=== PATIENT | female | born 1930 | race Caucasian/White ===

== ENCOUNTER 2017-01-24 09:52 | Day surgery (SDC) | payer MEDICARE, BC ==
[2017-01-22 12:45] VITALS: BMI 26.5
[~2017-01-24 09:52] MED LIST: DEXAMETHASONE SOD PHOSPHATE 10 MG/ML 1 ML VIAL IV ONE; FAMOTIDINE 20 MG/2 ML VIAL IV PRN; HEPARIN SODIUM,PORCINE 5,000 UNIT/ML 1 ML VIAL SQ ONE; HYDROmorphone 1 MG/ML 1 ML SYRINGE IVP PRN; LIDOCAINE 1% 20 ML VIAL (10MG/ML) FOR IV START INTRADERMA PRN; ONDANSETRON 4 MG/2 ML VIAL IVP PRN; ceFAZolin 2 GM in SODIUM CHLORIDE 0.9% 100 ML IVPB ONE
[2017-01-24 11:06] LABS: Aty Lym Flag Slight; CH 27.7; CHCM 32.3; HCT 41.5 % (34.0-46.0); HDW 2.44; HGB 13.7 gm/dL (11.4-16.0); MCH 28.5 pg (25.0-35.0); MCHC 33.1 g/dL (31.0-37.0); MCV 86.1 fL (80.0-100.0); Mean Platelet Volume 8.2; RBC 4.81 m/uL (3.80-5.40); RDW 13.1 % (11.5-15.5); WBC 4.4 k/uL (3.8-10.6); WBC (Perox) 4.52
[2017-01-24 11:07] LABS: Anion Gap 11 mmol/L; Blood Urea Nitrogen 14 mg/dL (7-17); Calcium 9.4 mg/dL (8.4-10.2); Carbon Dioxide 26 mmol/L (22-30); Chloride 102 mmol/L (98-107); Glucose 97 mg/dL (74-99); Non-African American GFR(MDRD) >60 (>60 ml/min/1.73 sqM); Potassium 4.5 mmol/L (3.5-5.1); Sodium 139 mmol/L (137-145)
[2017-01-24] MEDS: LACTATED RINGERS 1,000 ML IV SCH (11:07)
[2017-01-24 11:38] LABS: Add Differential Manual Differential
[2017-01-24 11:48] LABS: Manual Review Performed; Nucleated Red Blood Cells 0 /100 WBC (0-0); Total Cells Counted 100
[2017-01-24] MEDS ORDERED: SUCCINYLCHOLINE CHLORIDE 100 MG/5 ML SYR IV ONE (13:13)
[2017-01-24] MEDS ORDERED: NEOSTIGMINE 1 MG/ML 10 ML VIAL ONE (13:13)
[2017-01-24] MEDS ORDERED: PROPOFOL 10 MG/ML 20 ML VIAL IV ONE (13:13)
[2017-01-24] MEDS ORDERED: MIDAZOLAM 2 MG/2 ML VIAL ONE (13:13)
[2017-01-24] MEDS ORDERED: ROCURONIUM BROMIDE 10 MG/ML 10 ML VIAL IV ONE (13:13)
[2017-01-24] MEDS ORDERED: PHENYLEPHRINE-0.9% NACL SYG 1 MG/10 ML SYRINGE ONE (13:13)
[2017-01-24] MEDS ORDERED: fentaNYL (PF) 50 MCG/ML 2 ML AMP ONE (13:13)
[2017-01-24] MEDS ORDERED: LIDOCAINE 1% INJ 10MG/ML (20 ML MDV) ONE (13:13)
[2017-01-24] MEDS ORDERED: GLYCOPYRROLATE 0.2 MG/ML 2 ML VIAL ONE (13:13)
[2017-01-24] MEDS ORDERED: ePHEDrine 50 MG/ML 1 ML AMP ONE (13:13)
[2017-01-24] MEDS ORDERED: BUPIVACAIN-EPI 0.25%-1:200,000 30 ML VIAL SQ ONE (14:27)
[2017-01-24 14:55] VITALS: RESP 16; TEMP 98
--- NOTE | 2017-01-24 14:58 | P.OP ---
Date of Procedure: 01/24/17 Preoperative Diagnosis: Recurrent Left flank hernia Postoperative Diagnosis: Recurrent left flank hernia Procedure(s) Performed: OPen repair of left flank hernia with an overlay ultrapro mesh trimmed to 9 x 14 cm Anesthesia: STEPHANIE Surgeon: Nuria Merida Pathology: none sent Condition: stable Disposition: PACU Indications for Procedure: Painful left flank swelling Operative Findings: Hernia sac Description of Procedure: Cheng is an 86-year-old female who had a left spigelian hernia repair with primary suture repair some years ago. She presents with worsening pain and discomfort at the same s containing fat. Computed tomography scan of the abdomen reveals left flank hernia. A detailed discussion was done with the family and the patient the possibility of doing it laparoscopically are open and that that decision will be done in the operating room. Port techniques possible complications were explained. He gives informed consent. .ite with swelling. Cardiac clearance was obtained and she was intermediate to high risk for cardiac complications. Once the patient was taken to the operating room a Richter catheter was placed after general anesthesia with endotracheal intubation but due to concern that there may have containing latex it was completely removed immediately. Abdomen was prepped and draped in the usual sterile surgical fashion and with Valsalva maneuver the fact hernia was easily identifiable. Due to the patient's overall frail condition and significant risk decision was made not to do it laparoscopically and proceed with an open procedure. Abdomen was prepped and draped in the usual sterile surgical fashion usual sterile surgical fashion. Ioban was applied. The area was identified and an oblique incision was made in the left lower quadrant with a 10 blade deep into skin and subcutaneous tissue with the help of electrocautery and with the help of blunt dissection the lateral fascia was all exposed. Previous hernia repair was identified where it would be a typical spigelian hernia. However further dissection was done and a hernia sac was seen lateral to it and much closer to the anterior superior iliac spine. Ileum and I was identified and clipped and transected. After exposing the hernia sac and clearly identifying it and knowing that this did not contain any bowel I proceeded with imbrication of the hernia sac and remaining extraperitoneal and extrafascial. This imbrication was done with the help of Bovie lock thus imbricating the external oblique fascia over it all the way lateral to the anterior axillary line. Once that was done at trimmed 9 x 14 cm ultra Pro mesh was placed over it and sutured into place with 0 PDS. Subcutaneous tissue was closed with running and interrupted 2-0 Vicryl. Skin was closed with 4-0 Monocryl Steri-Strips and Mastisol applied 4 x 4 dressing was applied abdominal binder was applied. Patient tolerated procedure well there were no other complications she was extubated and taken to recovery room in stable condition. Total operative time was 1 hour
[2017-01-24] MEDS ORDERED: traMADol 50 MG TAB PO ONE (15:59)
[2017-01-24 16:13] VITALS: BP 141/69; PULSE 75
== END 2017-01-24 16:49 | disposition home or self-care (01) ==
LOC: OR 09:52
PROVIDERS: ATTEND Surgery
DX: K43.2 Incisional hernia without obstruction or gangrene (principal); I25.118 Atherosclerotic heart disease of native coronary artery with other forms of angina pectoris; I11.0 Hypertensive heart disease with heart failure; I50.9 Heart failure, unspecified; E78.00 Pure hypercholesterolemia, unspecified; E78.5 Hyperlipidemia, unspecified; I48.91 Unspecified atrial fibrillation; E03.9 Hypothyroidism, unspecified; K21.9 Gastro-esophageal reflux disease without esophagitis; K58.9 Irritable bowel syndrome, unspecified; Z82.49 Family history of ischemic heart disease and other diseases of the circulatory system; Z91.040 Latex allergy status; Z79.82 Long term (current) use of aspirin; Z79.899 Other long term (current) drug therapy
CPT/HCPCS: 86900; 86901; 80048; 85025; 86850; 49565; 49568; C1781; J2250; J1644; J1100; J2710; J0690; J2405; J2001; J3010; J2370; J0330; J2704

== ENCOUNTER → 2017-01-28 | Outpatient (CLI) | payer MEDICARE, BC ==
--- NOTE | 2017-01-28 12:00 | XR ---
EXAMINATION TYPE: XR chest 2V DATE OF EXAM: 01/28/2017 11:51 AM COMPARISON: 01/02/14 HISTORY: Shortness of breath TECHNIQUE: Frontal and lateral views of the chest are obtained. FINDINGS: Scattered senescent parenchymal changes noted. Hyperinflation compatible with COPD. No evidence for infiltrate. No evidence for atelectasis. Heart size is stable. Mediastinal structures are stable and grossly unremarkable. No evidence for hilar prominence. Degenerative changes dorsal spine. IMPRESSION: 1. No evidence for acute pulmonary disease.
== END | disposition home or self-care (01) ==
LOC: RADXRMAIN 11:30
PROVIDERS: ATTEND Surgery
DX: I50.9 Heart failure, unspecified (principal)
CPT/HCPCS: 71020

== ENCOUNTER 2017-05-10 17:41 | Inpatient (IN) | payer MEDICARE, BC ==
[2017-05-10 17:48] LABS: Glucose,Whole Blood 142 mg/dL (75-99)
[2017-05-10] MEDS ORDERED: SODIUM CHLORIDE 0.9% 1,000 ML IV STA (17:50)
[2017-05-10] MEDS ORDERED: DIPH,PERTUS(ACELL)TETVAC-LF 0.5 ML VIAL IM ONE (17:52)
--- NOTE | 2017-05-10 17:56 | ED ---
General Adult HPI - General Chief complaint: Syncope Stated complaint: syncope Time Seen by Provider: 05/10/17 17:50 Source: patient, EMS, RN notes reviewed Mode of arrival: EMS Limitations: physical limitation - History of Present Illness Initial comments: Patient is a pleasant 86-year-old female presenting to the emergency department following syncopal episode. Patient was riding on a residential monitor cutting the grass. Patient had a syncopal episode. Patient does not recall the episode well. Patient feels somewhat fatigued otherwise has no complaints. EMS reports patient had a heart rate of 24 that was confirmed by their EKG. Patient was given 1 of atropine with improvement of heart rate. Patient was never hypotensive. No history of similar symptoms previously. - Related Data Home Medications Medication Instructions Recorded Confirmed Aspirin [Adult Low Dose Aspirin EC] 81 mg PO DAILY 01/22/17 01/22/17 Famotidine [Pepcid] 40 mg PO HS 01/22/17 01/24/17 Isosorbide Mononitrate ER [Imdur] 30 mg PO DAILY@1400 01/22/17 01/24/17 Levothyroxine Sodium [Synthroid] 75 mcg PO DAILY 01/22/17 01/24/17 Metoprolol Tartrate [Lopressor] 100 mg PO BID 01/22/17 01/24/17 Multivitamins, Thera [Multivitamin] 1 tab PO DAILY 01/22/17 01/22/17 Potassium 50 meq PO DAILY 01/22/17 Pravastatin Sodium [Pravachol] 40 mg PO HS 01/22/17 01/24/17 amLODIPine [Norvasc] 5 mg PO DIRECTED 01/22/17 01/24/17 Previous Rx's Medication Instructions Recorded Magnesium Hydroxide [Milk of 30 ml PO Q24H PRN #600 ml 01/24/17 Magnesia] traMADol HCL [Ultram] 50 mg PO Q6HR PRN #15 tab 01/24/17 Allergies Allergy/AdvReac Type Severity Reaction Status Date / Time latex Allergy Unknown Itching Verified 05/10/17 17:51 Review of Systems ROS Statement: Those systems with pertinent positive or pertinent negative responses have been documented in the HPI. ROS Other: All systems not noted in ROS Statement are negative. Constitutional: Denies: fever Eyes: Denies: eye pain ENT: Denies: ear pain Respiratory: Denies: cough Cardiovascular: Denies: chest pain, palpitations Endocrine: Reports: fatigue Gastrointestinal: Denies: abdominal pain Genitourinary: Denies: urgency Musculoskeletal: Denies: back pain Skin: Denies: rash Neurological: Denies: headache, weakness, confusion Past Medical History Past Medical History: Atrial Fibrillation, GERD/Reflux, Hyperlipidemia, Hypertension, Osteoarthritis (OA), Thyroid Disorder Additional Past Medical History / Comment(s): ARTHRITIS IN KNEES, LOW THYROID, OCC. CONSTIPATION, STATES SOB WHEN WALKING DISTANCE. History of Any Multi-Drug Resistant Organisms: None Reported Past Surgical History: Cholecystectomy, Hernia Repair, Tonsillectomy Past Anesthesia/Blood Transfusion Reactions: No Reported Reaction Additional Past Anesthesia/Blood Transfusion Reaction / Comment(s): NEVER HAD BLOOD TRANSFUSION Past Psychological History: No Psychological Hx Reported Smoking Status: Never smoker Past Alcohol Use History: None Reported Past Drug Use History: None Reported - Past Family History Mother Family Medical History: Cancer Additional Family Medical History / Comment(s): LIVER CANCER General Exam Limitations: physical limitation General appearance: alert, in no apparent distress Head exam: Present: atraumatic, normocephalic Eye exam: Present: normal appearance, PERRL, EOMI. Absent: nystagmus ENT exam: Present: normal oropharynx Neck exam: Present: normal inspection. Absent: tenderness Respiratory exam: Present: normal lung sounds bilaterally Cardiovascular Exam: Present: regular rate, normal rhythm Expanded Peripheral pulses: 2+: Radial (R), Radial (L) GI/Abdominal exam: Present: soft. Absent: tenderness Extremities exam: Present: other (Skin tears left forearm) Neurological exam: Present: alert, oriented X3, CN II-XII intact. Absent: motor sensory deficit Expanded Patient oriented to: Present: person, place, time Speech: Present: fluid speech Cranial nerves: EOM's Intact: Normal Motor strength exam: RUE: 5, LUE: 5, RLE: 5, LLE: 5 Eye Response: (4) open spontaneously Motor Response: (6) obeys commands Verbal Response: (5) oriented Psychiatric exam: Present: normal affect, normal mood Skin exam: Present: other (Left arm skin tears) Course Vital Signs 05/10/17 05/10/17 17:42 18:02 Temperature 96.8 F L Pulse Rate 66 58 L Respiratory 16 16 Rate Blood Pressure 145/66 130/60 O2 Sat by Pulse 91 L 95 Oximetry EKG Findings - EKG Comments: EKG Findings:: Sinus bradycardia 57. IL 214. QRS 98. QT 46 he 4. QTC 451. Right axis. Incomplete right bundle-branch block. Septal Q waves. No acute ST change. Medical Decision Making - Medical Decision Making Patient reevaluated and resting comfortably in bed. Patient and family updated on results and plan. Patient was placed on a new antiarrhythmic. Medications were held at this time. Case discussed in detail with Dr. gonsales, who will admit for Dr. Leigh. Cardiology will be consulted. - Lab Data Result diagrams: 05/10/17 17:47 05/10/17 17:47 Lab Results 05/10/17 05/10/17 05/10/17 Range/Units 17:47 17:47 17:47 WBC 5.2 (3.8-10.6) k/uL RBC 4.28 (3.80-5.40) m/uL Hgb 12.1 (11.4-16.0) gm/dL Hct 38.1 (34.0-46.0) % MCV 88.9 (80.0-100.0) fL MCH 28.3 (25.0-35.0) pg MCHC 31.8 (31.0-37.0) g/dL RDW 13.8 (11.5-15.5) % Plt Count 159 (150-450) k/uL Neutrophils % 66 % Lymphocytes % 18 % Monocytes % 10 % Eosinophils % 1 % Basophils % 1 % Neutrophils # 3.4 (1.3-7.7) k/uL Lymphocytes # 0.9 L (1.0-4.8) k/uL Monocytes # 0.5 (0-1.0) k/uL Eosinophils # 0.1 (0-0.7) k/uL Basophils # 0.0 (0-0.2) k/uL PT (9.0-12.0) sec INR (<1.1) APTT (22.0-30.0) sec Sodium (137-145) mmol/L Potassium (3.5-5.1) mmol/L Chloride (98-107) mmol/L Carbon Dioxide (22-30) mmol/L Anion Gap mmol/L BUN (7-17) mg/dL Creatinine (0.52-1.04) mg/dL Est GFR (MDRD) Af Amer (>60 ml/min/1.73 sqM) Est GFR (MDRD) Non-Af (>60 ml/min/1.73 sqM) Glucose (74-99) mg/dL POC Glucose (mg/dL) 142 H (75-99) mg/dL POC Glu Assessment Specialist ID Ladan Ward Calcium (8.4-10.2) mg/dL Magnesium (1.6-2.3) mg/dL Total Bilirubin (0.2-1.3) mg/dL AST (14-36) U/L ALT (9-52) U/L Alkaline Phosphatase (38-126) U/L Total Creatine Kinase 32 (30-135) U/L CK-MB (CK-2) 0.6 (0.0-2.4) ng/mL CK-MB (CK-2) Rel Index 1.9 Troponin I <0.012 (0.000-0.034) ng/mL Total Protein (6.3-8.2) g/dL Albumin (3.5-5.0) g/dL TSH (0.465-4.680) mIU/L Free T4 (0.78-2.19) ng/dL Free T3 pg/mL (2.8-5.3) pg/ml 05/10/17 05/10/17 Range/Units 17:47 17:47 WBC (3.8-10.6) k/uL RBC (3.80-5.40) m/uL Hgb (11.4-16.0) gm/dL Hct (34.0-46.0) % MCV (80.0-100.0) fL MCH (25.0-35.0) pg MCHC (31.0-37.0) g/dL RDW (11.5-15.5) % Plt Count (150-450) k/uL Neutrophils % % Lymphocytes % % Monocytes % % Eosinophils % % Basophils % % Neutrophils # (1.3-7.7) k/uL Lymphocytes # (1.0-4.8) k/uL Monocytes # (0-1.0) k/uL Eosinophils # (0-0.7) k/uL Basophils # (0-0.2) k/uL PT 11.8 (9.0-12.0) sec INR 1.2 (<1.1) APTT 24.9 (22.0-30.0) sec Sodium 132 L (137-145) mmol/L Potassium 4.8 (3.5-5.1) mmol/L Chloride 99 (98-107) mmol/L Carbon Dioxide 22 (22-30) mmol/L Anion Gap 11 mmol/L BUN 17 (7-17) mg/dL Creatinine 1.10 H (0.52-1.04) mg/dL Est GFR (MDRD) Af Amer 57 (>60 ml/min/1.73 sqM) Est GFR (MDRD) Non-Af 47 (>60 ml/min/1.73 sqM) Glucose 135 H (74-99) mg/dL POC Glucose (mg/dL) (75-99) mg/dL POC Glu Assessment Specialist ID Calcium 9.0 (8.4-10.2) mg/dL Magnesium 1.7 (1.6-2.3) mg/dL Total Bilirubin 0.5 (0.2-1.3) mg/dL AST 33 (14-36) U/L ALT 47 (9-52) U/L Alkaline Phosphatase 88 (38-126) U/L Total Creatine Kinase (30-135) U/L CK-MB (CK-2) (0.0-2.4) ng/mL CK-MB (CK-2) Rel Index Troponin I (0.000-0.034) ng/mL Total Protein 5.9 L (6.3-8.2) g/dL Albumin 3.8 (3.5-5.0) g/dL TSH 5.320 H (0.465-4.680) mIU/L Free T4 1.32 (0.78-2.19) ng/dL Free T3 pg/mL 3.5 (2.8-5.3) pg/ml - Radiology Data Radiology results: report reviewed (Computed tomography scan of the brain shows no acute process), image reviewed (Chest x-ray shows no acute process) Disposition Clinical Impression: Bradycardia, Syncope Disposition: ADMITTED IP TO THIS [facility] Referrals: Nuria Merida MD [Primary Care Provider] - 1-2 days Decision Time: 18:51
[2017-05-10 18:01] LABS: Basophils % (A) 1 %; CH 27.9; CHCM 31.5; Eosinophils # (A) 0.1 k/uL (0-0.7); Eosinophils % (A) 1 %; HCT 38.1 % (34.0-46.0); HDW 2.25; HGB 12.1 gm/dL (11.4-16.0); Luc # (Auto) 0.21; Luc % (Auto) 4; Lymphocytes # (A) 0.9 k/uL (1.0-4.8); Lymphocytes % (A) 18 %; MCH 28.3 pg (25.0-35.0); MCHC 31.8 g/dL (31.0-37.0); MCV 88.9 fL (80.0-100.0); Mean Platelet Volume 7.4; Monocytes # (A) 0.5 k/uL (0-1.0); Monocytes % (A) 10 %; Neutrophils # (A) 3.4 k/uL (1.3-7.7); Neutrophils % (A) 66 %; RBC 4.28 m/uL (3.80-5.40); RDW 13.8 % (11.5-15.5); WBC 5.2 k/uL (3.8-10.6)
[2017-05-10 18:13] LABS: Magnesium 1.7 mg/dL (1.6-2.3); Potassium 4.8 mmol/L (3.5-5.1); Total Bilirubin 0.5 mg/dL (0.2-1.3); Total Protein 5.9 g/dL (6.3-8.2)
[2017-05-10 18:15] LABS: INR 1.2 (<1.1); Partial Thromboplastin Time 24.9 sec (22.0-30.0); Prothrombin Time 11.8 sec (9.0-12.0)
--- NOTE | 2017-05-10 18:19 | XR ---
EXAMINATION TYPE: XR chest 1V portable DATE OF EXAM: 05/10/2017 COMPARISON: 01/28/2017, 08/26/2011 INDICATION: Syncope TECHNIQUE: Single frontal view of the chest is obtained. FINDINGS: The heart size is enlarged. The pulmonary vasculature is normal. There are some chronic nodularity within the left upper lung field. This was present in 2010. IMPRESSION: 1. No acute pulmonary process.
[2017-05-10 18:23] LABS: Creatine Kinase 32 U/L (30-135)
--- NOTE | 2017-05-10 18:33 | CT ---
EXAMINATION TYPE: CT brain wo con DATE OF EXAM: 05/10/2017 COMPARISON: 08/26/2011 INDICATION: Syncopal episode today. DLP: 1062.30 mGycm, Automated exposure control for dose reduction was used. CONTRAST: None CT of the brain is performed utilizing 3 mm thick sections through the posterior fossa and 3 mm thick sections through the remaining calvarium. Study is performed within 24 hours of arrival to the hosp ital. No abnormal hyperdensity is present to suggest an acute intracranial hemorrhage. No mass lesion is evident. No acute infarcts are evident. Minimal periventricular white matter hypodensity is present, likely on the basis of chronic white matter ischemic changes. Ventricles and sulci are mildly prominent for the patient age. Paranasal sinuses and mastoid air cells within the [id number] are clear. IMPRESSIONS: 1. Age-related atrophy with mild periventricular white matter ischemic type changes. Exam stable fr om 2010.
[2017-05-10 18:35] LABS: Creatine Kinase MB 0.6 ng/mL (0.0-2.4); Troponin I <0.012 ng/mL (0.000-0.034)
[2017-05-10] MEDS ORDERED: NALOXONE 0.4 MG/ML 1 ML VIAL IV PRN (18:51)
[2017-05-10 20:48] VITALS: BMI 25.4
[2017-05-10] MEDS ORDERED: FLECAINIDE 50 MG TAB PO SCH (21:00)
[2017-05-10] MEDS ORDERED: METOPROLOL TARTRATE 50 MG TAB PO SCH (21:00)
[2017-05-10] MEDS: SODIUM CHLORIDE 0.9% 1,000 ML IV SCH (21:30)
[2017-05-11 03:46] LABS: Appearance,Urine Clear (Clear); Bilirubin,Urine Negative (Negative); Glucose,Urine (UA) Negative (Negative); Ketones,Urine Negative (Negative); Leukocyte Esterase,Urine Negative (Negative); Nitrite,Urine Negative (Negative); PH, Urine 6.5 (5.0-8.0); Protein,Urine Trace (Negative); Specific Gravity,Urine 1.007 (1.001-1.035); UA Billing (MACRO vs. MICRO) CHEM; Urobilinogen,Urine <2.0 mg/dL (<2.0)
[2017-05-11] MEDS: LEVOTHYROXINE 75 MCG TAB PO SCH (06:51)
[2017-05-11] MEDS: PRAVASTATIN SODIUM 40 MG TAB PO SCH (08:31)
[2017-05-11] MEDS: ASPIRIN 81 MG CHEW PO SCH (08:31)
[2017-05-11] MEDS: FAMOTIDINE 20 MG TAB PO SCH (08:31)
[2017-05-11] MEDS: CALCIUM CARB-VIT D 500MG-200UN 1 EACH TAB PO SCH (08:31)
[2017-05-11] MEDS: MULTIVITAMINS, THERA 1 EACH TAB PO SCH (08:31)
--- NOTE | 2017-05-11 08:57 | P.CRDCN ---
History of Present Illness Consult date: 05/11/17 Requesting physician: Gagan Segovia Reason for Consult (text): bradycardia, syncope Chief complaint: syncope History of present illness: This is a 86-year-old female patient who follows with Dr. Rubalcava in the office. She has a known history of hyperlipidemia, hypertension, hypothyroidism, atrial fibrillation. Was in her usual state of health until yesterday when she was mowing her lawn on a riding mower and had a syncopal episode actually fell off her lawnmower. EMS was called by her family. Upon EMS arrival, patient was found to be quite bradycardic with a heart rate in the 20s, was given atropine. Patient denies any recent episodes of dizziness, lightheadedness, near-syncope or syncope prior to this. She has recently been complaining of some fatigue as well as increasing shortness of breath when walking for long durations and was recently seen in the office by Dr. Rubalcava. At that time, flecainide was added. Laboratory values showed BUN 17 creatinine 1.1, troponins less than 0.0123 slightly elevated TSH with a normal T4 and T3. Chest x-ray was done that showed no acute pulmonary process. According to nursing staff and chart documentation patient has had no further episodes of significant bradycardia, no recurrent syncopal episodes. On examination, patient is resting comfortably in bed. She denies any complaints of chest discomfort, palpitations, dizziness or lightheadedness. Past Medical History Past Medical History: Atrial Fibrillation, GERD/Reflux, Hyperlipidemia, Hypertension, Osteoarthritis (OA), Thyroid Disorder Additional Past Medical History / Comment(s): ARTHRITIS IN KNEES, LOW THYROID, OCC. CONSTIPATION, STATES SOB WHEN WALKING DISTANCE. History of Any Multi-Drug Resistant Organisms: None Reported Past Surgical History: Cholecystectomy, Hernia Repair, Tonsillectomy Past Anesthesia/Blood Transfusion Reactions: No Reported Reaction Additional Past Anesthesia/Blood Transfusion Reaction / Comment(s): NEVER HAD BLOOD TRANSFUSION Past Psychological History: No Psychological Hx Reported Smoking Status: Never smoker Past Alcohol Use History: None Reported Past Drug Use History: None Reported - Past Family History Mother Family Medical History: Cancer Additional Family Medical History / Comment(s): LIVER CANCER Medications and Allergies Home Medications Medication Instructions Recorded Confirmed Type Famotidine [Pepcid] 40 mg PO DAILY 01/22/17 05/10/17 History Isosorbide Mononitrate ER [Imdur] 30 mg PO DAILY 01/22/17 05/10/17 History Levothyroxine Sodium [Synthroid] 75 mcg PO DAILY 01/22/17 05/10/17 History Metoprolol Tartrate [Lopressor] 100 mg PO BID 01/22/17 05/10/17 History Pravastatin Sodium [Pravachol] 40 mg PO DAILY 01/22/17 05/10/17 History amLODIPine [Norvasc] 5 mg PO DAILY 01/22/17 05/10/17 History Aspirin EC [Ecotrin Low Dose] 81 mg PO DAILY 05/10/17 05/10/17 History Jovanny/D3/Mag11/Zinc/Boss Dyer/Kana/Bor 1 tab PO DAILY 05/10/17 05/10/17 History [Caltrate 600+D Plus Tablet] Flecainide [Tambocor] 50 mg PO BID 05/10/17 05/10/17 History Losartan [Cozaar] 50 mg PO DAILY 05/10/17 05/10/17 History Multivitamins, Thera [Multivitamin 1 tab PO DAILY 05/10/17 05/10/17 History (formulary)] Allergies Allergy/AdvReac Type Severity Reaction Status Date / Time latex Allergy Unknown Itching Verified 05/10/17 17:51 Physical Exam Vitals: Vital Signs Temp Pulse Pulse Resp BP BP Pulse Ox 05/11/17 04:00 96.9 F L 54 L 16 122/83 90 L 05/11/17 00:00 96.2 F L 62 16 127/60 97 05/10/17 20:00 97.0 F L 70 16 125/77 98 05/10/17 19:53 98.0 F 56 L 18 138/67 99 05/10/17 18:49 59 L 18 131/60 97 05/10/17 18:02 58 L 16 130/60 95 05/10/17 17:42 96.8 F L 66 16 145/66 91 L Intake and Output 05/10/17 05/11/17 05/11/17 22:59 06:59 14:59 Intake Total 100 Output Total 200 Balance 100 -200 Intake: Oral 100 Output: Urine 200 Other: # Voids 1 Weight 63 kg 63.2 kg PHYSICAL EXAMINATION: HEENT: Head is atraumatic, normocephalic. Pupils equal, round. Neck is supple. There is no elevated jugular venous pressure. HEART EXAMINATION: Heart sounds regular, S1 and S2 normal. No murmur or gallop heard. CHEST EXAMINATION: Lungs are clear to auscultation, diminished. No chest wall tenderness is noted on palpation or with deep breathing. ABDOMEN: Soft, nontender. Bowel sounds are heard. No organomegaly noted. EXTREMITIES: 1+ peripheral pulses with evidence of trace peripheral edema and no calf tenderness noted. Left arm dressing dry and intact covering apparent skin tears resulting from fall. NEUROLOGIC patient is awake, alert and oriented x3. . Results 05/10/17 17:47 05/10/17 17:47 Cardiac Enzymes 05/10/17 05/10/17 05/10/17 Range/Units 17:47 17:47 23:57 AST 33 (14-36) U/L CK-MB (CK-2) 0.6 (0.0-2.4) ng/mL Troponin I <0.012 <0.012 (0.000-0.034) ng/mL 05/11/17 Range/Units 06:09 AST (14-36) U/L CK-MB (CK-2) (0.0-2.4) ng/mL Troponin I <0.012 (0.000-0.034) ng/mL Coagulation 05/10/17 Range/Units 17:47 PT 11.8 (9.0-12.0) sec APTT 24.9 (22.0-30.0) sec CBC 05/10/17 Range/Units 17:47 WBC 5.2 (3.8-10.6) k/uL RBC 4.28 (3.80-5.40) m/uL Hgb 12.1 (11.4-16.0) gm/dL Hct 38.1 (34.0-46.0) % Plt Count 159 (150-450) k/uL Comprehensive Metabolic Panel 05/10/17 Range/Units 17:47 Sodium 132 L (137-145) mmol/L Potassium 4.8 (3.5-5.1) mmol/L Chloride 99 (98-107) mmol/L Carbon Dioxide 22 (22-30) mmol/L BUN 17 (7-17) mg/dL Creatinine 1.10 H (0.52-1.04) mg/dL Glucose 135 H (74-99) mg/dL Calcium 9.0 (8.4-10.2) mg/dL AST 33 (14-36) U/L ALT 47 (9-52) U/L Alkaline Phosphatase 88 (38-126) U/L Total Protein 5.9 L (6.3-8.2) g/dL Albumin 3.8 (3.5-5.0) g/dL Current Medications Generic Name Dose Route Start Last Admin Trade Name Freq PRN Reason Stop Dose Admin Amlodipine Besylate 5 mg 05/11/17 09:00 Norvasc PO DAILY WALTER Aspirin 81 mg 05/11/17 09:00 05/11/17 08:31 Aspirin PO 81 mg DAILY WALTER Administration Calcium Carbonate 1 each 05/11/17 09:00 05/11/17 08:31 Oscal 500+D PO 1 each DAILY WATLER Administration Famotidine 40 mg 05/11/17 09:00 05/11/17 08:31 Pepcid PO 40 mg DAILY WALTER Administration Flecainide Acetate 50 mg 05/10/17 21:00 05/10/17 21:41 Tambocor PO 50 mg BID WALTER Administration Sodium Chloride 1,000 mls @ 20 mls/hr 05/10/17 19:00 05/10/17 21:30 Saline 0.9% IV Not Given .Q24H WALTER Isosorbide Mononitrate 30 mg 05/11/17 09:00 Imdur PO DAILY WALTER Levothyroxine Sodium 75 mcg 05/11/17 06:30 05/11/17 06:51 Synthroid PO 75 mcg DAILY@0630 WALTER Administration Losartan Potassium 50 mg 05/11/17 09:00 Cozaar PO DAILY WALTER Metoprolol Tartrate 100 mg 05/10/17 21:00 05/10/17 21:41 Lopressor PO Not Given BID WALTER Multivitamins 1 each 05/11/17 12:00 05/11/17 08:31 Theragran PO 1 each DAILY@1200 WALTER Administration Naloxone HCl 0.2 mg 05/10/17 18:51 Narcan IV Q2M PRN Opioid Reversal Pravastatin Sodium 40 mg 05/11/17 09:00 05/11/17 08:31 Pravachol PO 40 mg DAILY WALTER Administration Intake and Output 05/10/17 05/11/17 05/11/17 22:59 06:59 14:59 Intake Total 100 Output Total 200 Balance 100 -200 Intake: Oral 100 Output: Urine 200 Other: # Voids 1 Weight 63 kg 63.2 kg 05/10/17 17:47 05/10/17 17:47 EKG Interpretations (text) Sinus bradycardia arrhythmia with PACs, IVCD Assessment and Plan Plan: Assessment and plan #1 marked bradycardia with resultant syncope #2 paroxysmal atrial fibrillation #3 hypertension #4 hyperlipidemia #5 hypothyroidism From bias binding cutter perspective, we'll obtain a 2-D echo with Doppler. We will hold rate lowering medications. Monitor the patient for further episodes of bradycardia. Further recommendations to follow. RECORDS MANAGEMENT COORDINATOR note has been reviewed, I agree with a documented findings and plan of care. Patient was seen and examined.
[2017-05-11] MEDS ORDERED: ENOXAPARIN 40 MG/0.4 ML SYRINGE SQ SCH (09:30)
--- NOTE | 2017-05-11 09:40 | P.PN ---
Progress Note - Text This is an addendum to the dictated cardiology consultation. The patient has a history of paroxysmal atrial fibrillation, hyperlipidemia and hypertension. She was on her tractor yesterday when she had a syncopal episode while on her tractor. The EKG available to me shows marked sinus bradycardia and subsequently she is in sinus mechanism with frequent PACs but apparently the EMS had a prior documentations of atrial fibrillation but I do not have those records. The patient denies any knowledge of arrhythmia. She had no chest pain , PND or orthopnea. She is quite active physically for her age and has mild dyspnea on exertion. Her systolic function in the past was normal and she had no evidence of inducible ischemia by stress testing in 2013. It is very likely that her syncopal episode is related to bradycardia that could have been exacerbated by the beta ame and the other possibility could be post conversion pauses. At this time I will stop her beta ame and flecainide, we will start her on anticoagulation intravenously. I will obtain an echocardiogram with Doppler. It is very likely that the patient would require a permanent pacemaker and subsequently anticoagulation. I discussed this finding with the patient and she is informed standing and agreement. Thank you for this consult we will follow with you.
[2017-05-11] MEDS ORDERED: HEPARIN SODIUM,PORCINE 5,000 UNIT/ML 1 ML VIAL IV PRN (11:09)
[2017-05-11] MEDS ORDERED: HEPARIN SODIUM,PORCINE 5,000 UNIT/ML 1 ML VIAL IV ONE (11:09)
[2017-05-11] MEDS: amLODIPine 5 MG TAB PO SCH (11:10)
[2017-05-11] MEDS: ISOSORBIDE MONONITRATE ER 30 MG TAB.ER.24H PO SCH (11:11)
[2017-05-11] MEDS: LOSARTAN 50 MG TAB PO SCH (11:11)
[2017-05-11 11:46] LABS: Basophils % (A) 0 %; CHCM 32.4; Eosinophils % (A) 1 %; HCT 39.4 % (34.0-46.0); HGB 12.8 gm/dL (11.4-16.0); Luc # (Auto) 0.28; Luc % (Auto) 4; Lymphocytes # (A) 1.1 k/uL (1.0-4.8); Lymphocytes % (A) 16 %; MCH 28.2 pg (25.0-35.0); MCHC 32.5 g/dL (31.0-37.0); MCV 86.9 fL (80.0-100.0); Mean Platelet Volume 7.2; Monocytes # (A) 0.7 k/uL (0-1.0); Monocytes % (A) 9 %; Neutrophils # (A) 4.9 k/uL (1.3-7.7); Neutrophils % (A) 70 %; RBC 4.53 m/uL (3.80-5.40); RDW 13.3 % (11.5-15.5); WBC (Perox) 7.17
[2017-05-11 11:56] LABS: INR 1.2 (<1.1); Partial Thromboplastin Time 29.3 sec (22.0-30.0); Prothrombin Time 11.8 sec (9.0-12.0)
[2017-05-11] MEDS: HEPARIN SODIUM,PORCINE/D5W PMX 25,000 UNIT in DEXTROSE/WATER 1 500ML.BAG IV SCH (12:22)
--- NOTE | 2017-05-11 14:00 | ECHOF ---
Referral Reason:bradycardia, syncope MEASUREMENTS -------- HEIGHT: 157.5 cm WEIGHT: 63.0 kg BP: 122/83 RVIDd: 3.1 cm (< 3.3) IVSd: 1.1 cm (0.6 - 1.1) LVIDd: 3.6 cm (3.9 - 5.3) LVPWd: 1.2 cm (0.6 - 1.1) IVSs: 1.3 cm LVIDs: 2.2 cm LVPWs: 1.4 cm LA Diam: 4.3 cm (2.7 - 3.8) LAESV Index (A-L): 82.02 ml/m Ao Diam: 3.0 cm (2.0 - 3.7) AV Cusp: 1.9 cm (1.5 - 2.6) MV EXCURSION: 20.954 mm (> 18.000) MV EF SLOPE: 184 mm/s (70 - 150) EPSS: 0.2 cm AV maxP.47 mmHg AV meanP.01 mmHg RAP: 5.00 mmHg RVSP: 67.57 mmHg FINDINGS -------- Sinus rhythm with extra systolic beats. This was a technically good study. The left ventricular size is normal. There is borderline concentric left ventricular hypertrophy. Overall left ventricular systolic function is low-normal with, an EF between 50 - 55 %. The right ventricle is normal in size. LA is severely dilated >40 ml/m2 The right atrium is normal in size. Aortic valve is trileaflet and is mildly thickened. There is mild aortic stenosis present. Peak/mean gradient across the Aortic Valve is 16.47mmHg / 7.01mmHg. The mitral valve leaflets are mildly thickened. Moderate mitral annular calcification present. [id number] mitral regurgitation is present. Moderate tricuspid regurgitation present. There is severe pulmonary hypertension. The right ventricular systolic pressure, as measured by Doppler, is 67.57mmHg. Trace/mild (physiologic) pulmonic regurgitation. The aortic root size is normal. The inferior vena cava is mildly dilated. There is no pericardial effusion. CONCLUSIONS -------- 1. Sinus rhythm with extra systolic beats. 2. The mitral valve leaflets are mildly thickened. 3. Moderate mitral annular calcification present. 4. [id number] mitral regurgitation is present. 5. Moderate tricuspid regurgitation present. 6. There is severe pulmonary hypertension. 7. The right ventricular systolic pressure, as measured by Doppler, is 67.57mmHg. 8. Trace/mild (physiologic) pulmonic regurgitation. 9. The aortic root size is normal. 10. The inferior vena cava is mildly dilated. 11. There is no pericardial effusion. 12. This was a technically good study. 13. The left ventricular size is normal. 14. There is borderline concentric left ventricular hypertrophy. 15. Overall left ventricular systolic function is low-normal with, an EF between 50 - 55 %. 16. LA is severely dilated >40 ml/m2 17. Aortic valve is trileaflet and is mildly thickened. 18. There is mild aortic stenosis present. 19. Peak/mean gradient across the Aortic Valve is 16.47mmHg / 7.01mmHg. TEACHER ASSISTANT: Polly Feldman RDCS
--- NOTE | 2017-05-11 20:15 | HP ---
DATE OF ADMISSION: 05/10/2017 PRESENTING COMPLAINT: Passed out. HISTORY OF PRESENTING COMPLAINT: This is an 86-year-old patient of Dr. Leigh whose chronic stable medical conditions include GERD, hypertension, hyperlipidemia, osteoarthritis, hypothyroid, the past apparently has a history of atrial fibrillation. The patient sees Dr. Montserrat Patel in the office. Recently her dose of beta ame was increased. Patient was riding a tractor, mowing the lawn, he started doing this at 1:00 and mowed until 3 or 4:00. It was about 90 outside. The patient then suddenly passed out. The patient's son and grandson happen to be there and then went inside the house. She was probably out for a couple of minutes. There was no seizure activity noted. There was no palpitations. Patient's bradycardic which is brought in, feeling well now. REVIEW OF SYSTEMS: CONSTITUTIONAL: Tired. HEENT: Decreased hearing. RESPIRATORY: None. CARDIOVASCULAR: As above. GASTROINTESTINAL: Heartburn. GENITOURINARY: None. MUSCULOSKELETAL: Aches and pains in the joints. Dermatological: None. HEMATOLOGICAL: None. LYMPHATIC: None. PSYCHIATRY: None. NEUROLOGICAL: No focal symptoms. Past medical history of atrial fibrillation, GERD, hyperlipidemia, hypertension, osteoarthritis, hypothyroid. PAST SURGICAL HISTORY: Cholecystectomy and ( ) tonsillectomy. SOCIAL HISTORY: Lives by herself. No smoking. No alcohol. FAMILY HISTORY: Liver cancer. HOME MEDICATIONS: 1. Multivitamin 1 tablet p.o. daily. 2. Calcium with vitamin D 1 tablet p.o. daily. 3. Aspirin 81 mg p.o. daily. 4. Norvasc 5 mg p.o. daily. 5. Pravachol 40 mg p.o. daily. 6. Lopressor 100 mg p.o. b.i.d. 7. Cozaar 50 mg p.o. daily. 8. Synthroid 75 mcg p.o. daily. 9. Imdur ER 30 mg p.o. daily. 10. Tambocor 50 mg p.o. b.i.d. 11. Pepcid 40 mg daily. ALLERGIES: LATEX CAUSES ITCHING. PHYSICAL EXAMINATION: Vital signs on presentation: Temperature 96.8, pulse 66, respirations 16, blood pressure 138/66, pulse ox ( ) on room air. GENERAL APPEARANCE: Average build, sitting at the edge of breath, comfortable. EYES: Pupils equal. Conjunctivae normal. HEENT: External appearance of nose and ears normal. Oral cavity normal. NECK: JVD not raised. Mass not palpable. RESPIRATORY: Effort normal. LUNGS: Decreased breath sounds. CARDIOVASCULAR: First and second sounds normal. Minimal edema. ABDOMEN: Soft, nontender. Liver and spleen not palpable. LYMPHATIC: No lymph node palpable in the neck and axilla. PSYCHIATRY: Mood and affect normal. MUSCULOSKELETAL: Evidence of osteoarthritis of multiple joints. INVESTIGATIONS: White count 5.8, hemoglobin 12.0. Potassium 4.8. BUN 13, creatinine 1.10. Troponin less than 0.012. EKG shows normal sinus rhythm with some PACs. ASSESSMENT: 1. Episode of syncope could be from heat exhaustion being out for 3 hours in 90 degrees. At the same time, bradycardia associated with atrial fibrillation could be responsible. 2. Gastroesophageal reflux disease. 3. Essential hypertension. 4. Hyperlipidemia. 5. Hypothyroidism. 6. Possible paroxysmal atrial fibrillation. 7. IV heparin monitoring. PLAN: Cardiology was consulted. Home medications are resumed. Patient was put on IV heparin and held off patient's Lopressor and flecainide. Care was discussed with the patient and daughter at the bedside. Copy to Dr. Leigh.
--- NOTE | 2017-05-11 21:49 | P.GSCN ---
History of Present Illness Consult date: 05/11/17 Reason for Consult: Skin abrasions Requesting physician: Mauricio Ariza History of present illness: The patient is an 86-year-old female who presents to the hospital after having a syncopal episode when she fell of the frameman. She was found by her family members where along her left forearm, she had multiple skin abrasions. Her daughter is at bedside. Her daughter expresses concerns that her mother is still lower mowing the lawn which is over for 4 acres and takes at minimum 2-4 hours to do. The patient reports pain along the left forearm including where her IV is placed in the left antecubital fossa. General surgery is consulted regarding management of her skin. Review of Systems REVIEW OF ORGAN SYSTEMS: CONSTITUTIONAL: Denies any fever or chills. Denies recent weight loss or weight gain. HEENT: Denies any trouble with vision, hearing or nosebleeds. No difficulty swallowing. LYMPHATIC: The patient denies any lumps and bumps around the neck. ENDOCRINE: Has thyroid disorders. Denies any blood sugar glucose intolerance. RESPIRATORY: Denies pneumonia. Denies any troubles with breathing or dyspnea on exertion. CARDIOVASCULAR: Denies any chest pain, palpitations, or recent heart attacks. Has atrial fibrillation. Had syncopal episode. GASTROINTESTINAL: Has heart burn. Has constipation. GENITOURINARY: Denies any blood in urine or increased urinary frequency. MUSCULOSKELETAL: Has back pain, stiffness, joint arthritis. NEUROLOGIC: Denies any numbness or tingling along the distal extremities. No seizure disorders or headaches. PSYCHIATRIC: Denies depression or suidical ideation. HEMATOLOGIC: Has easy bleeding or bruising. Past Medical History Past Medical History: Atrial Fibrillation, GERD/Reflux, Hyperlipidemia, Hypertension, Osteoarthritis (OA), Thyroid Disorder Additional Past Medical History / Comment(s): ARTHRITIS IN KNEES, LOW THYROID, OCC. CONSTIPATION, STATES SOB WHEN WALKING DISTANCE. History of Any Multi-Drug Resistant Organisms: None Reported Past Surgical History: Cholecystectomy, Hernia Repair, Tonsillectomy Past Anesthesia/Blood Transfusion Reactions: No Reported Reaction Additional Past Anesthesia/Blood Transfusion Reaction / Comm: NEVER HAD BLOOD TRANSFUSION Past Psychological History: No Psychological Hx Reported Smoking Status: Never smoker Past Alcohol Use History: None Reported Past Drug Use History: None Reported - Past Family History Mother Family Medical History: Cancer Additional Family Medical History / Comment(s): LIVER CANCER Medications and Allergies Home Medications Medication Instructions Recorded Confirmed Type Famotidine [Pepcid] 40 mg PO DAILY 01/22/17 05/10/17 History Isosorbide Mononitrate ER [Imdur] 30 mg PO DAILY 01/22/17 05/10/17 History Levothyroxine Sodium [Synthroid] 75 mcg PO DAILY 01/22/17 05/10/17 History Metoprolol Tartrate [Lopressor] 100 mg PO BID 01/22/17 05/10/17 History Pravastatin Sodium [Pravachol] 40 mg PO DAILY 01/22/17 05/10/17 History amLODIPine [Norvasc] 5 mg PO DAILY 01/22/17 05/10/17 History Aspirin EC [Ecotrin Low Dose] 81 mg PO DAILY 05/10/17 05/10/17 History Jovanny/D3/Mag11/Zinc/Health Center Assistant/Kana/Bor 1 tab PO DAILY 05/10/17 05/10/17 History [Caltrate 600+D Plus Tablet] Flecainide [Tambocor] 50 mg PO BID 05/10/17 05/10/17 History Losartan [Cozaar] 50 mg PO DAILY 05/10/17 05/10/17 History Multivitamins, Thera [Multivitamin 1 tab PO DAILY 05/10/17 05/10/17 History (formulary)] Allergies Allergy/AdvReac Type Severity Reaction Status Date / Time latex Allergy Unknown Itching Verified 05/10/17 17:51 Surgical - Exam Vital Signs Temp Pulse Resp BP Pulse Ox 96.8 F L 66 16 145/66 91 L 05/10/17 17:42 05/10/17 17:42 05/10/17 17:42 05/10/17 17:42 05/10/17 17:42 GENERAL: Well developed and in no acute distress. Pleasant. HEENT: No sclera icterus. Extraocular movements grossly intact. Moist buccal mucosa. Head is atraumatic, normocephalic. Hears conversational speech. No nasal drainage. NECK: Supple without lymphadenopathy. No JV distention. CHEST: Non-labored respirations and equal bilateral excursions. CARDIOVASCULAR: Irregular rate and irregular rhythm. Palpable 2+ radial pulses. ABDOMEN: Soft, nontender. Nondistended. MUSCULOSKELETAL: No clubbing, cyanosis or edema. SKIN: 4 x 5 cm skin abrasion of the left proximal forearm with 3 cm defect along the distal forearm volar aspect. Steri-Strips present however with active oozing. NEUROLOGIC: No focal or lateralizing signs. PSYCH: Appropriate affect. Alert and oriented to person, place and time. Results - Labs 05/11/17 11:19 05/10/17 17:47 Abnormal Lab Results - Last 24 Hours (Table) 05/11/17 05/11/17 05/11/17 Range/Units 03:28 11:19 17:04 Plt Count 148 L (150-450) k/uL APTT 68.3 H (22.0-30.0) sec Urine Protein Trace H (Negative) Assessment and Plan (1) Atrial fibrillation Status: Acute (2) Skin laceration Status: Acute (3) Contact with powered lawnmower as cause of accidental injury Status: Acute (4) Bradycardia Status: Acute (5) Syncope Status: Acute Plan: 1. Recommend petroleum gauze along the left forearm to minimize risk for skin infection and tearing of her wounds. 2. Heparin drip for history of irregular rhythm. 3. At bedside, initial forearm dressing was discontinued which had sanguinous shadowing. Petroleum gauze was placed along proximal and distal forearm followed by 4 x 4. Patient tolerated the procedure. 4. Recommend changing antecubital fossa IV to contralateral arm. 5. Recommend dressing changes with petroleum gauze and Davonte wrap daily. 6. Discussion with patient includes avoiding lawnmower per request of her daughter at bedside. Will follow as needed.
[2017-05-12] MEDS: SODIUM CHLORIDE 0.9% 1,000 ML IV SCH (01:53)
[2017-05-12] MEDS: LEVOTHYROXINE 75 MCG TAB PO SCH (06:10)
[2017-05-12 06:41] LABS: Basophils % (A) 0 %; CH 28.1; CHCM 32.2; Eosinophils % (A) 1 %; HCT 39.5 % (34.0-46.0); HDW 2.25; HGB 12.6 gm/dL (11.4-16.0); Luc # (Auto) 0.21; Luc % (Auto) 3; Lymphocytes # (A) 0.9 k/uL (1.0-4.8); Lymphocytes % (A) 15 %; MCH 27.9 pg (25.0-35.0); MCHC 31.8 g/dL (31.0-37.0); MCV 87.6 fL (80.0-100.0); Monocytes # (A) 0.7 k/uL (0-1.0); Monocytes % (A) 10 %; Neutrophils # (A) 4.6 k/uL (1.3-7.7); Neutrophils % (A) 71 %; RBC 4.52 m/uL (3.80-5.40); RDW 13.5 % (11.5-15.5); WBC 6.4 k/uL (3.8-10.6); WBC (Perox) 6.73
[2017-05-12] MEDS: ISOSORBIDE MONONITRATE ER 30 MG TAB.ER.24H PO SCH (09:07)
[2017-05-12] MEDS: LOSARTAN 50 MG TAB PO SCH ×2 (09:07→22:13)
[2017-05-12] MEDS: amLODIPine 5 MG TAB PO SCH ×2 (09:07→22:13)
[2017-05-12] MEDS: CALCIUM CARB-VIT D 500MG-200UN 1 EACH TAB PO SCH (09:10)
[2017-05-12] MEDS: FAMOTIDINE 20 MG TAB PO SCH (09:10)
[2017-05-12] MEDS: ASPIRIN 81 MG CHEW PO SCH (09:10)
[2017-05-12] MEDS: PRAVASTATIN SODIUM 40 MG TAB PO SCH (09:10)
--- NOTE | 2017-05-12 10:48 | P.PN ---
Progress Note - Text Patient seen and evaluated. Her daughter at bedside. Patient is much more comfortable with dressings along arm. IV site changed. We'll follow as needed.
[2017-05-12] MEDS: MULTIVITAMINS, THERA 1 EACH TAB PO SCH (12:48)
[2017-05-12] MEDS: HEPARIN SODIUM,PORCINE/D5W PMX 25,000 UNIT in DEXTROSE/WATER 1 500ML.BAG IV SCH (13:27)
--- NOTE | 2017-05-12 16:34 | P.PN ---
Progress Note - Text DATE OF SERVICE: 05/12/2017 PRESENTING COMPLAINT: Passed out INTERVAL HISTORY: This is an 86-year-old female who had a syncopal episode. Was found to be in atrial fibrillation on arrival. Patient is sitting in the chair with family around, appears comfortable. Eating and tolerating her diet, ambulating within the room, moving her bowels. REVIEW OF SYSTEMS: Done for constitutional ,cardiovascular, GI, pulmonary with relevant findings as above. CURRENT MEDICATIONS Norvasc, Tambocor, heparin, Imdur, levothyroxine, Lopressor, Pravachol, PHYSICAL EXAM: VITAL SIGNS: 96.2, pulse 83, respiratory rate 18, blood pressure 118/70, oxygen saturation 93 % on room air GENERAL APPEARANCE: . Sitting in chair, not in distress. EYES: Pupils equal. Conjunctiva normal. NECK: JVD not raised. Mass not palpable. RESPIRATORY: Respiratory effort normal. Lungs clear to auscultation. CARDIOVASCULAR: First and second sounds normal. No edema. ABDOMEN: Soft. Liver and spleen not palpable. No tenderness. No mass palpable. PSYCHIATRY: Alert and oriented x3. Mood and affect normal. NEUROLOGICAL: Cranial nerves grossly intact. No facial asymmetry. Power and sensation grossly intact INVESTIGATIONS: CBC unremarkable, APTT 109.6 ASSESSMENT: Syncopal episode, either from heat exhaustion, bradycardia associated with atrial fibrillation as well. Gastroesophageal reflux disease Hyperlipidemia Hypothyroidism Possible paroxysmal atrial fibrillation. IV heparin monitoring. PLAN: Heparin drip continues, syncopal episode may well be related to bradycardia that has been exacerbated by her beta ame therefore beta ame flecainide stopped. Patient may in fact need a pacemaker with anticoagulation. We'll continue current medication and treatment plan. Will follow closely GENERAL MERCHANDISE MANAGER statement: Patient was seen and examined by nurse practitioner Juliana Plascencia in all elements of the case discussed with attending is Dr. Segovia
--- NOTE | 2017-05-12 16:42 | PN ---
Mrs. Gonzalez is an 86-year-old female who presented with syncopal episode. She had paroxysmal atrial fibrillation. She continues to be in sinus mechanism, although she had episode of sinus bradycardia. She has no chest pain. No dizziness. No palpitation. She continues to be on Norvasc 5 mg daily, aspirin once a day, IV heparin, Imdur 30 mg daily, losartan 50 mg daily. I reviewed the notes from the EMS that reported atrial fibrillation, although I do not have rhythm strip. PHYSICAL EXAMINATION: Blood pressure 117/70 with a heart in the 80s. LUNGS: Clear. HEART: Regular rate and rhythm. S1, S2, no S3, with systolic murmur. No diastolic murmur. ABDOMEN: Soft, nontender. EXTREMITIES: No edema. Lab data revealed a hemoglobin of 12.6. IMPRESSION: 1. Syncope, possible sick sinus syndrome and postconversion pauses. 2. History of hypertension. 3. Paroxysmal atrial fibrillation. 4. Hyperlipidemia. RECOMMENDATION: Patient had an echocardiogram done yesterday that showed a preserved systolic function with an ejection fraction 50% to 55% with moderate tricuspid regurgitation and severe pulmonary hypertension with mild to moderate mitral regurgitation. Will continue holding her beta ame and Tambocor. Most likely she would require a permanent pacemaker but will review her rhythm strip. There are two options; either proceeding with the permanent pacemaker implantation or consider a loop recorded. I have discussed both options with the patient and her family. Depending on her progress, further recommendation will be made.
--- NOTE | 2017-05-12 18:29 | P.PN ---
Subjective Principal diagnosis: History of laceration along the left forearm. The patient is a pleasant 86-year-old female who comes in following laceration of the left forearm after having a syncopal episode and collapsing from a lawnmower. She has history of atrial fibrillation. Her daughter is at bedside. She reports being more comfortable with dressings along arm. Her IV site is changed. Objective - Vital Signs Vital signs: Vital Signs Temp 96.9 F L 05/12/17 04:00 Pulse 83 05/12/17 04:00 Resp 18 05/12/17 04:00 BP 117/76 05/12/17 04:00 Pulse Ox 95 05/12/17 04:00 Intake & Output 05/11/17 05/12/17 05/12/17 18:59 06:59 18:59 Intake Total 400 10 Output Total 700 600 Balance -300 -590 Weight 63.2 kg 62.7 kg Intake: IV 10 Invasive Line 2 10 Intake, IV Titration 400 Amount Sodium Chloride 0.9% 1, 400 000 ml @ 20 mls/hr IV . Q24H [facility] Rx#:[id number] Output: Urine 700 600 Other: # Voids 1 - Exam GENERAL: Well developed and in no acute distress. Pleasant. HEENT: No sclera icterus. Extraocular movements grossly intact. Moist buccal mucosa. Head is atraumatic, normocephalic. Hears conversational speech. No nasal drainage. NECK: Supple without lymphadenopathy. No JV distention. CHEST: Non-labored respirations and equal bilateral excursions. CARDIOVASCULAR: Irregular rate and rhythm. Palpable 2+ radial pulses. ABDOMEN: Soft, nontender. Nondistended. MUSCULOSKELETAL: No clubbing, cyanosis or edema. NEUROLOGIC: No focal or lateralizing signs. PSYCH: Appropriate affect. Alert and oriented to person, place and time. SKIN: Dressings along forearm clean dry and intact without serosanguineous drainage. - Labs CBC & Chem 7: 05/12/17 06:01 05/10/17 17:47 Labs: Abnormal Lab Results - Last 24 Hours (Table) 05/11/17 05/11/17 05/12/17 Range/Units 11:19 17:04 06:01 Plt Count 148 L 140 L (150-450) k/uL Lymphocytes # 0.9 L (1.0-4.8) k/uL APTT 68.3 H (22.0-30.0) sec 05/12/17 Range/Units 06:01 Plt Count (150-450) k/uL Lymphocytes # (1.0-4.8) k/uL APTT 36.2 H (22.0-30.0) sec Assessment and Plan (1) Atrial fibrillation Status: Acute (2) Skin laceration Status: Acute (3) Contact with powered lawnmower as cause of accidental injury Status: Acute (4) Bradycardia Status: Acute (5) Syncope Status: Acute Plan: 1. Continue petroleum gauze along the left forearm to minimize risk for skin infection and tearing of her wounds. 2. Upon discharge home, bacitracin ointment used at least once daily. 3. She may follow-up with me as outpatient.
[2017-05-13] MEDS: SODIUM CHLORIDE 0.9% 1,000 ML IV SCH ×3 (01:01→21:51)
[2017-05-13] MEDS: LEVOTHYROXINE 75 MCG TAB PO SCH (06:25)
[2017-05-13 06:27] LABS: Basophils % (A) 0 %; CH 28.5; CHCM 33.3; Eosinophils # (A) 0.1 k/uL (0-0.7); Eosinophils % (A) 1 %; HCT 38.3 % (34.0-46.0); HDW 2.36; HGB 12.5 gm/dL (11.4-16.0); Luc # (Auto) 0.26; Luc % (Auto) 4; Lymphocytes % (A) 15 %; MCH 28.1 pg (25.0-35.0); MCHC 32.7 g/dL (31.0-37.0); MCV 85.8 fL (80.0-100.0); Mean Platelet Volume 7.2; Monocytes # (A) 0.6 k/uL (0-1.0); Monocytes % (A) 9 %; Neutrophils # (A) 4.7 k/uL (1.3-7.7); Neutrophils % (A) 71 %; RBC 4.46 m/uL (3.80-5.40); RDW 13.5 % (11.5-15.5); WBC 6.7 k/uL (3.8-10.6); WBC (Perox) 7.21
[2017-05-13 06:38] LABS: Anion Gap 9 mmol/L; Blood Urea Nitrogen 9 mg/dL (7-17); Calcium 8.8 mg/dL (8.4-10.2); Carbon Dioxide 24 mmol/L (22-30); Chloride 99 mmol/L (98-107); Glucose 102 mg/dL (74-99); Non-African American GFR(MDRD) >60 (>60 ml/min/1.73 sqM); Potassium 3.6 mmol/L (3.5-5.1); Sodium 132 mmol/L (137-145)
--- NOTE | 2017-05-13 07:21 | PN ---
DATE OF SERVICE: 05/12/2017 ATTENDING NOTE: This patient was seen and examined by me earlier today. I reviewed the note of my nurse practitioner, Ms. Plascencia. Discussed additional findings below. This is a patient who presented and was admitted with episode of syncope. She had paroxysmal atrial fibrillation and she also had episodes of sinus bradycardia. Cardiology is considering a pacemaker. On exam, sitting in bed, comfortable. RESPIRATORY: Effort normal. LUNGS: Clear. CARDIOVASCULAR: First and second sounds normal. ASSESSMENT: Syncopal episode differential includes heat exhaustion could be bradycardia and/or paroxysmal atrial fibrillation. PLAN: Continue current medication and treatment plan. Await further determination from cardiology in terms of pacemaker.
[2017-05-13] MEDS: LOSARTAN 50 MG TAB PO SCH (08:28)
[2017-05-13] MEDS: amLODIPine 5 MG TAB PO SCH (08:28)
[2017-05-13] MEDS: ISOSORBIDE MONONITRATE ER 30 MG TAB.ER.24H PO SCH (08:28)
[2017-05-13] MEDS: FAMOTIDINE 20 MG TAB PO SCH (08:28)
[2017-05-13] MEDS: PRAVASTATIN SODIUM 40 MG TAB PO SCH (08:28)
[2017-05-13] MEDS: CALCIUM CARB-VIT D 500MG-200UN 1 EACH TAB PO SCH (08:28)
[2017-05-13] MEDS: MULTIVITAMINS, THERA 1 EACH TAB PO SCH (08:29)
--- NOTE | 2017-05-13 11:27 | PN ---
Mrs. Gonzalez is an 86-year-old female who presented with a syncopal episode. She has continued to be in sinus mechanism since her admission, her rate is stable. She has no evidence of atrial fibrillation and no pauses. She denies any chest pain. No dizziness. No palpitation. She continues to be at this time on amlodipine 5 mg daily, Pepcid, isosorbide mononitrate 30 mg daily, losartan 50 mg daily and pravastatin 40 mg daily. PHYSICAL EXAMINATION: Blood pressure 119/60 with the heart rate in the low 100s. LUNGS: Clear. HEART: Regular rate and rhythm. S1, S2, no S3, no rub. ABDOMEN: Soft, nontender. EXTREMITIES: No edema. Lab data revealed BUN and creatinine of 9 and 0.8. Potassium ( ). IMPRESSION: 1. Syncopal episode possible bradycardia could be induced by the medication or slow rewarming with a post conversion pause. 2. Hypertension. RECOMMENDATIONS: I have discussed with the patient and her family the findings. I have discussed with them the possibility that she may require a pacemaker, but since no significant pauses were noted at this time, I will start her back on Lopressor is 25 mg twice a day. We will proceed with a loop recorder implantation. Will initiate anticoagulation with Eliquis. Depending on her progress, further recommendation will be made.
[2017-05-13] MEDS: METOPROLOL TARTRATE 25 MG TAB PO SCH ×2 (11:29→21:48)
[2017-05-13] MEDS ORDERED: HEPARIN SODIUM,PORCINE 5,000 UNIT/ML 1 ML VIAL IV PRN (18:49)
[2017-05-13] MEDS ORDERED: HEPARIN SODIUM,PORCINE/D5W PMX 25,000 UNIT in DEXTROSE/WATER 1 500ML.BAG IV SCH (19:00)
--- NOTE | 2017-05-13 21:07 | P.PN ---
Progress Note - Text DATE OF SERVICE: 05/13/2017 PRESENTING COMPLAINT: Passed out INTERVAL HISTORY: This is an 86-year-old female who had a syncopal episode. Was found to be in atrial fibrillation on arrival. Sustained a left arm laceration. Currently patient has converted to sinus rhythm rate in the 80s, Patient is sitting in the chair with family around, appears comfortable. Eating and tolerating her diet, ambulating within the room, and hallway with her family, moving her bowels today. REVIEW OF SYSTEMS: Done for constitutional ,cardiovascular, GI, pulmonary with relevant findings as above. CURRENT MEDICATIONS Norvasc, Tambocor, heparin, Imdur, levothyroxine, Lopressor 25 mg twice a day, Pravachol, PHYSICAL EXAM: VITAL SIGNS: Temperature 97.3, pulse 63 respiratory rate 18, blood pressure 127/71, oxygen saturation 96% on room air. GENERAL APPEARANCE: . Lying in the bed, appears comfortable. EYES: Pupils equal. Conjunctiva normal. NECK: JVD not raised. Mass not palpable. RESPIRATORY: Respiratory effort normal. Lungs clear to auscultation. CARDIOVASCULAR: First and second sounds normal. No edema. ABDOMEN: Soft. Liver and spleen not palpable. No tenderness. No mass palpable. PSYCHIATRY: Alert and oriented x3. Mood and affect normal. INTEGUMENT: Left arm laceration covered with dressing no drainage noted. INVESTIGATIONS: Platelet count 134, sodium 132, ASSESSMENT: Syncopal episode, either from heat exhaustion, bradycardia associated with atrial fibrillation improved Gastroesophageal reflux disease Hyperlipidemia Hypothyroidism Possible paroxysmal atrial fibrillation, now converted to sinus rhythm. Left arm laceration, improving PLAN: Heparin drip discontinued today in favor of Eliquis. Per cardiology no significant pauses have been noted therefore no pacemaker at this time however we'll proceed with a loop recorder implantation. We'll continue to follow closely. CABINET BUILDER statement: Patient was seen and examined by nurse practitioner Juliana Plascencia in all elements of the case discussed with attending is Dr. Segovia
[2017-05-14] MEDS: CALCIUM CARB-VIT D 500MG-200UN 1 EACH TAB PO SCH (06:07)
[2017-05-14] MEDS: METOPROLOL TARTRATE 25 MG TAB PO SCH (06:07)
[2017-05-14] MEDS: LEVOTHYROXINE 75 MCG TAB PO SCH (06:07)
[2017-05-14] MEDS: FAMOTIDINE 20 MG TAB PO SCH (06:07)
[2017-05-14] MEDS: PRAVASTATIN SODIUM 40 MG TAB PO SCH (06:07)
[2017-05-14] MEDS: LOSARTAN 50 MG TAB PO SCH (06:07)
[2017-05-14] MEDS: ISOSORBIDE MONONITRATE ER 30 MG TAB.ER.24H PO SCH (06:07)
[2017-05-14] MEDS: SODIUM CHLORIDE 0.9% 1,000 ML IV SCH (06:09)
[2017-05-14 06:24] LABS: Aty Lym Flag Slight; CH 28.5; CHCM 32.8; HCT 38.8 % (34.0-46.0); HGB 12.7 gm/dL (11.4-16.0); MCH 28.6 pg (25.0-35.0); MCHC 32.8 g/dL (31.0-37.0); MCV 87.1 fL (80.0-100.0); Mean Platelet Volume 7.5; RBC 4.45 m/uL (3.80-5.40); RDW 13.4 % (11.5-15.5); WBC 5.6 k/uL (3.8-10.6); WBC (Perox) 5.82
[2017-05-14 08:08] LABS: Add Differential Manual Differential
[2017-05-14 08:10] LABS: Manual Review Performed; Nucleated Red Blood Cells 0 /100 WBC (0-0); Total Cells Counted 100
[2017-05-14 08:58] VITALS: RESP 20
[2017-05-14] MEDS ORDERED: SODIUM CHLORIDE 0.9% 1,000 ML IV ONE (09:15)
[2017-05-14] MEDS ORDERED: ceFAZolin 2 GM in SODIUM CHLORIDE 0.9% 100 ML IVPB STA (09:20)
[2017-05-14] MEDS ORDERED: fentaNYL (PF) 50 MCG/ML 2 ML AMP IVP ONE (09:24)
[2017-05-14] MEDS ORDERED: LIDOCAINE 2% INJ 20 MG/ML SQ ONE (09:33)
[2017-05-14] MEDS ORDERED: ACETAMINOPHEN TAB 325 MG TAB PO PRN (09:46)
--- NOTE | 2017-05-14 09:51 | P.PCN ---
Date of Procedure: 05/14/17 Preoperative Diagnosis: Unexplained syncope Postoperative Diagnosis: The same Procedure(s) Performed: Loop recorder insertion Implants: Indications for Procedure: Operative Findings: Description of Procedure: This patient was brought to the lab in a fasting state. She was prepped and draped in the usual fashion. She was given IV sedation with fentanyl 25 g. The duration of sedation was about 15 minutes. The skin over the third to fourth intercostal space on the left side was infiltrated with lidocaine, parallel to the sternum. An incision was made. Reveal linq device was then inserted in the usual fashion. Patient tolerated the procedure well. Patient tolerated the procedure well. A stay silk suture was applied for hemostasis. The of sensing thresholds were excellent with R waves of 0.3 mV., Patient is programmed to a sensitivity of 0.035 mV. AF detection is on. Tachycardia detection rate is programmed to 143 and the [place] detection rate was programmed to 30 beats. Pauses of 3 seconds was programmed for detection. Plan : Patient could be discharged home later today
--- NOTE | 2017-05-14 09:51 | PN ---
DATE OF SERVICE: 05/13/2017 PRESENTING COMPLAINT: Passed out. ATTENDING NOTE: This patient was seen and examined by me on 05/13/2017. I reviewed the note of my nurse practitioner, Ms. Plascencia. Reviewed, discussed, additional findings as below. This patient presented with syncope. There was a note about A. fib from the EMS, but there is EMS report available. Patient's heart rate has been controlled here. No further symptoms. On examination, lungs are clear. CARDIOVASCULAR: First and second sounds normal. ASSESSMENT: Episode of syncope with atrial fibrillation reported from EMS. Patient presentation simply could be heat exhaustion, being outside. PLAN: We will have the nursing staff try to get the EMS run sheet, so we can actually look at the strips. In the meantime per cardiology, patient will be started on Eliquis and loop recorder is being placed. Care was discussed with the patient and family at the bedside.
[2017-05-14 12:00] VITALS: BP 137/67; PULSE 73
[2017-05-14 12:01] VITALS: TEMP 96.9
[2017-05-14] MEDS: MULTIVITAMINS, THERA 1 EACH TAB PO SCH (12:05)
--- NOTE | 2017-05-17 12:02 | DS ---
DATE OF ADMISSION: 05/10/2017 DATE OF DISCHARGE: 05/14/2017 FINAL DIAGNOSES: 1. Paroxysmal atrial fibrillation. 2. Severe sinus bradycardia. 3. Gastroesophageal reflux disease. 4. Hyperlipidemia. 5. Hypothyroidism. 6. Left arm laceration secondary to fall. 7. Severe secondary pulmonary hypertension. 8. Moderate tricuspid regurgitation, nonrheumatic. HOSPITAL COURSE: This very pleasant lady using lawnmower outside for a good 3 hours, pretty warm and the patient passed out. On the EMS run she did report atrial fibrillation though no strips could be found. Patient definitely found to be severely bradycardic. Patient's flecainide and beta ame initially held. Patient did have several episodes of low heart rate. Laceration was treated. Anticoagulation is being coordinated by Cardiology. Day of discharge care was discussed in detail with patient's family. Patient was put on a small dose of Lopressor. On the day of discharge patient is doing better. Tolerating a diet. No further episodes. On examination, LUNGS: Fair air entry. CARDIOVASCULAR: First and second sounds normal. PSYCH: Alert and oriented x3. Discharge planning more than 35 minutes. CONSULTATIONS: 1. Dr. Moraes from Cardiology. 2. Dr. Shepard from General Surgery. PROCEDURE: Loop recorder was placed. Additionally a 2-D echocardiogram showed severe pulmonary hypertension, moderate tricuspid regurgitation. DISCHARGE MEDICATIONS: 1. Pepcid 40 mg p.o. daily. 2. Imdur ER 30 mg daily. 3. Synthroid 75 mcg p.o. daily. 4. Pravachol 40 mg daily. 5. Aspirin 81 mg p.o. daily. 6. Caltrate 600 Plus D 1 tablet p.o. daily. 7. Cozaar 30 p.o. daily. 8. Multivitamin 1 tablet daily. 9. Lopressor 25 p.o. b.i.d. 10. Eliquis as per Cardiology. Discharge planning more than 35 minutes. Follow up with Dr. Leigh on 05/21/17. Follow up with Dr. Shepard on 06/11/17, follow with Dr. Marialuisa Cunningham on 06/20/17. Local bacitracin cream twice daily.
== END 2017-05-14 14:51 | disposition home or self-care (01) | DRG 262 ==
LOC: EC 17:41 → 6SEL 18:51
PROVIDERS: ADMIT Hospitalist; ATTEND Hospitalist
PROC: 3E0234Z Introduction of Serum, Toxoid and Vaccine into Muscle, Percutaneous Approach (ICD-10-PCS; 2017-05-10)
PROC: 2W2DX4Z Dressing of Left Lower Arm using Bandage (ICD-10-PCS; 2017-05-11)
PROC: 0JH602Z Insertion of Monitoring Device into Chest Subcutaneous Tissue and Fascia, Open Approach (ICD-10-PCS; principal; 2017-05-14 09:24)
DX: I48.0 Paroxysmal atrial fibrillation (principal); I27.2 Other secondary pulmonary hypertension; R06.09 Other forms of dyspnea; I49.5 Sick sinus syndrome; I10 Essential (primary) hypertension; E03.9 Hypothyroidism, unspecified; R55 Syncope and collapse; I36.1 Nonrheumatic tricuspid (valve) insufficiency; I45.10 Unspecified right bundle-branch block; T46.2X5A Adverse effect of other antidysrhythmic drugs, initial encounter; T44.7X5A Adverse effect of beta-adrenoreceptor antagonists, initial encounter; E78.5 Hyperlipidemia, unspecified; K21.9 Gastro-esophageal reflux disease without esophagitis; K59.00 Constipation, unspecified; R06.02 Shortness of breath; M17.0 Bilateral primary osteoarthritis of knee; I34.0 Nonrheumatic mitral (valve) insufficiency; I49.1 Atrial premature depolarization; T67.5XXA Heat exhaustion, unspecified, initial encounter; H91.90 Unspecified hearing loss, unspecified ear; S51.812A Laceration without foreign body of left forearm, initial encounter; Z79.899 Other long term (current) drug therapy; Z91.040 Latex allergy status; Z71.3 Dietary counseling and surveillance; Z90.49 Acquired absence of other specified parts of digestive tract; Z80.0 Family history of malignant neoplasm of digestive organs; Z79.82 Long term (current) use of aspirin; Z23 Encounter for immunization; W28.XXXA Contact with powered lawn mower, initial encounter
CPT/HCPCS: 33282; 36415; 70450; 71010; 80048; 80053; 81003; 82550; 82553; 83735; 84439; 84443; 84481; 84484; 85025; 85610; 85730; 90471; 90715; 93005; 93306; 96360; 96361; 99285

== ENCOUNTER 2017-05-27 12:01 | Inpatient (IN) | payer MEDICARE, BC ==
--- NOTE | 2017-05-27 12:06 | ED ---
General Adult HPI - General Stated complaint: Dizzy Time Seen by Provider: 05/27/17 12:02 Source: RN notes reviewed - History of Present Illness Initial comments: This is an 86-year-old female presents emergency department after having recently having a defibrillator placed. Patient states she had it done because she was passing out. Patient states since last night she has been lightheaded and feels as though she's given a passout but has not. Patient states she had a much worse episode today and that is why she called EMS. Patient states it has happened multiple times since yesterday. Patient denies any chest pain or palpitations. Patient states it's not a sensation of falling overeats definitely sensation of passing out like she did last time just prior to receiving her defibrillator. Patient told me to cardiology recently told she might need a pacemaker as well. Patient denies any recent fever chills or cough. Patient denies abdominal pain patient denies nausea vomiting diarrhea. Patient states currently she is feeling fine and has no symptoms whatsoever. - Related Data Home Medications Medication Instructions Recorded Confirmed Famotidine [Pepcid] 40 mg PO DAILY 01/22/17 05/27/17 Isosorbide Mononitrate ER [Imdur] 30 mg PO DAILY 01/22/17 05/27/17 Levothyroxine Sodium [Synthroid] 75 mcg PO DAILY 01/22/17 05/27/17 Pravastatin Sodium [Pravachol] 40 mg PO DAILY 01/22/17 05/27/17 Aspirin EC [Ecotrin Low Dose] 81 mg PO DAILY 05/10/17 05/27/17 Jovanny/D3/Mag11/Zinc/Marzipan Maker/Kana/Bor 1 tab PO DAILY 05/10/17 05/27/17 [Caltrate 600+D Plus Tablet] Losartan [Cozaar] 50 mg PO DAILY 05/10/17 05/27/17 Multivitamins, Thera [Multivitamin 1 tab PO DAILY 05/10/17 05/27/17 (formulary)] Apixaban [Eliquis] 2.5 mg PO BID 05/27/17 05/27/17 Flecainide Acetate 100 mg PO DAILY 05/27/17 05/27/17 Metoprolol Tartrate [Lopressor] 25 mg PO DAILY 05/27/17 05/27/17 Nitroglycerin Sl Tabs [Nitrostat] 0.4 mg SUBLINGUAL Q5M PRN 05/27/17 05/27/17 amLODIPine [Norvasc] 5 mg PO DAILY 05/27/17 05/27/17 Allergies Allergy/AdvReac Type Severity Reaction Status Date / Time latex Allergy Unknown Itching Verified 05/27/17 12:14 Review of Systems ROS Statement: Those systems with pertinent positive or pertinent negative responses have been documented in the HPI. ROS Other: All systems not noted in ROS Statement are negative. Past Medical History Past Medical History: Atrial Fibrillation, GERD/Reflux, Hyperlipidemia, Hypertension, Osteoarthritis (OA), Thyroid Disorder Additional Past Medical History / Comment(s): ARTHRITIS IN KNEES, LOW THYROID, OCC. CONSTIPATION, STATES SOB WHEN WALKING DISTANCE. History of Any Multi-Drug Resistant Organisms: None Reported Past Surgical History: Cholecystectomy, Hernia Repair, Tonsillectomy Past Anesthesia/Blood Transfusion Reactions: No Reported Reaction Additional Past Anesthesia/Blood Transfusion Reaction / Comment(s): NEVER HAD BLOOD TRANSFUSION Past Psychological History: No Psychological Hx Reported Smoking Status: Never smoker Past Alcohol Use History: None Reported Past Drug Use History: None Reported - Past Family History Mother Family Medical History: Cancer Additional Family Medical History / Comment(s): LIVER CANCER General Exam - General Exam Comments Initial Comments: GENERAL: Patient is well-developed and well-nourished. Patient is nontoxic and well- hydrated and is in no acute distress. ENT: Neck is soft and supple. No significant lymphadenopathy is noted. Oropharynx is clear. Moist mucous membranes. Neck has full range of motion without eliciting any pain. EYES: The sclera were anicteric and conjunctiva were pink and moist. Extraocular movements were intact and pupils were equal round and reactive to light. Eyelids were unremarkable. PULMONARY: Unlabored respirations. Good breath sounds bilaterally. No audible rales rhonchi or wheezing was noted. CARDIOVASCULAR: There is a regular rate and rhythm without any murmurs gallops or rubs. ABDOMEN: Soft and nontender with normal bowel sounds. No palpable organomegaly was noted. There is no palpable pulsatile mass. SKIN: Skin is clear with no lesions or rashes and otherwise unremarkable. NEUROLOGIC: Patient is alert and oriented x3. Cranial nerves II through XII are grossly intact. Motor and sensory are also intact. Normal speech, volume and content. Symmetrical smile. MUSCULOSKELETAL: Normal extremities with adequate strength and full range of motion. No lower extremity swelling or edema. No calf tenderness. PSYCHIATRIC: Normal psychiatric evaluation. Normal interpersonal interactions appears functionally intact in deals appropriately with others. No signs of depression. No signs of anxiety. Course Vital Signs 05/27/17 05/27/17 12:03 14:13 Temperature 97.5 F L Pulse Rate 76 66 Respiratory 18 18 Rate Blood Pressure 199/95 164/79 O2 Sat by Pulse 92 L Oximetry Medical Decision Making - Medical Decision Making EKG shows sinus rhythm at 67 bpm ID interval is 220 QRS is 104 QT interval is 420 QTC is 443. Patient's EKG shows no ST segment elevation or depression or T- wave abdomen is noted. Chest x-ray shows no acute abnormality. I spoke with Dr. Segovia he agreed to admit the patient admitted the patient consult cardiology and I wrote admitting orders. - Lab Data Result diagrams: 05/27/17 12:20 05/27/17 12:20 Lab Results 05/27/17 05/27/17 05/27/17 Range/Units 12:20 12:20 12:20 WBC 4.5 (3.8-10.6) k/uL RBC 4.51 (3.80-5.40) m/uL Hgb 13.0 (11.4-16.0) gm/dL Hct 39.2 (34.0-46.0) % MCV 87.1 (80.0-100.0) fL MCH 28.8 (25.0-35.0) pg MCHC 33.1 (31.0-37.0) g/dL RDW 13.5 (11.5-15.5) % Plt Count 220 (150-450) k/uL Neutrophils % 64 % Lymphocytes % 21 % Monocytes % 10 % Eosinophils % 1 % Basophils % 0 % Neutrophils # 2.9 (1.3-7.7) k/uL Lymphocytes # 1.0 (1.0-4.8) k/uL Monocytes # 0.5 (0-1.0) k/uL Eosinophils # 0.1 (0-0.7) k/uL Basophils # 0.0 (0-0.2) k/uL PT (9.0-12.0) sec INR (<1.1) APTT (22.0-30.0) sec Sodium 133 L (137-145) mmol/L Potassium 4.8 (3.5-5.1) mmol/L Chloride 99 (98-107) mmol/L Carbon Dioxide 27 (22-30) mmol/L Anion Gap 7 mmol/L BUN 11 (7-17) mg/dL Creatinine 0.83 (0.52-1.04) mg/dL Est GFR (MDRD) Af Amer >60 (>60 ml/min/1.73 sqM) Est GFR (MDRD) Non-Af >60 (>60 ml/min/1.73 sqM) Glucose 103 H (74-99) mg/dL Calcium 9.3 (8.4-10.2) mg/dL Magnesium 1.9 (1.6-2.3) mg/dL Total Bilirubin 0.7 (0.2-1.3) mg/dL AST 30 (14-36) U/L ALT 24 (9-52) U/L Alkaline Phosphatase 86 (38-126) U/L Total Creatine Kinase 23 L (30-135) U/L CK-MB (CK-2) 0.6 (0.0-2.4) ng/mL CK-MB (CK-2) Rel Index 2.6 Troponin I <0.012 (0.000-0.034) ng/mL Total Protein 6.6 (6.3-8.2) g/dL Albumin 4.0 (3.5-5.0) g/dL 05/27/17 Range/Units 12:20 WBC (3.8-10.6) k/uL RBC (3.80-5.40) m/uL Hgb (11.4-16.0) gm/dL Hct (34.0-46.0) % MCV (80.0-100.0) fL MCH (25.0-35.0) pg MCHC (31.0-37.0) g/dL RDW (11.5-15.5) % Plt Count (150-450) k/uL Neutrophils % % Lymphocytes % % Monocytes % % Eosinophils % % Basophils % % Neutrophils # (1.3-7.7) k/uL Lymphocytes # (1.0-4.8) k/uL Monocytes # (0-1.0) k/uL Eosinophils # (0-0.7) k/uL Basophils # (0-0.2) k/uL PT 11.2 (9.0-12.0) sec INR 1.1 (<1.1) APTT 26.9 (22.0-30.0) sec Sodium (137-145) mmol/L Potassium (3.5-5.1) mmol/L Chloride (98-107) mmol/L Carbon Dioxide (22-30) mmol/L Anion Gap mmol/L BUN (7-17) mg/dL Creatinine (0.52-1.04) mg/dL Est GFR (MDRD) Af Amer (>60 ml/min/1.73 sqM) Est GFR (MDRD) Non-Af (>60 ml/min/1.73 sqM) Glucose (74-99) mg/dL Calcium (8.4-10.2) mg/dL Magnesium (1.6-2.3) mg/dL Total Bilirubin (0.2-1.3) mg/dL AST (14-36) U/L ALT (9-52) U/L Alkaline Phosphatase (38-126) U/L Total Creatine Kinase (30-135) U/L CK-MB (CK-2) (0.0-2.4) ng/mL CK-MB (CK-2) Rel Index Troponin I (0.000-0.034) ng/mL Total Protein (6.3-8.2) g/dL Albumin (3.5-5.0) g/dL Disposition Clinical Impression: Near syncope, Bradycardia Disposition: ADMITTED IP TO THIS [facility] Time of Disposition: 14:31
[2017-05-27 12:49] LABS: Basophils % (A) 0 %; CH 28.4; CHCM 32.7; Eosinophils # (A) 0.1 k/uL (0-0.7); Eosinophils % (A) 1 %; HCT 39.2 % (34.0-46.0); HDW 2.24; Luc # (Auto) 0.17; Luc % (Auto) 4; Lymphocytes % (A) 21 %; MCH 28.8 pg (25.0-35.0); MCHC 33.1 g/dL (31.0-37.0); MCV 87.1 fL (80.0-100.0); Mean Platelet Volume 7.3; Monocytes # (A) 0.5 k/uL (0-1.0); Monocytes % (A) 10 %; Neutrophils # (A) 2.9 k/uL (1.3-7.7); Neutrophils % (A) 64 %; RBC 4.51 m/uL (3.80-5.40); RDW 13.5 % (11.5-15.5); WBC 4.5 k/uL (3.8-10.6); WBC (Perox) 4.49
[2017-05-27 12:53] LABS: ALT 24 U/L (9-52); AST 30 U/L (14-36); Alkaline Phosphatase 86 U/L (38-126); Anion Gap 7 mmol/L; Blood Urea Nitrogen 11 mg/dL (7-17); Calcium 9.3 mg/dL (8.4-10.2); Carbon Dioxide 27 mmol/L (22-30); Chloride 99 mmol/L (98-107); Glucose 103 mg/dL (74-99); INR 1.1 (<1.1); Magnesium 1.9 mg/dL (1.6-2.3); Non-African American GFR(MDRD) >60 (>60 ml/min/1.73 sqM); Partial Thromboplastin Time 26.9 sec (22.0-30.0); Potassium 4.8 mmol/L (3.5-5.1); Prothrombin Time 11.2 sec (9.0-12.0); Sodium 133 mmol/L (137-145); Total Bilirubin 0.7 mg/dL (0.2-1.3); Total Protein 6.6 g/dL (6.3-8.2)
--- NOTE | 2017-05-27 12:57 | XR ---
EXAMINATION TYPE: XR chest 2V DATE OF EXAM: 05/27/2017 COMPARISON: 05/10/2017 and 01/16/2011 HISTORY: 86-year-old female with chest pain TECHNIQUE: Frontal and lateral views FINDINGS: The heart is borderline enlarged. Loop recorder is present projecting over the left heart margin. The re is mild hyperinflation with flattening of the hemidiaphragms. Mild diffuse interstitial prominence also noted. Some nodular densities in the left upper lobe appear to have been present in 2010 but ma y be slightly increased. No consolidation or pleural effusion. IMPRESSION: 1. Borderline heart size. 2. Suspect underlying COPD. 3. Some nodular left upper lobe densities appear increased from 2011. A benign etiology such as calci fied granulomas is favored. Recommend nonemergent follow-up CT chest to further evaluate. 4. Otherwise, no acute process.
[2017-05-27 13:17] LABS: Creatine Kinase 23 U/L (30-135)
[2017-05-27 13:30] LABS: Creatine Kinase MB 0.6 ng/mL (0.0-2.4); Troponin I <0.012 ng/mL (0.000-0.034)
[2017-05-27] MEDS ORDERED: NITROGLYCERIN SL TABS 0.4 MG TAB SUBLINGUAL PRN (14:31)
[2017-05-27 18:38] LABS: Creatine Kinase 23 U/L (30-135)
[2017-05-27 18:47] LABS: Creatine Kinase MB 0.6 ng/mL (0.0-2.4); Troponin I <0.012 ng/mL (0.000-0.034)
--- NOTE | 2017-05-27 21:40 | P.HPIM ---
History of Present Illness H&P Date: 05/27/17 Chief Complaint: Nearly passed out This is a pleasant 86-year-old patient who was recently in the hospital for a syncopal episode. On that admission there was a reported atrial fibrillation by the EMS run sheet but there were no strips were found also patient is found to be significantly bradycardic. Patient's flecainide and beta ame was discontinued in later on small dose of beta ame was added. A loop recorder was placed. Patient had gone home on 05/14/2017. For 2 days patient is having these feelings of a heaviness coming in the head and nearly passing out she had a much more severe episode today, while she was standing up. And she decided to come in. Denies chest pain, no perspiration Review of Systems GEN.: tired EYES: None HEENT: Decreased hearing NECK: None RESPIRATORY: None CARDIOVASCULAR: None GASTROINTESTINAL: None GENITOURINARY: None MUSCULOSKELETAL: . The joint LYMPHATICS: None HEMATOLOGICAL: None PSYCHIATRY: None NEUROLOGICAL: No focal symptoms, no tongue biting, no incontinence Past Medical History Past Medical History: Atrial Fibrillation, GERD/Reflux, Hyperlipidemia, Hypertension, Osteoarthritis (OA), Syncope, Thyroid Disorder Additional Past Medical History / Comment(s): ARTHRITIS IN KNEES, LOW THYROID, OCC. CONSTIPATION, severe secondary pulmonary hypertension, moderate tricuspid regurgitation History of Any Multi-Drug Resistant Organisms: None Reported Past Surgical History: Cholecystectomy, Hernia Repair, Tonsillectomy Additional Past Surgical History / Comment(s): LOOP RECORDER PLACED 05-14-17 Past Anesthesia/Blood Transfusion Reactions: No Reported Reaction Additional Past Anesthesia/Blood Transfusion Reaction / Comment(s): NEVER HAD BLOOD TRANSFUSION Smoking Status: Never smoker Past Alcohol Use History: None Reported Additional Past Alcohol Use History / Comment(s): Lives alone - Past Family History Mother Family Medical History: Cancer Additional Family Medical History / Comment(s): LIVER CANCER Medications and Allergies Home Medications Medication Instructions Recorded Confirmed Type Famotidine [Pepcid] 40 mg PO DAILY 01/22/17 05/27/17 History Isosorbide Mononitrate ER [Imdur] 30 mg PO DAILY 01/22/17 05/27/17 History Levothyroxine Sodium [Synthroid] 75 mcg PO DAILY 01/22/17 05/27/17 History Pravastatin Sodium [Pravachol] 40 mg PO DAILY 01/22/17 05/27/17 History Aspirin EC [Ecotrin Low Dose] 81 mg PO DAILY 05/10/17 05/27/17 History Jovanny/D3/Mag11/Zinc/Long Line Teamster/Kana/Bor 1 tab PO DAILY 05/10/17 05/27/17 History [Caltrate 600+D Plus Tablet] Losartan [Cozaar] 50 mg PO DAILY 05/10/17 05/27/17 History Multivitamins, Thera [Multivitamin 1 tab PO DAILY 05/10/17 05/27/17 History (formulary)] Apixaban [Eliquis] 2.5 mg PO BID 05/27/17 05/27/17 History Flecainide Acetate 100 mg PO DAILY 05/27/17 05/27/17 History Metoprolol Tartrate [Lopressor] 25 mg PO DAILY 05/27/17 05/27/17 History Nitroglycerin Sl Tabs [Nitrostat] 0.4 mg SUBLINGUAL Q5M PRN 05/27/17 05/27/17 History amLODIPine [Norvasc] 5 mg PO DAILY 05/27/17 05/27/17 History Allergies Allergy/AdvReac Type Severity Reaction Status Date / Time latex Allergy Unknown Itching Verified 05/27/17 12:14 Physical Exam VITAL SIGNS: 97.5, 76, 18, 199/95 repeated 160/89, 98% room air GENERAL: Average built, sitting up at the edge of the bed, anxious appearing. EYES: Pupils equal. Conjunctiva normal. HEENT: External appearance of nose and ears normal, oral cavity grossly normal, decreased hearing. NECK: JVD not raised; masses not palpable. HEART: First and second heart sounds are normal; no edema. LUNGS: Respiratory rate normal; clear to auscultation. ABDOMEN: Soft, nontender, liver spleen not palpable, no masses palpable. LYMPHATICS: No lymph nodes palpable in the axilla and neck. PSYCH: Alert and oriented x3; mood and affect anxious appearingl. NEUROLOGICAL: Cranial nerves grossly intact; no facial asymmetry, power and sensation grossly intact. Results Results: White count 4.5, hemoglobin 13 EKG-incomplete right bundle branch block, first-degree AV block CBC & Chem 7: 05/27/17 12:20 05/27/17 12:20 Labs: Assessment and Plan Plan: ASSESSMENT: -This is a patient who presented recently with episode of syncope and the EMS and reported into fibrillation but no strip was found. Patient is found to be severely bradycardic and flecainide was discontinued and a small dose of beta ame was added. Patient had a loop recorder placed. Patient now presents with another episode of nearly passing out her EKG is unremarkable group recorder remains in place. Need to consider arrhythmia -GERD -Hyperlipidemia -Hypothyroidism -Severe secondary pulmonary hypertension cause unknown -Moderate tricuspid regurgitation nonrheumatic Plan: Home medications were resumed. Will check the patient still on flecainide as listed the home medication. Cardiology is being consulted. Loop recorder recordings to be obtained. Care was discussed with the patient.
[2017-05-28 00:32] LABS: Creatine Kinase <20 U/L (30-135)
[2017-05-28 00:45] LABS: Creatine Kinase MB 0.5 ng/mL (0.0-2.4); Troponin I <0.012 ng/mL (0.000-0.034)
[2017-05-28 03:39] LABS: Cholesterol 145 mg/dL (<200); HDL Cholesterol 66 mg/dL (40-60); Triglycerides 85 mg/dL (<150)
[2017-05-28] MEDS ORDERED: ASPIRIN 325 MG TAB PO SCH (09:00)
--- NOTE | 2017-05-28 11:00 | P.CRDCN ---
History of Present Illness Consult date: 05/28/17 History of present illness: This is a 86-year-old female with history of hypertension, diabetes mellitus and atrial fibrillation who was being treated with flecainide in the past, was recently admitted to the hospital with an episode of syncope. At the time it was felt that syncope could be cardiac and probably patient had bradyarrhythmias. However, none were documented. Patient had a loop recorder insertion and went home. Patient is now brought back with complaints of a tight feeling in the head and symptoms of lightheadedness and near-syncope. When the paramedics arrived on the scene patient was complaining of dizziness but seemed to be in a sinus rhythm with first-degree heart block with a systolic blood pressure in the range of 170. Since admission here patient hasn' t been noted to have any Sigmund arrhythmias. We'll going to have [employer] to interrogate the device. Patient will be monitored closely. If significant bradyarrhythmias documented, patient may need pacemaker Review of Systems As per the chart Past Medical History Past Medical History: Atrial Fibrillation, GERD/Reflux, Hyperlipidemia, Hypertension, Osteoarthritis (OA), Syncope, Thyroid Disorder Additional Past Medical History / Comment(s): ARTHRITIS IN KNEES, LOW THYROID, OCC. CONSTIPATION, severe secondary pulmonary hypertension, moderate tricuspid regurgitation History of Any Multi-Drug Resistant Organisms: None Reported Past Surgical History: Cholecystectomy, Hernia Repair, Tonsillectomy Additional Past Surgical History / Comment(s): LOOP RECORDER PLACED 05-14-17 Past Anesthesia/Blood Transfusion Reactions: No Reported Reaction Additional Past Anesthesia/Blood Transfusion Reaction / Comment(s): NEVER HAD BLOOD TRANSFUSION Smoking Status: Never smoker Past Alcohol Use History: None Reported Additional Past Alcohol Use History / Comment(s): Lives alone - Past Family History Mother Family Medical History: Cancer Additional Family Medical History / Comment(s): LIVER CANCER Medications and Allergies Home Medications Medication Instructions Recorded Confirmed Type Famotidine [Pepcid] 40 mg PO DAILY 01/22/17 05/27/17 History Isosorbide Mononitrate ER [Imdur] 30 mg PO DAILY 01/22/17 05/27/17 History Levothyroxine Sodium [Synthroid] 75 mcg PO DAILY 01/22/17 05/27/17 History Pravastatin Sodium [Pravachol] 40 mg PO DAILY 01/22/17 05/27/17 History Aspirin EC [Ecotrin Low Dose] 81 mg PO DAILY 05/10/17 05/27/17 History Jovanny/D3/Mag11/Zinc/Pin Setter/Kana/Bor 1 tab PO DAILY 05/10/17 05/27/17 History [Caltrate 600+D Plus Tablet] Losartan [Cozaar] 50 mg PO DAILY 05/10/17 05/27/17 History Multivitamins, Thera [Multivitamin 1 tab PO DAILY 05/10/17 05/27/17 History (formulary)] Apixaban [Eliquis] 2.5 mg PO BID 05/27/17 05/27/17 History Flecainide Acetate 100 mg PO DAILY 05/27/17 05/27/17 History Metoprolol Tartrate [Lopressor] 25 mg PO DAILY 05/27/17 05/27/17 History Nitroglycerin Sl Tabs [Nitrostat] 0.4 mg SUBLINGUAL Q5M PRN 05/27/17 05/27/17 History amLODIPine [Norvasc] 5 mg PO DAILY 05/27/17 05/27/17 History Allergies Allergy/AdvReac Type Severity Reaction Status Date / Time latex Allergy Unknown Itching Verified 05/27/17 12:14 Physical Exam Vitals: Vital Signs Temp Pulse Pulse Resp BP BP Pulse Ox 05/28/17 08:13 97.4 F L 54 L 17 136/54 96 05/28/17 04:00 97.0 F L 65 18 153/72 94 L 05/28/17 00:00 96.9 F L 66 18 149/75 96 05/27/17 20:00 97.1 F L 60 18 157/76 95 05/27/17 15:31 96.9 F L 66 18 98 05/27/17 15:24 97.5 F L 70 18 168/89 98 05/27/17 14:52 70 18 168/89 98 05/27/17 14:13 66 18 164/79 92 L 05/27/17 12:03 97.5 F L 76 18 199/95 Intake and Output 05/27/17 05/28/17 05/28/17 22:59 06:59 14:59 Intake Total 240 Output Total 300 200 Balance -300 40 Intake: Oral 240 Output: Urine 300 200 Other: # Voids 1 1 1 Weight 66.224 kg 59.2 kg GENERAL EXAM: Patient is alert and oriented and doesn't appear to be in any acute distress HEENT: Normocephalic. Normal reaction of pupils, equal size, normal range of extraocular motion. No erythema or exudates in the throat. NECK: No masses, no nuchal rigidity. CHEST: No chest wall deformity. LUNGS: Equal air entry with no crackles or wheeze. HEART: S1 and S2 normal with no audible mumurs or gallops. Regular rhythm, femorals equal on both sides.. ABDOMEN: No hepatosplenomegaly, normal bowel sounds, no guarding or rigidity. SKIN: No rashes CENTRAL NERVOUS SYSTEM: No focal deficits. EXTREMITIES: No cyanosis, clubbing or edema. Results 05/27/17 12:20 05/27/17 12:20 Cardiac Enzymes 05/27/17 05/27/17 05/27/17 Range/Units 12:20 12:20 18:05 AST 30 (14-36) U/L CK-MB (CK-2) 0.6 0.6 (0.0-2.4) ng/mL Troponin I <0.012 <0.012 (0.000-0.034) ng/mL 05/27/17 Range/Units 23:59 AST (14-36) U/L CK-MB (CK-2) 0.5 (0.0-2.4) ng/mL Troponin I <0.012 (0.000-0.034) ng/mL Coagulation 05/27/17 Range/Units 12:20 PT 11.2 (9.0-12.0) sec APTT 26.9 (22.0-30.0) sec Lipids 05/27/17 Range/Units 12:20 Triglycerides 85 (<150) mg/dL Cholesterol 145 (<200) mg/dL HDL Cholesterol 66 H (40-60) mg/dL CBC 05/27/17 Range/Units 12:20 WBC 4.5 (3.8-10.6) k/uL RBC 4.51 (3.80-5.40) m/uL Hgb 13.0 (11.4-16.0) gm/dL Hct 39.2 (34.0-46.0) % Plt Count 220 (150-450) k/uL Comprehensive Metabolic Panel 05/27/17 Range/Units 12:20 Sodium 133 L (137-145) mmol/L Potassium 4.8 (3.5-5.1) mmol/L Chloride 99 (98-107) mmol/L Carbon Dioxide 27 (22-30) mmol/L BUN 11 (7-17) mg/dL Creatinine 0.83 (0.52-1.04) mg/dL Glucose 103 H (74-99) mg/dL Calcium 9.3 (8.4-10.2) mg/dL AST 30 (14-36) U/L ALT 24 (9-52) U/L Alkaline Phosphatase 86 (38-126) U/L Total Protein 6.6 (6.3-8.2) g/dL Albumin 4.0 (3.5-5.0) g/dL Current Medications Generic Name Dose Route Start Last Admin Trade Name Freq PRN Reason Stop Dose Admin Aspirin 325 mg 05/28/17 09:00 05/28/17 08:41 Aspirin PO 325 mg DAILY WALTER Administration Nitroglycerin 0.4 mg 05/27/17 14:31 Nitrostat SUBLINGUAL Q5M PRN Chest Pain Intake and Output 05/27/17 05/28/17 05/28/17 22:59 06:59 14:59 Intake Total 240 Output Total 300 200 Balance -300 40 Intake: Oral 240 Output: Urine 300 200 Other: # Voids 1 1 1 Weight 66.224 kg 59.2 kg 05/27/17 12:20 05/27/17 12:20 EKG Interpretations (text) Showed sinus rhythm with a first-degree heart block Assessment and Plan (1) Near syncope Status: Acute (2) Atrial fibrillation Status: Acute Plan: Patient will be monitored. We'll check her device for any bradyarrhythmias. We 'll control her blood pressure optimally. Further recommendations depend upon the clinical course
--- NOTE | 2017-05-28 13:43 | P.PN ---
Progress Note - Text Presenting complaint: Near syncope Interval history: This is a pleasant 86-year-old patient who was recently in the hospital for a syncopal episode. On that admission there was a reported atrial fibrillation by the EMS run sheet but there were no strips were found also patient is found to be significantly bradycardic. Patient's flecainide and beta ame was discontinued in later on small dose of beta ame was added. A loop recorder was placed. Patient had gone home on 05/14/2017. For 2 days patient is having these feelings of a heaviness coming in the head and nearly passing out she had a much more severe episode today, while she was standing up. And she decided to come in. Denies chest pain, no perspiration. May 28/2017: Today the patient sitting up in the bed. 2 daughters at the bedside. Has had no further episodes. Dr. Song from cardiology inform me that [employer] informed him that patient did have episode of sinus pauses and bradycardia and the patient will need a pacemaker. Review of systems: Was done for constitutional, cardiovascular, GI, pulmonary. relevant finding as above Current medications are reviewed Physical exam: VITAL SIGNS: 97.4, 54, 17, 136/54, 96% room air GENERAL: Sitting up comfortable, anxious appearing. EYES: Pupils equal. Conjunctiva normal. NECK: JVD not raised; masses not palpable. HEART: First and second heart sounds are normal; no edema. LUNGS: Respiratory rate normal; clear to auscultation. ABDOMEN: Soft, nontender, liver spleen not palpable, no masses palpable. PSYCH: Alert and oriented x3; mood and affect anxious appearingl. 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 If okay with cardiology. Patient is being scheduled for pacemaker tomorrow discuss care with patient and the family the bedside. Discussed with Dr. Song from cardiology
[2017-05-28] MEDS: FAMOTIDINE 20 MG TAB PO SCH (15:21)
[2017-05-28] MEDS: amLODIPine 5 MG TAB PO SCH (15:21)
[2017-05-28] MEDS: LOSARTAN 50 MG TAB PO SCH (15:22)
[2017-05-28] MEDS: ISOSORBIDE MONONITRATE ER 30 MG TAB.ER.24H PO SCH (15:22)
[2017-05-28] MEDS: APIXABAN 2.5 MG TABLET PO SCH (21:30)
[2017-05-28] MEDS: PRAVASTATIN SODIUM 40 MG TAB PO SCH (21:30)
[2017-05-29] MEDS: amLODIPine 5 MG TAB PO SCH (07:16)
[2017-05-29] MEDS: LEVOTHYROXINE 75 MCG TAB PO SCH (07:16)
[2017-05-29] MEDS: ASPIRIN 81 MG CHEW PO SCH (07:16)
[2017-05-29] MEDS: LOSARTAN 50 MG TAB PO SCH (07:17)
[2017-05-29] MEDS: ISOSORBIDE MONONITRATE ER 30 MG TAB.ER.24H PO SCH (07:17)
[2017-05-29] MEDS: FLECAINIDE 50 MG TAB PO SCH (07:19)
[2017-05-29] MEDS: METOPROLOL TARTRATE 25 MG TAB PO SCH (07:19)
[2017-05-29] MEDS ORDERED: ceFAZolin 2 GM in SODIUM CHLORIDE 0.9% 100 ML IVPB ONE (08:51)
[2017-05-29] MEDS ORDERED: ceFAZolin 1,000 MG in SODIUM CHLORIDE 0.9% IRRIGATIO 250 ML IRRIGATION ONE (08:51)
[2017-05-29] MEDS: MULTIVITAMINS, THERA 1 EACH TAB PO SCH (11:46)
[2017-05-29] MEDS: FAMOTIDINE 20 MG TAB PO SCH (11:46)
[2017-05-29] MEDS: CALCIUM CARB-VIT D 500MG-200UN 1 EACH TAB PO SCH (11:47)
[2017-05-29] MEDS: SODIUM CHLORIDE 0.9% 1,000 ML IV SCH (11:47)
[2017-05-29] MEDS: APIXABAN 2.5 MG TABLET PO SCH (11:55)
--- NOTE | 2017-05-29 16:12 | P.PN ---
<Gagan Segovia - Last Filed: 05/29/17 16:16> Progress Note - Text Date of service: 05/29/2017 Attending note. Ex line this patient was seen and examined by me today. I reviewed the note of my nurse practitioner Valarielonnie. Discussed and reviewed additional finding as below. This patient admitted with syncope and found to have severe bradycardia and sinus pauses on the low precordial. Pending to have a pacemaker placed On examination lungs are clear, cardio vascular first seconds are normal Assessment severe bradycardia with sinus pauses indicated of sick sinus disease awaiting pacemaker implant care was discussed with the patient continue current medication treatment plan follow <ThaisJuliana Omid - Last Filed: 05/29/17 16:20> Progress Note - Text Presenting complaint: Near syncope.. Interval history: This is a pleasant 86-year-old patient who was recently in the hospital for a syncopal episode. On that admission there was a reported atrial fibrillation by the EMS run sheet but there were no strips were found also patient is found to be significantly bradycardic. Patient's flecainide and beta ame was discontinued in later on small dose of beta ame was added. A loop recorder was placed. Patient had gone home on 05/14/2017. For 2 days patient is having these feelings of a heaviness coming in the head and nearly passing out she had a much more severe episode today, while she was standing up. And she decided to come in. Denies chest pain, no perspiration. 05/29/2017: Patient sitting up in bed, waiting for surgery for pacemaker placement later this afternoon. In good spirits, currently nothing by mouth. May 28/2017: Today the patient sitting up in the bed. 2 daughters at the bedside. Has had no further episodes. Dr. Buchanan from cardiology inform me that [employer] informed him that patient did have episode of sinus pauses and bradycardia and the patient will need a pacemaker. Review of systems: Was done for constitutional, cardiovascular, GI, pulmonary. relevant finding as above Current medications are reviewed Physical exam: VITAL SIGNS: Temperature 96.7, pulse 93, respirations 18, blood pressure 147/82 , oxygen saturation 96% on room air. GENERAL: Sitting up comfortable, anxious appearing. EYES: Pupils equal. Conjunctiva normal. NECK: JVD not raised; masses not palpable. HEART: First and second heart sounds are normal; no edema. LUNGS: Respiratory rate normal; clear to auscultation. ABDOMEN: Soft, nontender, liver spleen not palpable, no masses palpable. PSYCH: Alert and oriented x3; mood and affect relaxed . Labs Assessment: -Recurrent episodes of syncope now known to be from sick sinus node causing pauses and bradycardia -GERD -Hyperlipidemia -Hypothyroidism -Severe secondary pulmonary hypertension cause unknown -Moderate tricuspid regurgitation nonrheumatic Plan: Patient is scheduled for pacemaker placement today discussed care with patient and the son at the bedside. SEWING MACHINE BOBBIN WINDER statement: Patient seen and examined by nurse practitioner Juliana Plascencia in all elements of the case discussed with attending Dr. Segovia.
[2017-05-29] MEDS: PRAVASTATIN SODIUM 40 MG TAB PO SCH (20:40)
[2017-05-30] MEDS: amLODIPine 5 MG TAB PO SCH (06:31)
[2017-05-30] MEDS: LEVOTHYROXINE 75 MCG TAB PO SCH (06:31)
[2017-05-30] MEDS: PRAVASTATIN SODIUM 40 MG TAB PO SCH (06:32)
[2017-05-30] MEDS: ASPIRIN 81 MG CHEW PO SCH (06:32)
[2017-05-30] MEDS: ISOSORBIDE MONONITRATE ER 30 MG TAB.ER.24H PO SCH (06:34)
[2017-05-30] MEDS: FAMOTIDINE 20 MG TAB PO SCH (06:34)
[2017-05-30] MEDS: LOSARTAN 50 MG TAB PO SCH (06:34)
[2017-05-30] MEDS: SODIUM CHLORIDE 0.9% 1,000 ML IV SCH (06:35)
[2017-05-30 08:50] LABS: Basophils # (A) 0.1 k/uL (0-0.2); Basophils % (A) 2 %; CH 28.2; CHCM 32.1; Eosinophils # (A) 0.1 k/uL (0-0.7); Eosinophils % (A) 2 %; HCT 40.4 % (34.0-46.0); HDW 2.15; Luc # (Auto) 0.24; Luc % (Auto) 4; Lymphocytes # (A) 0.8 k/uL (1.0-4.8); Lymphocytes % (A) 15 %; MCH 28.3 pg (25.0-35.0); MCHC 32.2 g/dL (31.0-37.0); Mean Platelet Volume 7.2; Monocytes # (A) 0.6 k/uL (0-1.0); Monocytes % (A) 11 %; Neutrophils # (A) 3.7 k/uL (1.3-7.7); Neutrophils % (A) 66 %; RBC 4.59 m/uL (3.80-5.40); RDW 13.6 % (11.5-15.5); WBC 5.6 k/uL (3.8-10.6); WBC (Perox) 5.35
[2017-05-30 09:05] LABS: Anion Gap 7 mmol/L; Blood Urea Nitrogen 15 mg/dL (7-17); Calcium 9.2 mg/dL (8.4-10.2); Carbon Dioxide 26 mmol/L (22-30); Chloride 101 mmol/L (98-107); Glucose 100 mg/dL (74-99); Non-African American GFR(MDRD) 56 (>60 ml/min/1.73 sqM); Potassium 4.3 mmol/L (3.5-5.1); Sodium 134 mmol/L (137-145)
[2017-05-30] MEDS ORDERED: IODIXANOL 270 MG/ML 50 ML ML IV ONE (11:45)
[2017-05-30] MEDS ORDERED: fentaNYL (PF) 50 MCG/ML 2 ML AMP IV ONE (11:48)
[2017-05-30] MEDS ORDERED: LIDOCAINE 1% INJ 10MG/ML (20 ML MDV) SQ ONE (11:52)
[2017-05-30] MEDS ORDERED: LIDOCAINE 1%-EPI 1:100,000 20 ML VIAL SQ ONE ×3 (11:58→13:05)
[2017-05-30] MEDS ORDERED: SODIUM CHLORIDE 0.9% 500 ML IV ONE (12:01)
[2017-05-30] MEDS ORDERED: ACETAMINOPHEN TAB 325 MG TAB PO PRN (12:41)
--- NOTE | 2017-05-30 13:21 | P.PCN ---
Date of Procedure: 05/30/17 Preoperative Diagnosis: Sick sinus syndrome Postoperative Diagnosis: The same Procedure(s) Performed: Permanent pacemaker implantation Implants: Indications for Procedure: Operative Findings: Description of Procedure: HISTORY: This is a 86-year-old female with history of atrial fibrillation who had a syncopal episode recently. Patient had a loop recorder insertion. She was found to have evidence of sinus pauses of 3-5 seconds associated symptoms of dizziness and near-syncope. Patient is advised to have permanent pacemaker implantation. CONSENT:I have discussed the risks, benefits and alternative therapies for the above-mentioned procedure and for both sedation/analgesia as well as necessary blood product administration, if indicated, as they pertain to this patient. The patient has indicated understanding and acceptance of the risks and procedures discussed. CONSCIOUS SEDATION: Patient was given IV fentanyl for sedation. The duration of the sedation was 40 minutes. PROCEDURE: Patient was brought to the lab in a fasting state. Patient was prepped and draped in the usual fashion. Patient was given IV sedation with fentanyl and Versed. The skin below the left clavicle was infiltrated with lidocaine. An incision was made parallel to deltopectoral groove was deepened until the pectoral fascia was exposed. A pocket was created by blunt dissection and cautery. Axillary venography was performed to delineate the course of the axillary vein. 2 sticks were performed into extrathoracic portion of the axillary vein and 2 sheaths were advanced over the guidewires and left in subclavian vein. LEADS: ATRIAL: This is manufactured by [employer]. Model number is 7732. Serial number is [id number] VENTRICULAR: This is manufactured by [employer]. Model number is 7735. Serial number is [id number] THE DEVICE: This is manufactured by [employer]. Model number is L301. Serial number is [id number]. The ventricular lead is maneuvered l with help of a straight and curved stylets into the left ventricle apical region. Satisfactory position was obtained and threshold measurements were made. The atrial lead was then maneuvered into the right atrial appendage. And thresholds were obtained. Both leads are time leads. THRESHOLDS: ATRIUM: The minimum patient threshold is 0.9 V at pulse width of 0.4 ms.. Impedance is 6 and 56 ohms. The P waves are 4.2m v VENTRICLE : The minimal patient threshold is 0.4 at pulse width of 54 ms. Impedance is done and 14 ohms. The R-wave is 21 The leads and pulse generator remained in the pocket after it was washed with antibiotics. Pocket was closed in the usual fashion. The fascia was closed with 2-0 Prolene ,the subcutaneous tissue was closed with 3-0 Prolene and the skin was closed with 4-0 Prolene. PROGRAMMING: MODE: AAIR to DDDR RATE: 60-120 OUTPUT: Atrium: 3.5 at 0.4 ms ventricle 3.5 at 4.4 ms FINAL IMPRESSION: 1. Axillary venography #2. Dual-chamber pacemaker implantation COMPLICATIONS: None PLAN: Patient will be continued on prophylactic antibiotics. Patient will be monitored on the telemetry unit. Chest x-ray in the morning. If stable will be discharged home in the morning
--- NOTE | 2017-05-30 13:23 | P.PCN ---
Date of Procedure: 05/30/17 Preoperative Diagnosis: Status post a loop recorder insertion Postoperative Diagnosis: Procedure(s) Performed: Removal of the loop recorder Implants: Indications for Procedure: Operative Findings: Description of Procedure: This skin over the existing loop recorder was infiltrated with lidocaine. An incision was made in the skin. The loop recorder was pulled out of the pocket. Incision was closed with the stay sutures. Duration of the conscious sedation was 10 minutes.
--- NOTE | 2017-05-30 16:24 | P.PN ---
<Juliana Plascencia - Last Filed: 05/30/17 18:55> Progress Note - Text Presenting complaint: Near syncope.. Interval history: This is a pleasant 86-year-old patient who was recently in the hospital for a syncopal episode. On that admission there was a reported atrial fibrillation by the EMS run sheet but there were no strips were found also patient is found to be significantly bradycardic. Patient's flecainide and beta ame was discontinued in later on small dose of beta ame was added. A loop recorder was placed. Patient had gone home on 05/14/2017. For 2 days patient is having these feelings of a heaviness coming in the head and nearly passing out she had a much more severe episode today, while she was standing up. And she decided to come in. Denies chest pain, no perspiration. May 28/2017: Today the patient sitting up in the bed. 2 daughters at the bedside. Has had no further episodes. Dr. Buchanan from cardiology inform me that [employer] informed him that patient did have episode of sinus pauses and bradycardia and the patient will need a pacemaker. 05/29/2017: Patient sitting up in bed, waiting for surgery for pacemaker placement later this afternoon. In good spirits, currently nothing by mouth. 05/30/2017: Patient resting quietly in bed, waiting for her surgery for pacemaker placement, procedure yesterday was canceled and moved to today. In good spirits, currently nothing by mouth, anxious to get procedure completed and be discharged home. Review of systems: Was done for constitutional, cardiovascular, GI, pulmonary. relevant finding as above Current medications: Amlodipine, aspirin, famotidine, Imdur, Synthroid, Cozaar, Pravachol. Physical exam: VITAL SIGNS: Temperature 96.9, pulse 98, respiratory rate 18, blood pressure 113 /72, oxygen saturation 97% on room air. GENERAL: Lying in bed, comfortable, calm appearing. EYES: Pupils equal. Conjunctiva normal. NECK: JVD not raised; masses not palpable. HEART: First and second heart sounds are normal; no edema. LUNGS: Respiratory rate normal; clear to auscultation. ABDOMEN: Soft, nontender, liver spleen not palpable, no masses palpable. PSYCH: Alert and oriented x3; mood and affect relaxed . Labs Assessment: -Recurrent Syncope now known to be from sick sinus node causing pauses and bradycardia, pacemaker insertion pending -GERD -Hyperlipidemia -Hypothyroidism -Severe secondary pulmonary hypertension cause unknown -Moderate tricuspid regurgitation nonrheumatic Plan: Pacemaker insertion plan for today, the patient remains stable may discharge home tomorrow. BILLING SUPERVISOR statement: Patient seen and examined by nurse practitioner Juliana Plascencia in all elements of the case discussed with attending Dr. Segovia. <Gagan Segovia - Last Filed: 05/30/17 23:06> Progress Note - Text Attending note. Date of service-05/30/2017 This patient was seen and examined by me today. I reviewed the note of my nurse practitioner, Ms. Plascencia. Discussed with her, additional findings as below Patient admitted with severe symptomatic bradycardia and sick sinus disease. Underwent a permanent pacemaker placement today. Resting and went. Comfortable On examination: Cardiovascular first seconds are normal, lungs fair entry Assessment and plan: Severe bradycardia with sinus node disease, causing recurrent syncope, now has a permanent pacemaker
[2017-05-30] MEDS: ceFAZolin 2 GM in SODIUM CHLORIDE 0.9% 100 ML IVPB SCH ×2 (17:01→23:13)
[2017-05-30] MEDS: MULTIVITAMINS, THERA 1 EACH TAB PO SCH (17:02)
[2017-05-30] MEDS: CALCIUM CARB-VIT D 500MG-200UN 1 EACH TAB PO SCH (17:02)
[2017-05-30] MEDS ORDERED: PSYLLIUM HUSK 100% 6 GM PACKET PO PRN (20:51)
[2017-05-31] MEDS: ceFAZolin 2 GM in SODIUM CHLORIDE 0.9% 100 ML IVPB SCH ×2 (04:48→11:37)
[2017-05-31] MEDS: SODIUM CHLORIDE 0.9% 1,000 ML IV SCH (04:49)
[2017-05-31 06:11] LABS: Basophils % (A) 1 %; CH 28.1; CHCM 32.4; Eosinophils # (A) 0.1 k/uL (0-0.7); Eosinophils % (A) 2 %; HCT 39.1 % (34.0-46.0); HDW 2.14; HGB 12.8 gm/dL (11.4-16.0); Luc # (Auto) 0.24; Luc % (Auto) 4; Lymphocytes # (A) 0.9 k/uL (1.0-4.8); Lymphocytes % (A) 15 %; MCH 28.6 pg (25.0-35.0); MCHC 32.8 g/dL (31.0-37.0); MCV 87.2 fL (80.0-100.0); Mean Platelet Volume 7.1; Monocytes # (A) 0.5 k/uL (0-1.0); Monocytes % (A) 8 %; Neutrophils # (A) 4.1 k/uL (1.3-7.7); Neutrophils % (A) 71 %; RBC 4.49 m/uL (3.80-5.40); RDW 13.5 % (11.5-15.5); WBC 5.8 k/uL (3.8-10.6); WBC (Perox) 5.78
[2017-05-31] MEDS: LEVOTHYROXINE 75 MCG TAB PO SCH (06:18)
[2017-05-31 06:28] LABS: Anion Gap 9 mmol/L; Blood Urea Nitrogen 13 mg/dL (7-17); Calcium 8.9 mg/dL (8.4-10.2); Carbon Dioxide 23 mmol/L (22-30); Chloride 101 mmol/L (98-107); Glucose 102 mg/dL (74-99); Non-African American GFR(MDRD) 57 (>60 ml/min/1.73 sqM); Potassium 4.3 mmol/L (3.5-5.1); Sodium 133 mmol/L (137-145)
--- NOTE | 2017-05-31 07:12 | XR ---
EXAMINATION TYPE: XR chest 2V DATE OF EXAM: 05/31/2017 HISTORY: Lead placement check. REFERENCE: Previous study dated 05/27/2017. FINDINGS: A bipolar pacemaker has been inserted via a left subclavian approach. Approximately overlie s the right atrium and distally overlies the right ventricle. The lungs appear clear. Pleural space are clear. I do not see evidence of pneumothorax. The heart is not enlarged. IMPRESSION: I DO NOT SEE A POST PACEMAKER INSERTION COMPLICATION
[2017-05-31] MEDS: FLECAINIDE 50 MG TAB PO SCH (07:55)
[2017-05-31] MEDS: amLODIPine 5 MG TAB PO SCH (07:55)
[2017-05-31] MEDS: ISOSORBIDE MONONITRATE ER 30 MG TAB.ER.24H PO SCH (07:55)
[2017-05-31] MEDS: ASPIRIN 81 MG CHEW PO SCH (07:55)
[2017-05-31] MEDS: LOSARTAN 50 MG TAB PO SCH (07:55)
[2017-05-31] MEDS: METOPROLOL TARTRATE 25 MG TAB PO SCH (07:55)
[2017-05-31] MEDS ORDERED: FAMOTIDINE 20 MG TAB PO SCH (09:00)
[2017-05-31 09:06] VITALS: RESP 20
[2017-05-31 11:30] VITALS: BP 99/54; PULSE 58; TEMP 96.9
[2017-05-31] MEDS: MULTIVITAMINS, THERA 1 EACH TAB PO SCH (12:05)
[2017-05-31] MEDS: CALCIUM CARB-VIT D 500MG-200UN 1 EACH TAB PO SCH (12:05)
[2017-05-31] MEDS ORDERED: CEPHALEXIN 500 MG CAP PO SCH (13:00)
--- NOTE | 2017-05-31 15:07 | P.PN ---
Subjective Principal diagnosis: pacemaker is is an 86-year-old female with history of atrial fibrillation, who presented to the hospital with syncopal episode. Patient did have a loop recorder in place and was found to have evidence of significant pauses, she underwent implantation of a permanent pacemaker by Dr. Ly. Device was interrogated and is functioning appropriately. Chest x-ray was also performed which did not reveal any evidence of a pneumothorax. Patient was seen and examined this morning, feels well, no complaints. She will be discharged home today and have a follow-up appointment in the device clinic in one week. We will continue by mouth antibiotics for 3 days. Objective - Vital Signs Vital signs: Vital Signs Temp 96.9 F L 05/31/17 11:29 Pulse 58 L 05/31/17 11:29 Resp 20 05/31/17 11:29 BP 99/54 05/31/17 11:29 Pulse Ox 98 05/31/17 11:29 Intake & Output 05/30/17 05/31/17 05/31/17 18:59 06:59 18:59 Intake Total 790 60 360 Output Total 400 Balance 790 60 -40 Weight 59.3 kg Intake: IV 150 60 Sodium Chloride 0.9% 1, 60 000 ml @ 20 mls/hr IV . Q24H [facility] Rx#:[id number] Intake, IV Titration 160 Amount Sodium Chloride 0.9% 1, 160 000 ml @ 20 mls/hr IV . Q24H [facility] Rx#:[id number] Oral 480 360 Output: Urine 400 Other: # Voids 1 2 # Bowel Movements 1 - Exam PHYSICAL EXAMINATION: HEENT: [Head is atraumatic, normocephalic. Pupils equal, round. Neck is supple. There is no elevated jugular venous pressure.] HEART EXAMINATION: [Heart S1, S2 normal. No murmur or gallop heard.] CHEST EXAMINATION:[ Lungs are clear to auscultation and precussion. No chest wall tenderness is noted on palpation or with deep breathing.]site of pacemaker insertion dressing is dry and intact. ABDOMEN: [ Soft, nontender. Bowel sounds are heard. No organomegaly noted]. EXTREMITIES:[ 2+ peripheral pulses with no evidence of peripheral edema and no calf tenderness noted]. NEUROLOGIC [patient is awake, alert and oriented -3.] . - Labs CBC & Chem 7: 05/31/17 05:46 05/31/17 05:46 Labs: Abnormal Lab Results - Last 24 Hours (Table) 05/31/17 05/31/17 Range/Units 05:46 05:46 Lymphocytes # 0.9 L (1.0-4.8) k/uL Sodium 133 L (137-145) mmol/L Glucose 102 H (74-99) mg/dL Assessment and Plan (1) Paroxysmal a-fib Status: Acute (2) Sinus pause Status: Acute (3) Pacemaker Status: Acute (4) Syncope Status: Acute Plan: from cardiology's perspective, patient may be able to be discharged home today. We will make her an appointment in the device clinic in one week and to see Dr. Ly in the office. We will continue by mouth antibiotics for 3 days. DNP note has been reviewed, I agree with a documented findings and plan of care. Patient was seen and examined.
--- NOTE | 2017-05-31 16:23 | P.DS ---
Providers Date of admission: 05/27/17 14:31 Expected date of discharge: 05/31/17 Attending physician: Gagan Segovia Consults: 05/27/17 14:31 Consult Physician Urgent Consulting Provider: [facility] Reason/Comments: Near syncope Do you want consulting provider notified?: Yes Dr. Ly Primary care physician: [facility] Course: This is a patient who was recently in the hospital with syncope. There is a questionable history of atrial fibrillation. Patient had been sent with loop recorder. Patient presents with recurrent syncope order severe bradycardia and sinus pauses. Patient had a pacemaker placed. Now doing well. Care was discussed in detail with the patient. Discharge planning more than 35 minutes On examination: Pacemaker on the left chest wall, lungs are clear Plan - Discharge Summary New Discharge Prescriptions: New Psyllium Husk 100% [Metamucil Packet] 6 gm PO DAILY PRN packet PRN Reason: constipation Cephalexin [Keflex] 500 mg PO TID #9 cap Continue Pravastatin Sodium [Pravachol] 40 mg PO DAILY Isosorbide Mononitrate ER [Imdur] 30 mg PO DAILY Levothyroxine Sodium [Synthroid] 75 mcg PO DAILY Famotidine [Pepcid] 40 mg PO DAILY Losartan [Cozaar] 50 mg PO DAILY Multivitamins, Thera [Multivitamin (formulary)] 1 tab PO DAILY Jovanny/D3/Mag11/Zinc/Closet Builder/Kana/Bor [Caltrate 600+D Plus Tablet] 1 tab PO DAILY Aspirin EC [Ecotrin Low Dose] 81 mg PO DAILY Nitroglycerin Sl Tabs [Nitrostat] 0.4 mg SUBLINGUAL Q5M PRN PRN Reason: Chest Pain Apixaban [Eliquis] 2.5 mg PO BID amLODIPine [Norvasc] 5 mg PO DAILY Flecainide Acetate 100 mg PO DAILY Metoprolol Tartrate [Lopressor] 25 mg PO DAILY Discharge Medication List Famotidine [Pepcid] 40 mg PO DAILY 01/22/17 [History] Isosorbide Mononitrate ER [Imdur] 30 mg PO DAILY 01/22/17 [History] Levothyroxine Sodium [Synthroid] 75 mcg PO DAILY 01/22/17 [History] Pravastatin Sodium [Pravachol] 40 mg PO DAILY 01/22/17 [History] Aspirin EC [Ecotrin Low Dose] 81 mg PO DAILY 05/10/17 [History] Jovanny/D3/Mag11/Zinc/Closet Builder/Kana/Bor [Caltrate 600+D Plus Tablet] 1 tab PO DAILY 05/10 [History] Losartan [Cozaar] 50 mg PO DAILY 05/10/17 [History] Multivitamins, Thera [Multivitamin (formulary)] 1 tab PO DAILY 05/10/17 [History ] Apixaban [Eliquis] 2.5 mg PO BID 05/27/17 [History] Flecainide Acetate 100 mg PO DAILY 05/27/17 [History] Metoprolol Tartrate [Lopressor] 25 mg PO DAILY 05/27/17 [History] Nitroglycerin Sl Tabs [Nitrostat] 0.4 mg SUBLINGUAL Q5M PRN 05/27/17 [History] amLODIPine [Norvasc] 5 mg PO DAILY 05/27/17 [History] Cephalexin [Keflex] 500 mg PO TID #9 cap 05/31/17 [Rx] Psyllium Husk 100% [Metamucil Packet] 6 gm PO DAILY PRN packet 05/31/17 [Rx] Follow up Appointment(s)/Referral(s): Oscar Leigh MD [Primary Care Provider] - 06/05/17 11:45 am Rose Ly MD [STAFF PHYSICIAN] - 06/06/17 4:15 pm Ambulatory/Diagnostic Orders: Basic Metabolic Panel [LAB.AMB] Location: Determined By Patient Patient Instructions/Handouts: Pacemaker (DC), Heart Healthy Diet (DC) Activity/Diet/Wound Care/Special Instructions: Continue heart healthy diet Patient to use cane per physical therapy instructions Discharge Disposition: HOME SELF-CARE
[2017-05-31] MEDS ORDERED: APIXABAN 2.5 MG TABLET PO SCH (21:00)
== END 2017-05-31 17:25 | disposition home or self-care (01) | DRG 244 ==
LOC: EC 12:01 → 6SEL 14:31
PROVIDERS: ADMIT Hospitalist; ATTEND Hospitalist
PROC: 0JH606Z Insertion of Pacemaker, Dual Chamber into Chest Subcutaneous Tissue and Fascia, Open Approach (ICD-10-PCS; principal; 2017-05-30 11:15)
PROC: 02H63JZ Insertion of Pacemaker Lead into Right Atrium, Percutaneous Approach (ICD-10-PCS; principal; 2017-05-30 11:15)
PROC: 02HL3JZ Insertion of Pacemaker Lead into Left Ventricle, Percutaneous Approach (ICD-10-PCS; principal; 2017-05-30 11:15)
PROC: 0WP80YZ Removal of Other Device from Chest Wall, Open Approach (ICD-10-PCS; principal; 2017-05-30 11:15)
DX: I49.5 Sick sinus syndrome (principal); I27.2 Other secondary pulmonary hypertension; I48.0 Paroxysmal atrial fibrillation; E11.9 Type 2 diabetes mellitus without complications; I36.1 Nonrheumatic tricuspid (valve) insufficiency; E03.9 Hypothyroidism, unspecified; E78.5 Hyperlipidemia, unspecified; I10 Essential (primary) hypertension; I44.0 Atrioventricular block, first degree; K21.9 Gastro-esophageal reflux disease without esophagitis; M17.0 Bilateral primary osteoarthritis of knee; Z79.01 Long term (current) use of anticoagulants; Z79.899 Other long term (current) drug therapy; Z80.0 Family history of malignant neoplasm of digestive organs
CPT/HCPCS: 33208; 33284; 36415; 71020; 80048; 80053; 80061; 82550; 82553; 83735; 84484; 85025; 85610; 85730; 93005; 99285

== ENCOUNTER 2017-07-03 17:36 | Inpatient (IN) | payer MEDICARE, BC ==
[2017-07-03] MEDS ORDERED: SODIUM CHLORIDE 0.9% 1,000 ML IV STA (17:57)
--- NOTE | 2017-07-03 18:09 | ED ---
Altered Mental Status HPI - General Chief Complaint: Altered Mental Status Stated Complaint: ALTERED MENTAL, SLURRED SPEECH, MEMORY LOSS Time Seen by Provider: 07/03/17 17:55 Source: patient, family, RN notes reviewed Mode of arrival: wheelchair Limitations: no limitations - History of Present Illness Initial Comments: This is an 86-year-old female who states she has sudden onset between 3 PM today of memory loss and trouble with speech. She was making dinner at the time. She been on about with her family today had no problems no symptoms and this suddenly started. Her memory slowly coming back in her garbled speech has resolved. She has no prior history of strokes no headaches dizziness blurry vision apparently she did state to her daughter that her head felt powerful earlier today. No focal weakness of arms or legs or other symptoms at this time no recent fevers chills or sweats. She did recently get a pacemaker but apparently this is working well. MD Complaint: altered mental status, other - Related Data Home Medications Medication Instructions Recorded Confirmed Famotidine [Pepcid] 40 mg PO DAILY 01/22/17 07/03/17 Isosorbide Mononitrate ER [Imdur] 30 mg PO DAILY 01/22/17 07/03/17 Levothyroxine Sodium [Synthroid] 75 mcg PO DAILY 01/22/17 07/03/17 Pravastatin Sodium [Pravachol] 40 mg PO DAILY 01/22/17 07/03/17 Jovanny/D3/Mag11/Zinc/Cord Cutter/Kana/Bor 1 tab PO DAILY 05/10/17 07/03/17 [Caltrate 600+D Plus Tablet] Losartan [Cozaar] 50 mg PO DAILY 05/10/17 07/03/17 Multivitamins, Thera [Multivitamin 1 tab PO DAILY 05/10/17 07/03/17 (formulary)] Apixaban [Eliquis] 2.5 mg PO BID 05/27/17 07/03/17 Flecainide Acetate 50 mg PO BID 05/27/17 07/03/17 Metoprolol Tartrate [Lopressor] 12.5 mg PO BID 05/27/17 07/03/17 Nitroglycerin Sl Tabs [Nitrostat] 0.4 mg SUBLINGUAL Q5M PRN 05/27/17 07/03/17 amLODIPine [Norvasc] 5 mg PO DAILY 05/27/17 07/03/17 Cholecalciferol [Vitamin D3] 1,000 unit PO DAILY 07/03/17 07/03/17 Allergies Allergy/AdvReac Type Severity Reaction Status Date / Time latex Allergy Unknown Itching Verified 07/03/17 19:31 Review of Systems ROS Statement: Those systems with pertinent positive or pertinent negative responses have been documented in the HPI. ROS Other: All systems not noted in ROS Statement are negative. Past Medical History Past Medical History: Atrial Fibrillation, GERD/Reflux, Hyperlipidemia, Hypertension, Osteoarthritis (OA), Syncope, Thyroid Disorder Additional Past Medical History / Comment(s): ARTHRITIS IN KNEES, LOW THYROID, OCC. CONSTIPATION, severe secondary pulmonary hypertension, moderate tricuspid regurgitation History of Any Multi-Drug Resistant Organisms: None Reported Past Surgical History: Cholecystectomy, Hernia Repair, Tonsillectomy Additional Past Surgical History / Comment(s): LOOP RECORDER PLACED 05-14-17 Past Anesthesia/Blood Transfusion Reactions: No Reported Reaction Additional Past Anesthesia/Blood Transfusion Reaction / Comment(s): NEVER HAD BLOOD TRANSFUSION Past Psychological History: No Psychological Hx Reported Smoking Status: Never smoker Past Alcohol Use History: None Reported Past Drug Use History: None Reported - Past Family History Mother Family Medical History: Cancer Additional Family Medical History / Comment(s): LIVER CANCER General Exam - General Exam Comments Initial Comments: This is a well-developed well-nourished awake alert oriented 3 female Limitations: no limitations General appearance: alert, in no apparent distress Head exam: Present: atraumatic, normocephalic, normal inspection Eye exam: Present: normal appearance, PERRL, EOMI. Absent: scleral icterus, conjunctival injection, periorbital swelling ENT exam: Present: mucous membranes dry Neck exam: Present: normal inspection. Absent: tenderness, meningismus, lymphadenopathy Respiratory exam: Present: normal lung sounds bilaterally. Absent: respiratory distress, wheezes, rales, rhonchi, stridor Cardiovascular Exam: Present: regular rate, normal rhythm, normal heart sounds. Absent: systolic murmur, diastolic murmur, rubs, gallop, clicks GI/Abdominal exam: Present: soft, normal bowel sounds. Absent: distended, tenderness, guarding, rebound, rigid Extremities exam: Present: normal inspection, full ROM, normal capillary refill. Absent: tenderness, pedal edema, joint swelling, calf tenderness Back exam: Present: normal inspection Neurological exam: Present: alert, oriented X3, CN II-XII intact Psychiatric exam: Present: normal affect, normal mood Skin exam: Present: warm, dry, intact, normal color. Absent: rash Course Vital Signs 07/03/17 07/03/17 07/03/17 17:39 18:41 20:44 Temperature 97.0 F L Pulse Rate 71 72 70 Respiratory 18 18 18 Rate Blood Pressure 191/84 144/91 178/86 O2 Sat by Pulse 97 96 98 Oximetry Medical Decision Making - Medical Decision Making Reevaluation patient reveals no further symptoms she remains awake and alert at this time I did discuss findings with her and her daughter. Patient be admitted for evaluation of TIA. - Lab Data Result diagrams: 07/03/17 17:57 07/03/17 17:57 Lab Results 07/03/17 07/03/17 07/03/17 Range/Units 17:57 17:57 17:57 WBC 4.9 (3.8-10.6) k/uL RBC 3.97 (3.80-5.40) m/uL Hgb 11.6 (11.4-16.0) gm/dL Hct 34.8 (34.0-46.0) % MCV 87.6 (80.0-100.0) fL MCH 29.1 (25.0-35.0) pg MCHC 33.2 (31.0-37.0) g/dL RDW 13.2 (11.5-15.5) % Plt Count 167 (150-450) k/uL Neutrophils % (Manual) 59 % Lymphocytes % (Manual) 27 % Monocytes % (Manual) 13 % Eosinophils % (Manual) 1 % Neutrophils # (Manual) 2.89 (1.3-7.7) k/uL Lymphocytes # (Manual) 1.32 (1.0-4.8) k/uL Monocytes # (Manual) 0.64 (0-1.0) k/uL Eosinophils # (Manual) 0.05 (0-0.7) k/uL Nucleated RBCs 0 (0-0) /100 WBC Toxic Granulation Present Polychromasia Present PT (9.0-12.0) sec INR (<1.2) APTT (22.0-30.0) sec Sodium 136 L (137-145) mmol/L Potassium 5.0 (3.5-5.1) mmol/L Chloride 102 (98-107) mmol/L Carbon Dioxide 23 (22-30) mmol/L Anion Gap 11 mmol/L BUN 18 H (7-17) mg/dL Creatinine 0.90 (0.52-1.04) mg/dL Est GFR (MDRD) Af Amer >60 (>60 ml/min/1.73 sqM) Est GFR (MDRD) Non-Af 59 (>60 ml/min/1.73 sqM) Glucose 99 (74-99) mg/dL Calcium 9.4 (8.4-10.2) mg/dL Total Bilirubin 0.7 (0.2-1.3) mg/dL AST 25 (14-36) U/L ALT 31 (9-52) U/L Alkaline Phosphatase 95 (38-126) U/L Total Creatine Kinase 36 (30-135) U/L CK-MB (CK-2) 0.9 (0.0-2.4) ng/mL CK-MB (CK-2) Rel Index 2.5 Troponin I <0.012 (0.000-0.034) ng/mL Total Protein 6.6 (6.3-8.2) g/dL Albumin 4.1 (3.5-5.0) g/dL /08/11 Range/Units 17:57 WBC (3.8-10.6) k/uL RBC (3.80-5.40) m/uL Hgb (11.4-16.0) gm/dL Hct (34.0-46.0) % MCV (80.0-100.0) fL MCH (25.0-35.0) pg MCHC (31.0-37.0) g/dL RDW (11.5-15.5) % Plt Count (150-450) k/uL Neutrophils % (Manual) % Lymphocytes % (Manual) % Monocytes % (Manual) % Eosinophils % (Manual) % Neutrophils # (Manual) (1.3-7.7) k/uL Lymphocytes # (Manual) (1.0-4.8) k/uL Monocytes # (Manual) (0-1.0) k/uL Eosinophils # (Manual) (0-0.7) k/uL Nucleated RBCs (0-0) /100 WBC Toxic Granulation Polychromasia PT 11.5 (9.0-12.0) sec INR 1.1 (<1.2) APTT 28.4 (22.0-30.0) sec Sodium (137-145) mmol/L Potassium (3.5-5.1) mmol/L Chloride (98-107) mmol/L Carbon Dioxide (22-30) mmol/L Anion Gap mmol/L BUN (7-17) mg/dL Creatinine (0.52-1.04) mg/dL Est GFR (MDRD) Af Amer (>60 ml/min/1.73 sqM) Est GFR (MDRD) Non-Af (>60 ml/min/1.73 sqM) Glucose (74-99) mg/dL Calcium (8.4-10.2) mg/dL Total Bilirubin (0.2-1.3) mg/dL AST (14-36) U/L ALT (9-52) U/L Alkaline Phosphatase (38-126) U/L Total Creatine Kinase (30-135) U/L CK-MB (CK-2) (0.0-2.4) ng/mL CK-MB (CK-2) Rel Index Troponin I (0.000-0.034) ng/mL Total Protein (6.3-8.2) g/dL Albumin (3.5-5.0) g/dL - EKG Data -: EKG Interpreted by [facility] EKG shows normal: sinus rhythm (Sinus rhythm rate 73 MD interval 200 QRS duration 98 daily since QTC 404/445 and complete right bundle-branch block.) - Radiology Data Radiology results: report reviewed (I did review the imaging and reports no acute findings.), image reviewed Disposition Clinical Impression: Transient ischemic attack (TIA) Disposition: ADMITTED IP TO THIS [facility] Condition: Stable Referrals: Oscar Leigh MD [Primary Care Provider] - 1-2 days
[2017-07-03 18:21] LABS: ALT 31 U/L (9-52); AST 25 U/L (14-36); Alkaline Phosphatase 95 U/L (38-126); Anion Gap 11 mmol/L; Blood Urea Nitrogen 18 mg/dL (7-17); Calcium 9.4 mg/dL (8.4-10.2); Carbon Dioxide 23 mmol/L (22-30); Chloride 102 mmol/L (98-107); Glucose 99 mg/dL (74-99); Non-African American GFR(MDRD) 59 (>60 ml/min/1.73 sqM); Sodium 136 mmol/L (137-145); Total Bilirubin 0.7 mg/dL (0.2-1.3); Total Protein 6.6 g/dL (6.3-8.2)
[2017-07-03 18:25] LABS: INR 1.1 (<1.2); Partial Thromboplastin Time 28.4 sec (22.0-30.0); Prothrombin Time 11.5 sec (9.0-12.0)
[2017-07-03 18:28] LABS: Aty Lym Flag Slight; CH 27.8; CHCM 31.8; HCT 34.8 % (34.0-46.0); HDW 2.29; HGB 11.6 gm/dL (11.4-16.0); MCH 29.1 pg (25.0-35.0); MCHC 33.2 g/dL (31.0-37.0); MCV 87.6 fL (80.0-100.0); Mean Platelet Volume 7.4; RBC 3.97 m/uL (3.80-5.40); RDW 13.2 % (11.5-15.5); WBC 4.9 k/uL (3.8-10.6); WBC (Perox) 4.68
[2017-07-03 18:31] LABS: Creatine Kinase 36 U/L (30-135)
--- NOTE | 2017-07-03 18:42 | XR ---
EXAMINATION TYPE: XR chest 2V DATE OF EXAM: 07/03/2017 COMPARISON: Chest x-ray May 31, 2017. HISTORY: Altered mental status and slurred speech. TECHNIQUE: Frontal and lateral views of the chest are obtained. FINDINGS: There is new small right and tiny left pleural effusion with blunting of bilateral posteri or and right lateral costophrenic angles. No suspicious focal airspace opacity or pneumothorax is se en bilaterally. The cardiac silhouette size remains enlarged with dual lead pacemaker. The osseous st ructures are intact. IMPRESSION: Cardiomegaly with new small to tiny right greater than left pleural effusions noted.
--- NOTE | 2017-07-03 18:43 | CT ---
EXAMINATION TYPE: CT brain wo con DATE OF EXAM: 07/03/2017 HISTORY: Altered mental status CT DLP: 945.5 mGycm. Automated Exposure Control for Dose Reduction was Utilized. TECHNIQUE: CT scan of the head is performed without contrast. COMPARISON: CT brain May 10, 2017. FINDINGS: There is no acute intracranial hemorrhage or midline shift identified. There is diffuse v entricular and sulcal prominence consistent with diffuse age-related cerebral atrophy. There is low- attenuation in the periventricular white matter consistent with chronic small vessel ischemic change. Moderate vascular calcification of distal internal carotid arteries is felt present bilaterally. Ri ght globe redemonstrates cortical buckle. Visualized paranasal sinuses are clear. IMPRESSION: No acute intracranial hemorrhage or midline shift. There is mild to moderate diffuse ag e-related cerebral atrophy and chronic small vessel ischemic change redemonstrated without significan t change from prior study seen.
[2017-07-03 18:44] LABS: Creatine Kinase MB 0.9 ng/mL (0.0-2.4); Troponin I <0.012 ng/mL (0.000-0.034)
[2017-07-03 18:46] LABS: Add Differential Manual Differential
[2017-07-03 18:48] LABS: Nucleated Red Blood Cells 0 /100 WBC (0-0); Polychromasia Present; Total Cells Counted 100; Toxic Granulation Present
[2017-07-03] MEDS ORDERED: SODIUM CHLORIDE 0.9% 1,000 ML IV SCH (21:30)
[2017-07-03] MEDS ORDERED: NITROGLYCERIN SL TABS 0.4 MG TAB SUBLINGUAL PRN (21:31)
[2017-07-03 22:37] VITALS: RESP 18; BMI 25.2
[2017-07-04] MEDS ORDERED: LEVOTHYROXINE 75 MCG TAB PO SCH (06:30)
[2017-07-04 06:36] LABS: Aty Lym Flag Slight; CH 28.1; CHCM 31.7; HCT 36.5 % (34.0-46.0); HDW 2.22; HGB 11.6 gm/dL (11.4-16.0); MCH 28.4 pg (25.0-35.0); MCHC 31.9 g/dL (31.0-37.0); Mean Platelet Volume 6.9; RDW 13.3 % (11.5-15.5); WBC 4.5 k/uL (3.8-10.6); WBC (Perox) 4.49
[2017-07-04 06:41] LABS: Anion Gap 6 mmol/L; Blood Urea Nitrogen 13 mg/dL (7-17); Calcium 8.7 mg/dL (8.4-10.2); Carbon Dioxide 24 mmol/L (22-30); Chloride 104 mmol/L (98-107); Cholesterol 148 mg/dL (<200); Glucose 80 mg/dL (74-99); HDL Cholesterol 65 mg/dL (40-60); Non-African American GFR(MDRD) >60 (>60 ml/min/1.73 sqM); Potassium 4.1 mmol/L (3.5-5.1); Sodium 134 mmol/L (137-145)
[2017-07-04 06:49] LABS: Add Differential Manual Differential
[2017-07-04 06:51] LABS: Manual Review Performed; Nucleated Red Blood Cells 0 /100 WBC (0-0); Total Cells Counted 100
[2017-07-04] MEDS ORDERED: LOSARTAN 50 MG TAB PO SCH (09:00)
[2017-07-04] MEDS ORDERED: amLODIPine 5 MG TAB PO SCH (09:00)
[2017-07-04] MEDS ORDERED: FAMOTIDINE 20 MG TAB PO SCH (09:00)
[2017-07-04] MEDS ORDERED: APIXABAN 2.5 MG TABLET PO SCH (09:00)
[2017-07-04] MEDS ORDERED: ISOSORBIDE MONONITRATE ER 30 MG TAB.ER.24H PO SCH (09:00)
[2017-07-04] MEDS ORDERED: FLECAINIDE 50 MG TAB PO SCH (09:00)
[2017-07-04] MEDS ORDERED: METOPROLOL TARTRATE 12.5 MG TAB PO SCH (09:00)
[2017-07-04] MEDS ORDERED: PRAVASTATIN SODIUM 40 MG TAB PO SCH (09:00)
--- NOTE | 2017-07-04 09:50 | US ---
EXAMINATION TYPE: US carotid duplex BILAT DATE OF EXAM: 07/04/2017 COMPARISON: US 2013 CLINICAL HISTORY: Stenosis. Pt complains of episode of confusion EXAM MEASUREMENTS: RIGHT: Peak Systolic Velocity (PSV) cm/sec ----- Right CCA: 61.2 ----- Right ICA: 90.3 ----- Right ECA: 108.1 ICA/CCA ratio: 1.5 RIGHT: End Diastole cm/sec ----- Right CCA: 15.5 ----- Right ICA: 20.8 ----- Right ECA: 12.8 LEFT: Peak Systolic Velocity (PSV) cm/sec ----- Left CCA: 54.8 ----- Left ICA: 86.6 ----- Left ECA: 93.1 ICA/CCA ratio: 1.6 LEFT: End Diastole cm/sec ----- Left CCA: 14.2 ----- Left ICA: 12.8 ----- Left ECA: 5.0 VERTEBRALS (direction of flow): Right Vertebral: Antegrade Left Vertebral: Antegrade Calcified and soft plaque bilaterally seen at the carotid bulbs, atheromatous change present within t he common and internal carotid arteries. No significant stenosis seen. IMPRESSION: No hemodynamic significant stenosis of the proximal internal carotid arteries bilaterall y by Doppler criteria, and indirect measurement of carotid stenosis.
[2017-07-04 12:42] VITALS: BP 153/70; PULSE 64; TEMP 97.8
--- NOTE | 2017-07-04 16:45 | P.HPIM ---
History of Present Illness H&P Date: 07/04/17 (DC summary as well) 78-year-old female with a history of hypothyroidism with secondary pulmonary hypertension , sick sinus syndrome comes in to the hospital with this episode of patient not being able to remember herself was not able to speak for about 1 hour. Patient stated that her daughter was at the her bedside, who gave a good amount of the history. Patient states that she does not recall that she felt like she could not even remember who she was was not able to utter words that she was not able to remember any of her vocabulary at that time In the emergency room a computed tomography scan of the head was done which did not reveal any acute abnormalities Patient was recently in the hospital for sick sinus syndrome and underwent a permanent pacemaker placement Today patient states that she does not have any headaches, blurry vision, nausea vomiting chest pain difficulty breathing abdominal pain diarrhea urinary urgency or frequency Patient had an echocardiogram done and 06/09/2017 EF was 55-60% carotid study today did not reveal any abnormality At this time patient denies having any additional complaints. Review of Systems All systems: negative (Noted in HPI) Past Medical History Past Medical History: Atrial Fibrillation, GERD/Reflux, Hyperlipidemia, Hypertension, Osteoarthritis (OA), Syncope, Thyroid Disorder Additional Past Medical History / Comment(s): ARTHRITIS IN KNEES, LOW THYROID, OCC. CONSTIPATION, severe secondary pulmonary hypertension, moderate tricuspid regurgitation History of Any Multi-Drug Resistant Organisms: None Reported Past Surgical History: Cholecystectomy, Hernia Repair, Pacemaker, Tonsillectomy Additional Past Surgical History / Comment(s): LOOP RECORDER PLACED 05-14-17 Past Anesthesia/Blood Transfusion Reactions: No Reported Reaction Additional Past Anesthesia/Blood Transfusion Reaction / Comment(s): NEVER HAD BLOOD TRANSFUSION Type of Cardiac Device: Permanent Pacemaker Device Placement Date:: 05/31/17 Past Psychological History: No Psychological Hx Reported Additional Psychological History / Comment(s): PT LIVES ALONE IN A SINGLE LEVEL HOME. NO PETS. PT IS INDEPENDANT. NO OUTSIDE SERVICES RECIEVED. Smoking Status: Never smoker Past Alcohol Use History: None Reported Additional Past Alcohol Use History / Comment(s): Lives alone Past Drug Use History: None Reported - Past Family History Mother Family Medical History: Cancer Additional Family Medical History / Comment(s): LIVER CANCER Medications and Allergies Home Medications Medication Instructions Recorded Confirmed Type Famotidine [Pepcid] 40 mg PO DAILY 01/22/17 07/03/17 History Isosorbide Mononitrate ER [Imdur] 30 mg PO DAILY 01/22/17 07/03/17 History Levothyroxine Sodium [Synthroid] 75 mcg PO DAILY 01/22/17 07/03/17 History Pravastatin Sodium [Pravachol] 40 mg PO DAILY 01/22/17 07/03/17 History Jovanny/D3/Mag11/Zinc/Curb Setter/Kana/Bor 1 tab PO DAILY 05/10/17 07/03/17 History [Caltrate 600+D Plus Tablet] Losartan [Cozaar] 50 mg PO DAILY 05/10/17 07/03/17 History Multivitamins, Thera [Multivitamin 1 tab PO DAILY 05/10/17 07/03/17 History (formulary)] Apixaban [Eliquis] 2.5 mg PO BID 05/27/17 07/03/17 History Flecainide Acetate 50 mg PO BID 05/27/17 07/03/17 History Metoprolol Tartrate [Lopressor] 12.5 mg PO BID 05/27/17 07/03/17 History Nitroglycerin Sl Tabs [Nitrostat] 0.4 mg SUBLINGUAL Q5M PRN 05/27/17 07/03/17 History amLODIPine [Norvasc] 5 mg PO DAILY 05/27/17 07/03/17 History Cholecalciferol [Vitamin D3] 1,000 unit PO DAILY 07/03/17 07/03/17 History Allergies Allergy/AdvReac Type Severity Reaction Status Date / Time latex Allergy Unknown Itching Verified 07/03/17 19:31 Physical Exam Vitals: Vital Signs Temp Pulse Pulse Resp BP BP Pulse Ox 07/04/17 12:00 97.8 F 64 18 153/70 96 07/04/17 08:00 98 F 85 18 141/63 97 07/04/17 04:00 74 18 07/04/17 03:59 97.6 F 74 18 156/72 96 07/04/17 00:00 97.3 F L 62 18 163/75 100 07/03/17 22:00 97.3 F L 73 18 190/83 98 07/03/17 21:45 87 20 184/86 98 07/03/17 20:44 70 18 178/86 98 07/03/17 18:41 72 18 144/91 96 07/03/17 17:39 97.0 F L 71 18 191/84 97 Intake and Output 07/04/17 07/04/17 07/04/17 06:59 14:59 22:59 Intake Total 0 Output Total 350 Balance -350 Intake: Oral 0 Output: Urine 350 Other: # Voids 1 Weight 62.1 kg Physical exam Gen. appearance oriented 3 in no distress Neck is supple no JVD Lungs good air entry clear to auscultation no rhonchi or wheezing Heart S1-S2 heard regular rate and rhythm no murmurs appreciated Abdomen is soft nontender no organomegaly bowel sounds are intact Neurologically cranial nerves II-12 grossly intact no focal motor or sensory deficits noted no dysdiadochokinesia noted patient is able to repeat 3 words after 5 minutes. No aphasia is appreciated. Skin no abnormalities appreciated Results CBC & Chem 7: 07/04/17 05:41 07/04/17 05:41 Labs: Abnormal Lab Results - Last 24 Hours (Table) 07/03/17 07/04/17 Range/Units 17:57 05:41 Sodium 136 L 134 L (137-145) mmol/L BUN 18 H (7-17) mg/dL HDL Cholesterol 65 H (40-60) mg/dL Thrombosis Risk Factor Assmnt - Choose All That Apply Any of the Below Risk Factors Present?: Yes Each Factor Represents 1 point: Swollen legs (current) Other Risk Factors: Yes Each Risk Factor Represents 3 Points: Age 75 years or older Thrombosis Risk Factor Assessment Total Risk Factor Score: 4 Thrombosis Risk Factor Assessment Level: Moderate Risk Assessment and Plan Plan: #1 acute global amnesia #2 history of pulmonary hypertension #36 sinus syndrome status post pacemaker placement #4 hypothyroidism for #5 dyslipidemia #6 moderate tricuspid regurgitation #7 essential hypertension Plan Patient was monitored however with global amnesia patient can be discharged home without any further workup patient recently had an echocardiogram carotid was done this is not treated as a pre-stroke or TIA. This was discussed with the patient and the family discharged home in stable condition.
== END 2017-07-04 17:24 | disposition home or self-care (01) | DRG 72 ==
LOC: EC 17:36 → 6SEL 21:30
PROVIDERS: ADMIT Internal Medicine; ATTEND Internal Medicine
DX: G45.4 Transient global amnesia (principal); I27.2 Other secondary pulmonary hypertension; I49.5 Sick sinus syndrome; E03.9 Hypothyroidism, unspecified; I10 Essential (primary) hypertension; I36.1 Nonrheumatic tricuspid (valve) insufficiency; I45.10 Unspecified right bundle-branch block; R29.700 NIHSS score 0; K59.00 Constipation, unspecified; M17.0 Bilateral primary osteoarthritis of knee; I48.91 Unspecified atrial fibrillation; K21.9 Gastro-esophageal reflux disease without esophagitis; E78.5 Hyperlipidemia, unspecified; Z95.0 Presence of cardiac pacemaker; Z79.899 Other long term (current) drug therapy; Z80.0 Family history of malignant neoplasm of digestive organs; Z79.01 Long term (current) use of anticoagulants; Z91.040 Latex allergy status; Z86.79 Personal history of other diseases of the circulatory system; Z90.49 Acquired absence of other specified parts of digestive tract
CPT/HCPCS: 36415; 70450; 71020; 80048; 80053; 80061; 82550; 82553; 84484; 85025; 85610; 85730; 93005; 93880; 96360; 96361; 99285

== ENCOUNTER 2017-07-17 23:21 | Inpatient (IN) | payer MEDICARE, BC ==
[2017-07-17] MEDS ORDERED: RX INFO: IV CONTRAST WAS GIVEN 1 EACH MISC MISCELLANE PRN (23:39)
[2017-07-17] MEDS ORDERED: ONDANSETRON 4 MG/2 ML VIAL IVP STA (23:39)
[2017-07-17] MEDS ORDERED: SODIUM CHLORIDE 0.9% 500 ML IV STA (23:39)
[2017-07-17] MEDS ORDERED: MORPHINE SULFATE 2 MG/ML SYRINGE IVP STA (23:39)
--- NOTE | 2017-07-17 23:43 | ED ---
Abdominal Pain HPI - General Chief Complaint: Abdominal Pain Stated Complaint: rt side pain Time Seen by Provider: 07/17/17 23:33 Source: patient Mode of arrival: ambulatory Limitations: no limitations - History of Present Illness Initial Comments: 86-year-old female patient presented to emergency department today for evaluation of right lower quadrant abdominal pain. Patient states that this pain started this morning however worsened in the afternoon. Patient describes the pain as a sharp stabbing pain, but denies radiation to her back. Denies any constipation or diarrhea. Denies any dark, bloody, or black stools. Denies any hematuria, dysuria, urinary frequency or urinary urgency. Denies any fever, chills, chest pain, shortness of breath, dizziness, or weakness. States that she has had an appendectomy, cholecystectomy, and 2 hernia repairs in the past. States that she has been told in the past that she has diverticulosis. Denies any history of similar pain. - Related Data Home Medications Medication Instructions Recorded Confirmed Famotidine [Pepcid] 40 mg PO DAILY 01/22/17 07/03/17 Isosorbide Mononitrate ER [Imdur] 30 mg PO DAILY 01/22/17 07/03/17 Levothyroxine Sodium [Synthroid] 75 mcg PO DAILY 01/22/17 07/03/17 Pravastatin Sodium [Pravachol] 40 mg PO DAILY 01/22/17 07/03/17 Jovanny/D3/Mag11/Zinc/[employer] Supervisor/Kana/Bor 1 tab PO DAILY 05/10/17 07/03/17 [Caltrate 600+D Plus Tablet] Losartan [Cozaar] 50 mg PO DAILY 05/10/17 07/03/17 Multivitamins, Thera [Multivitamin 1 tab PO DAILY 05/10/17 07/03/17 (formulary)] Apixaban [Eliquis] 2.5 mg PO BID 05/27/17 07/03/17 Flecainide Acetate 50 mg PO BID 05/27/17 07/03/17 Metoprolol Tartrate [Lopressor] 12.5 mg PO BID 05/27/17 07/03/17 Nitroglycerin Sl Tabs [Nitrostat] 0.4 mg SUBLINGUAL Q5M PRN 05/27/17 07/03/17 amLODIPine [Norvasc] 5 mg PO DAILY 05/27/17 07/03/17 Cholecalciferol [Vitamin D3] 1,000 unit PO DAILY 07/03/17 07/03/17 Allergies Allergy/AdvReac Type Severity Reaction Status Date / Time latex Allergy Unknown Itching Verified 07/17/17 23:29 Review of Systems ROS Statement: Those systems with pertinent positive or pertinent negative responses have been documented in the HPI. ROS Other: All systems not noted in ROS Statement are negative. Past Medical History Past Medical History: Atrial Fibrillation, GERD/Reflux, Hyperlipidemia, Hypertension, Osteoarthritis (OA), Syncope, Thyroid Disorder Additional Past Medical History / Comment(s): ARTHRITIS IN KNEES, LOW THYROID, OCC. CONSTIPATION, severe secondary pulmonary hypertension, moderate tricuspid regurgitation History of Any Multi-Drug Resistant Organisms: None Reported Past Surgical History: Cholecystectomy, Hernia Repair, Pacemaker, Tonsillectomy Additional Past Surgical History / Comment(s): LOOP RECORDER PLACED 05-14-17 Past Anesthesia/Blood Transfusion Reactions: No Reported Reaction Additional Past Anesthesia/Blood Transfusion Reaction / Comment(s): NEVER HAD BLOOD TRANSFUSION Type of Cardiac Device: Permanent Pacemaker Device Placement Date:: 05/31/17 Past Psychological History: No Psychological Hx Reported Smoking Status: Never smoker Past Alcohol Use History: None Reported Past Drug Use History: None Reported - Past Family History Mother Family Medical History: Cancer Additional Family Medical History / Comment(s): LIVER CANCER General Exam Limitations: no limitations General appearance: alert, in no apparent distress Head exam: Present: atraumatic, normocephalic, normal inspection Eye exam: Present: normal appearance, PERRL, EOMI. Absent: scleral icterus, conjunctival injection, periorbital swelling ENT exam: Present: normal exam, mucous membranes moist Neck exam: Present: normal inspection. Absent: tenderness, meningismus, lymphadenopathy Respiratory exam: Present: normal lung sounds bilaterally. Absent: respiratory distress, wheezes, rales, rhonchi, stridor Cardiovascular Exam: Present: regular rate, normal rhythm, normal heart sounds. Absent: systolic murmur, diastolic murmur, rubs, gallop, clicks GI/Abdominal exam: Present: soft, tenderness (Right lower quadrant tenderness), normal bowel sounds, hyperactive bowel sounds. Absent: distended, guarding, rebound, rigid Extremities exam: Present: normal inspection, full ROM, normal capillary refill. Absent: tenderness, pedal edema, joint swelling, calf tenderness Back exam: Present: normal inspection. Absent: CVA tenderness (R), CVA tenderness (L) Neurological exam: Present: alert, oriented X3, CN II-XII intact Psychiatric exam: Present: normal affect, normal mood Skin exam: Present: warm, dry, intact, normal color. Absent: rash Course Vital Signs 07/17/17 07/18/17 07/18/17 23:25 03:05 03:47 Temperature 97.0 F L 97.3 F L 97.4 F L Pulse Rate 81 72 63 Respiratory 20 16 16 Rate Blood Pressure 196/93 167/82 167/79 O2 Sat by Pulse 97 96 97 Oximetry - Reevaluation(s) Reevaluation #1: 07/18/17 02:41 In to reevaluate patient. Patient symptoms are improved with pain medication. CT results are back. Did discuss results with the patient and discussed with the surgeon with her. Patient states that she has used Dr. Merida in the past and would like to have him again. Dr. Robins my attending will be phoning [facility] to discuss CT findings. Medical Decision Making - Medical Decision Making 78-year-old female patient presented to emergency department today for complaints of right lower quadrant abdominal pain times one day. Labs were reviewed and did show a decreased sodium level at 127. CT of the abdomen and pelvis was obtained and did show a right inguinal hernia containing cecum and includes part of the terminal ileum. Says it may be a low-grade small bowel obstruction as there is some mild distended air-fluid levels in the small bowel. Small free fluid in the hernia sac cannot exclude incarceration. CT also showed an 8.7 mm cystic structure in the body of the pancreas. My attending Dr. Robins did speak to Dr. Rousseau on all call for [facility] would like patient admitted to medicine and to be on consult. Patient will be admitted, she'll be placed nothing by mouth, normal saline will be started at 75 mL per hour, and Dr. Rousseau will be placed on consult. Patient has had hernia repairs by [facility] the past. Patient had no nausea or vomiting throughout stay therefore will not be given an NG tube. Pain medication and nausea medication will be ordered however as needed. Eliquis will be held. - Lab Data Result diagrams: 07/18/17 00:10 07/18/17 00:10 Lab Results 07/18/17 07/18/17 07/18/17 Range/Units 00:10 00:10 00:10 WBC 6.3 (3.8-10.6) k/uL RBC 4.13 (3.80-5.40) m/uL Hgb 11.8 (11.4-16.0) gm/dL Hct 36.4 (34.0-46.0) % MCV 88.0 (80.0-100.0) fL MCH 28.5 (25.0-35.0) pg MCHC 32.4 (31.0-37.0) g/dL RDW 14.0 (11.5-15.5) % Plt Count 159 (150-450) k/uL Neutrophils % 79 % Lymphocytes % 12 % Monocytes % 6 % Eosinophils % 0 % Basophils % 1 % Neutrophils # 4.9 (1.3-7.7) k/uL Lymphocytes # 0.8 L (1.0-4.8) k/uL Monocytes # 0.4 (0-1.0) k/uL Eosinophils # 0.0 (0-0.7) k/uL Basophils # 0.0 (0-0.2) k/uL PT (9.0-12.0) sec INR (<1.2) APTT (22.0-30.0) sec Sodium 127 L (137-145) mmol/L Potassium 4.3 (3.5-5.1) mmol/L Chloride 96 L (98-107) mmol/L Carbon Dioxide 22 (22-30) mmol/L Anion Gap 9 mmol/L BUN 16 (7-17) mg/dL Creatinine 0.70 (0.52-1.04) mg/dL Est GFR (MDRD) Af Amer >60 (>60 ml/min/1.73 sqM) Est GFR (MDRD) Non-Af >60 (>60 ml/min/1.73 sqM) Glucose 138 H (74-99) mg/dL Plasma Lactic Acid Prashanth 0.9 (0.7-2.0) mmol/L Calcium 9.1 (8.4-10.2) mg/dL Total Bilirubin 0.8 (0.2-1.3) mg/dL AST 26 (14-36) U/L ALT 29 (9-52) U/L Alkaline Phosphatase 98 (38-126) U/L Total Creatine Kinase (30-135) U/L CK-MB (CK-2) (0.0-2.4) ng/mL CK-MB (CK-2) Rel Index Troponin I (0.000-0.034) ng/mL Total Protein 6.4 (6.3-8.2) g/dL Albumin 4.0 (3.5-5.0) g/dL Amylase 35 (30-110) U/L Lipase 87 (23-300) U/L Urine Color Urine Appearance (Clear) Urine pH (5.0-8.0) Ur Specific [place] (1.001-1.035) Urine Protein (Negative) Urine Glucose (UA) (Negative) Urine Ketones (Negative) Urine Blood (Negative) Urine Nitrite (Negative) Urine Bilirubin (Negative) Urine Urobilinogen (<2.0) mg/dL Ur Leukocyte Esterase (Negative) 07/18/17 07/18/17 07/18/17 Range/Units 00:10 00:10 00:41 WBC (3.8-10.6) k/uL RBC (3.80-5.40) m/uL Hgb (11.4-16.0) gm/dL Hct (34.0-46.0) % MCV (80.0-100.0) fL MCH (25.0-35.0) pg MCHC (31.0-37.0) g/dL RDW (11.5-15.5) % Plt Count (150-450) k/uL Neutrophils % % Lymphocytes % % Monocytes % % Eosinophils % % Basophils % % Neutrophils # (1.3-7.7) k/uL Lymphocytes # (1.0-4.8) k/uL Monocytes # (0-1.0) k/uL Eosinophils # (0-0.7) k/uL Basophils # (0-0.2) k/uL PT 11.7 (9.0-12.0) sec INR 1.2 H (<1.2) APTT 28.2 (22.0-30.0) sec Sodium (137-145) mmol/L Potassium (3.5-5.1) mmol/L Chloride (98-107) mmol/L Carbon Dioxide (22-30) mmol/L Anion Gap mmol/L BUN (7-17) mg/dL Creatinine (0.52-1.04) mg/dL Est GFR (MDRD) Af Amer (>60 ml/min/1.73 sqM) Est GFR (MDRD) Non-Af (>60 ml/min/1.73 sqM) Glucose (74-99) mg/dL Plasma Lactic Acid Prashanth (0.7-2.0) mmol/L Calcium (8.4-10.2) mg/dL Total Bilirubin (0.2-1.3) mg/dL AST (14-36) U/L ALT (9-52) U/L Alkaline Phosphatase (38-126) U/L Total Creatine Kinase 30 (30-135) U/L CK-MB (CK-2) 0.7 (0.0-2.4) ng/mL CK-MB (CK-2) Rel Index 2.3 Troponin I <0.012 (0.000-0.034) ng/mL Total Protein (6.3-8.2) g/dL Albumin (3.5-5.0) g/dL Amylase (30-110) U/L Lipase (23-300) U/L Urine Color Light Yellow Urine Appearance Clear (Clear) Urine pH 7.5 (5.0-8.0) Ur Specific [place] 1.007 (1.001-1.035) Urine Protein Negative (Negative) Urine Glucose (UA) Negative (Negative) Urine Ketones Trace H (Negative) Urine Blood Negative (Negative) Urine Nitrite Negative (Negative) Urine Bilirubin Negative (Negative) Urine Urobilinogen <2.0 (<2.0) mg/dL Ur Leukocyte Esterase Negative (Negative) 07/18/17 00:12 EKG obtained hats 2358 shows normal sinus rhythm with a first-degree AV block. Ventricular rate 70, OK interval 224, QRS duration 112, QTC 4:30, QTC 464. No evidence of ST elevation or depression. - Radiology Data Radiology results: report reviewed, image reviewed CT of the abdomen and pelvis impression by Dr. Samreen Cooley shows a right inguinal hernia containing cecum and includes part of the terminal ileum. This may be resulting in low grade small bowel obstruction as there are some mild distended air-fluid levels in the small bowel. Small free fluid in the hernia sac, cannot exclude incarceration. Tiny bilateral pleural effusions. Cholecystectomy. Prominent common bile duct likely sacral of cholecystectomy. 8.7 mm cystic structure in the body of the pancreas. Tiny nonobstructive left renal stone. Colonic diverticulosis without acute diverticulitis. Disposition Clinical Impression: Right inguinal hernia, Small bowel obstruction Disposition: [facility]MITTED IP TO [facility] Condition: Fair Decision to Admit Reason: Admit from EC Decision Date: 07/18/17 Decision Time: 03:27
[2017-07-18 00:33] LABS: Basophils % (A) 1 %; CH 29.1; CHCM 33.2; Eosinophils % (A) 0 %; HCT 36.4 % (34.0-46.0); HDW 2.26; HGB 11.8 gm/dL (11.4-16.0); Luc # (Auto) 0.16; Luc % (Auto) 3; Lymphocytes # (A) 0.8 k/uL (1.0-4.8); Lymphocytes % (A) 12 %; MCH 28.5 pg (25.0-35.0); MCHC 32.4 g/dL (31.0-37.0); Mean Platelet Volume 7.7; Monocytes # (A) 0.4 k/uL (0-1.0); Monocytes % (A) 6 %; Neutrophils # (A) 4.9 k/uL (1.3-7.7); Neutrophils % (A) 79 %; RBC 4.13 m/uL (3.80-5.40); WBC 6.3 k/uL (3.8-10.6); WBC (Perox) 6.05
[2017-07-18 00:45] LABS: ALT 29 U/L (9-52); AST 26 U/L (14-36); Alkaline Phosphatase 98 U/L (38-126); Amylase 35 U/L (30-110); Anion Gap 9 mmol/L; Blood Urea Nitrogen 16 mg/dL (7-17); Calcium 9.1 mg/dL (8.4-10.2); Carbon Dioxide 22 mmol/L (22-30); Chloride 96 mmol/L (98-107); Glucose 138 mg/dL (74-99); Non-African American GFR(MDRD) >60 (>60 ml/min/1.73 sqM); Potassium 4.3 mmol/L (3.5-5.1); Sodium 127 mmol/L (137-145); Total Bilirubin 0.8 mg/dL (0.2-1.3); Total Protein 6.4 g/dL (6.3-8.2)
[2017-07-18 01:08] LABS: Appearance,Urine Clear (Clear); Bilirubin,Urine Negative (Negative); Glucose,Urine (UA) Negative (Negative); Ketones,Urine Trace (Negative); Leukocyte Esterase,Urine Negative (Negative); Nitrite,Urine Negative (Negative); PH, Urine 7.5 (5.0-8.0); Protein,Urine Negative (Negative); Specific Gravity,Urine 1.007 (1.001-1.035); UA Billing (MACRO vs. MICRO) CHEM; Urobilinogen,Urine <2.0 mg/dL (<2.0)
--- NOTE | 2017-07-18 02:06 | CT ---
EXAM: CT Abdomen and Pelvis With Intravenous Contrast CLINICAL HISTORY: RLQ pain today, hx: appendectomy, cholecystectomy, hernia repair. [id number]/100ml, TECHNIQUE: Axial computed tomography images of the abdomen and pelvis with intravenous contrast. CTDI is 6.7 mGy and DLP is 450.3 mGy-cm. This CT exam was performed using one or more of the following dose reduction techniques: automated exposure control, adjustment of the mA and/or kV according to patient size, and/or use of iterative reconstruction technique. Coronal and sagittal reformatted images were created and reviewed. COMPARISON: CT abdomen and pelvis 03/27/16 FINDINGS: Lower thorax: Tiny bilateral pleural effusions. Cardiomegaly. Pacemaker. Mild bibasilar lung atelectasis. ABDOMEN: Liver: Clustered calcifications in the dome of the right lobe of the liver. Gallbladder and bile ducts: Cholecystectomy. Prominent CBD likely sequela of cholecystectomy. Pancreas: 8.7 mm cystic structure in the body the pancreas. No ductal dilation. Spleen: Unremarkable. No splenomegaly. Adrenals: Unremarkable. No mass. Kidneys and ureters: Tiny nonobstructive left renal stone. Tiny low- density lesion right kidney. Stomach and bowel: Right inguinal hernia containing cecum and includes part of the terminal ileum. This may be resulting any low-grade SBO as there are some mild distended air-fluid levels in the small bowel. Small free fluid in the hernia sac, cannot exclude incarceration. Colonic diverticulosis without acute diverticulitis. Appendix: No findings to suggest acute appendicitis. PELVIS: Bladder: Unremarkable. No mass. Reproductive: Uterus is present. ABDOMEN and PELVIS: Intraperitoneal space: Bones/joints: Degenerative changes spine. Grade 1 anterolisthesis of L4 on L5 and L5 on S1. No acute fracture. No dislocation. Soft tissues: Unremarkable. Vasculature: Atherosclerotic vascular disease. No abdominal aortic aneurysm. Lymph nodes: Unremarkable. No enlarged lymph nodes. IMPRESSION: 1. Right inguinal hernia containing cecum and includes part of the terminal ileum. This may be resulting any low-grade SBO as there are some mild distended air-fluid levels in the small bowel. Small free fluid in the hernia sac, cannot exclude incarceration. 2. Tiny bilateral pleural effusions. 3. Cholecystectomy. Prominent CBD likely sequela of cholecystectomy. 4. 8.7 mm cystic structure in the body the pancreas. 5. Tiny nonobstructive left renal stone. 6. Colonic diverticulosis without acute diverticulitis. [employer] 07/18/17 02:13 Verify Receipt Verified receipt with MARIPOSA ROSSI in the ER @ 0025 for SARAH Shelby
[2017-07-18] MEDS ORDERED: NALOXONE 0.4 MG/ML 1 ML VIAL IV PRN (03:02)
[2017-07-18] MEDS ORDERED: ONDANSETRON 4 MG/2 ML VIAL IVP PRN (03:20)
[2017-07-18] MEDS ORDERED: SODIUM CHLORIDE 0.9% 1,000 ML IV SCH (03:30)
[2017-07-18 03:43] LABS: Partial Thromboplastin Time 28.2 sec (22.0-30.0)
[2017-07-18 03:46] LABS: INR 1.2 (<1.2); Prothrombin Time 11.7 sec (9.0-12.0)
[2017-07-18 03:51] LABS: Creatine Kinase 30 U/L (30-135)
[2017-07-18 04:02] LABS: Creatine Kinase MB 0.7 ng/mL (0.0-2.4); Troponin I <0.012 ng/mL (0.000-0.034)
[2017-07-18 05:33] VITALS: BMI 26.6
[2017-07-18] MEDS ORDERED: hydrALAZINE HCL 20 MG/ML 1 ML VIAL IVP STA (06:23)
[2017-07-18] MEDS: SODIUM CHLORIDE 0.9% 1,000 ML IV SCH ×2 (08:11→19:24)
[2017-07-18] MEDS ORDERED: NITROGLYCERIN SL TABS 0.4 MG TAB SUBLINGUAL PRN (08:19)
[2017-07-18] MEDS ORDERED: ENOXAPARIN 40 MG/0.4 ML SYRINGE SQ SCH (09:00)
[2017-07-18] MEDS ORDERED: RX INFO: IV CONTRAST WAS GIVEN 1 EACH MISC MISCELLANE PRN (09:30)
[2017-07-18] MEDS: amLODIPine 5 MG TAB PO SCH (11:06)
[2017-07-18] MEDS: LEVOTHYROXINE 75 MCG TAB PO SCH (11:08)
[2017-07-18] MEDS: LOSARTAN 50 MG TAB PO SCH (11:08)
[2017-07-18] MEDS: FLECAINIDE 50 MG TAB PO SCH ×2 (11:08→21:09)
[2017-07-18] MEDS: METOPROLOL TARTRATE 12.5 MG TAB PO SCH ×2 (11:08→21:09)
[2017-07-18] MEDS: ISOSORBIDE MONONITRATE ER 30 MG TAB.ER.24H PO SCH (11:08)
--- NOTE | 2017-07-18 11:18 | P.CRDCN ---
History of Present Illness Consult date: 07/18/17 History of present illness: This is a 86-year-old female with history of hypertension, diabetes mellitus and also paroxysmal/persistent atrial fibrillation and also status post permanent pacemaker implantation, comes to the hospital with complaints of abdominal pain. She was noted to have incarcerated hernia and apparently felt that she needed surgical treatment. We're asked to see the patient for cardiac clearance. Since the pacemaker implantation. Patient has been doing well without any dizziness or syncopal episodes. It appears that patient has been maintaining sinus rhythm. Denies any chest pain, shortness of breath, dizziness or syncope. I do not see any absolute contraindication for proposed surgery. However, her risk for surgery is more than average given her age and multiple comorbidities. Review of Systems As per HPI Past Medical History Past Medical History: Atrial Fibrillation, GERD/Reflux, Hyperlipidemia, Hypertension, Osteoarthritis (OA), Syncope, Thyroid Disorder Additional Past Medical History / Comment(s): ARTHRITIS IN KNEES, LOW THYROID, OCC. CONSTIPATION, severe secondary pulmonary hypertension, moderate tricuspid regurgitation History of Any Multi-Drug Resistant Organisms: None Reported Past Surgical History: Cholecystectomy, Hernia Repair, Pacemaker, Tonsillectomy Additional Past Surgical History / Comment(s): LOOP RECORDER PLACED 05-14-17 Past Anesthesia/Blood Transfusion Reactions: No Reported Reaction Additional Past Anesthesia/Blood Transfusion Reaction / Comment(s): NEVER HAD BLOOD TRANSFUSION Type of Cardiac Device: Permanent Pacemaker Device Placement Date:: 05/31/17 Past Psychological History: No Psychological Hx Reported Smoking Status: Never smoker Past Alcohol Use History: None Reported Past Drug Use History: None Reported - Past Family History Mother Family Medical History: Cancer Additional Family Medical History / Comment(s): LIVER CANCER Medications and Allergies Home Medications Medication Instructions Recorded Confirmed Type Famotidine [Pepcid] 40 mg PO HS 01/22/17 07/18/17 History Isosorbide Mononitrate ER [Imdur] 30 mg PO DAILY 01/22/17 07/18/17 History Levothyroxine Sodium [Synthroid] 75 mcg PO DAILY 01/22/17 07/18/17 History Pravastatin Sodium [Pravachol] 40 mg PO DAILY 01/22/17 07/18/17 History Jovanny/D3/Mag11/Zinc/[employer] Supervisor/Kana/Bor 1 tab PO DAILY 05/10/17 07/18/17 History [Caltrate 600+D Plus Tablet] Losartan [Cozaar] 50 mg PO DAILY 05/10/17 07/18/17 History Multivitamins, Thera [Multivitamin 1 tab PO DAILY 05/10/17 07/18/17 History (formulary)] Apixaban [Eliquis] 2.5 mg PO BID 05/27/17 07/18/17 History Flecainide Acetate 50 mg PO BID 05/27/17 07/18/17 History Metoprolol Tartrate [Lopressor] 12.5 mg PO BID 05/27/17 07/18/17 History Nitroglycerin Sl Tabs [Nitrostat] 0.4 mg SUBLINGUAL Q5M PRN 05/27/17 07/18/17 History amLODIPine [Norvasc] 5 mg PO DAILY 05/27/17 07/18/17 History Cholecalciferol [Vitamin D3] 1,000 unit PO DAILY 07/03/17 07/18/17 History Allergies Allergy/AdvReac Type Severity Reaction Status Date / Time latex Allergy Unknown Itching Verified 07/18/17 07:50 Physical Exam Vitals: Vital Signs Temp Pulse Pulse Resp BP BP Pulse Ox 07/18/17 07:00 97.5 F L 66 14 167/81 07/18/17 06:21 65 14 145/70 95 07/18/17 05:15 97.7 F 72 14 177/84 93 L 07/18/17 03:47 97.4 F L 63 16 167/79 97 07/18/17 03:05 97.3 F L 72 16 167/82 96 07/17/17 23:25 97.0 F L 81 20 196/93 97 Intake and Output 07/17/17 07/18/17 07/18/17 22:59 06:59 14:59 Intake Total 20 Balance 20 Intake: IV 20 Sodium Chloride 0.9% 1, 20 000 ml @ 20 mls/hr IV . Q24H [facility] Rx#:[id number] Other: # Voids 1 1 Weight 66.22 kg GENERAL EXAM: Patient is alert and oriented and doesn't appear to be in any acute distress HEENT: Normocephalic. Normal reaction of pupils, equal size, normal range of extraocular motion. No erythema or exudates in the throat. NECK: No masses, no nuchal rigidity. CHEST: No chest wall deformity. LUNGS: Equal air entry with no crackles or wheeze. HEART: S1 and S2 normal with no audible mumurs or gallops. Regular rhythm, femorals equal on both sides.. ABDOMEN: No hepatosplenomegaly, normal bowel sounds, no guarding or rigidity. SKIN: No rashes CENTRAL NERVOUS SYSTEM: No focal deficits. EXTREMITIES: No cyanosis, clubbing or edema. Results 07/18/17 00:10 07/18/17 00:10 Cardiac Enzymes 07/18/17 07/18/17 Range/Units 00:10 00:10 AST 26 (14-36) U/L CK-MB (CK-2) 0.7 (0.0-2.4) ng/mL Troponin I <0.012 (0.000-0.034) ng/mL Coagulation 07/18/17 Range/Units 00:10 PT 11.7 (9.0-12.0) sec APTT 28.2 (22.0-30.0) sec CBC 07/18/17 Range/Units 00:10 WBC 6.3 (3.8-10.6) k/uL RBC 4.13 (3.80-5.40) m/uL Hgb 11.8 (11.4-16.0) gm/dL Hct 36.4 (34.0-46.0) % Plt Count 159 (150-450) k/uL Comprehensive Metabolic Panel 07/18/17 Range/Units 00:10 Sodium 127 L (137-145) mmol/L Potassium 4.3 (3.5-5.1) mmol/L Chloride 96 L (98-107) mmol/L Carbon Dioxide 22 (22-30) mmol/L BUN 16 (7-17) mg/dL Creatinine 0.70 (0.52-1.04) mg/dL Glucose 138 H (74-99) mg/dL Calcium 9.1 (8.4-10.2) mg/dL AST 26 (14-36) U/L ALT 29 (9-52) U/L Alkaline Phosphatase 98 (38-126) U/L Total Protein 6.4 (6.3-8.2) g/dL Albumin 4.0 (3.5-5.0) g/dL Current Medications Generic Name Dose Route Start Last Admin Trade Name Freq PRN Reason Stop Dose Admin Amlodipine Besylate 5 mg 07/18/17 09:00 07/18/17 11:06 Norvasc PO 5 mg DAILY [facility] Administration Cholecalciferol 1,000 unit 07/18/17 12:00 Vitamin D3 PO DAILY@1200 [facility] Enoxaparin Sodium 40 mg 07/18/17 09:00 07/18/17 11:06 Lovenox SQ 40 mg DAILY [facility] Administration Famotidine 40 mg 07/18/17 21:00 Pepcid PO HS [facility] Flecainide Acetate 50 mg 07/18/17 09:00 07/18/17 11:08 Tambocor PO 50 mg BID [facility] Administration Sodium Chloride 1,000 mls @ 75 mls/hr 07/18/17 05:00 07/18/17 08:11 Saline 0.9% IV 75 mls/hr .[id number] [facility] Administration Isosorbide Mononitrate 30 mg 07/18/17 09:00 07/18/17 11:08 Imdur PO 30 mg DAILY [facility] Administration Levothyroxine Sodium 75 mcg 07/18/17 09:00 07/18/17 11:08 Synthroid PO 75 mcg DAILY@0630 [facility] Administration Losartan Potassium 50 mg 07/18/17 09:00 07/18/17 11:08 Cozaar PO 50 mg DAILY [facility] Administration Metoprolol Tartrate 12.5 mg 07/18/17 09:00 07/18/17 11:08 Lopressor PO 12.5 mg BID [facility] Administration Miscellaneous Information 1 each 07/17/17 23:39 Rx Info: Iv Contrast Was Given MISCELLANE 07/19/17 23:40 DAILY PRN Per Protocol Miscellaneous Information 1 each 07/18/17 09:30 Rx Info: Iv Contrast Was Given MISCELLANE 07/20/17 09:32 DAILY PRN Per Protocol Morphine Sulfate 2 mg 07/18/17 03:20 Morphine Sulfate (Inj) IV Q4HR PRN Severe Pain Multivitamins 1 each 07/18/17 12:00 Theragran PO DAILY@1200 [facility] Naloxone HCl 0.2 mg 07/18/17 03:02 Narcan IV Q2M PRN Opioid Reversal Nitroglycerin 0.4 mg 07/18/17 08:19 Nitrostat SUBLINGUAL Q5M PRN Chest Pain Ondansetron HCl 4 mg 07/18/17 03:20 Zofran IVP Q8HR PRN Nausea And Vomiting Pravastatin Sodium 40 mg 07/18/17 21:00 Pravachol PO HS [facility] Intake and Output 07/17/17 07/18/17 07/18/17 22:59 06:59 14:59 Intake Total 20 Balance 20 Intake: IV 20 Sodium Chloride 0.9% 1, 20 000 ml @ 20 mls/hr IV . Q24H [facility] Rx#:[id number] Other: # Voids 1 1 Weight 66.22 kg 07/18/17 00:10 07/18/17 00:10 EKG Interpretations (text) Sinus rhythm Assessment and Plan (1) Small bowel obstruction Status: Acute (2) Atrial fibrillation Status: Acute (3) Pacemaker Status: Acute Plan: I do not see any absolute contraindication for the proposed surgery. Patient should continue on current medical therapy including flecainide. Further recommendation depending upon the clinical course.
--- NOTE | 2017-07-18 11:29 | P.GSCN ---
History of Present Illness Consult date: 07/18/17 Reason for Consult: Abdominal pain History of present illness: 86-year-old female presented to the emergency room to be evaluated for chief complaint of developing right lower quadrant abdominal discomfort. Patient stated the pain occurred in the morning it became more symptomatic described it as a sharp stabbing pain radiating into the back. Patient denied any change in bowel habits. Patient states that she was in her usual state of health up until the day of the event when she states around noon yesterday she developed a dull achy feeling in the right lower quadrant by 4:00 in the afternoon could not stand up the pain was so uncomfortable. Patient stated with the episode there was no nausea no vomiting no frequent stool stated was urinating with no difficulty. Patient stated there was no blood in stool Patient did have a CAT scan of the abdomen and pelvis with IV contrast done in the emergency room to evaluate the right lower quadrant pain in summary it showed colon diverticulosis without acute diverticulitis tiny pleural effusion right inguinal hernia containing cecum also included part of the terminal ileum may be resulting in low-grade small bowel obstruction some small free air in the hernia sac cannot exclude incarceration. Additionally patient does have a history of atrial fibrillation is on elquist Currently this morning the patient states the discomfort in the abdomen has significantly improved Patient does have a history of having a prior cholecystectomy, appendectomy , and 2 hernia repairs done in the past. Patient stated that she had a hernia repair done on the left side by Dr. vieira in January 2017 Review of Systems Essentially unremarkable except as mentioned in the present illness Past Medical History Past Medical History: Atrial Fibrillation, GERD/Reflux, Hyperlipidemia, Hypertension, Osteoarthritis (OA), Syncope, Thyroid Disorder Additional Past Medical History / Comment(s): ARTHRITIS IN KNEES, LOW THYROID, OCC. CONSTIPATION, severe secondary pulmonary hypertension, moderate tricuspid regurgitation History of Any Multi-Drug Resistant Organisms: None Reported Past Surgical History: Cholecystectomy, Hernia Repair, Pacemaker, Tonsillectomy Additional Past Surgical History / Comment(s): LOOP RECORDER PLACED 05-14-17 Past Anesthesia/Blood Transfusion Reactions: No Reported Reaction Additional Past Anesthesia/Blood Transfusion Reaction / Comm: NEVER HAD BLOOD TRANSFUSION Type of Cardiac Device: Permanent Pacemaker Device Placement Date:: 05/31/17 Past Psychological History: No Psychological Hx Reported Smoking Status: Never smoker Past Alcohol Use History: None Reported Past Drug Use History: None Reported - Past Family History Mother Family Medical History: Cancer Additional Family Medical History / Comment(s): LIVER CANCER Medications and Allergies Home Medications Medication Instructions Recorded Confirmed Type Famotidine [Pepcid] 40 mg PO HS 01/22/17 07/18/17 History Isosorbide Mononitrate ER [Imdur] 30 mg PO DAILY 01/22/17 07/18/17 History Levothyroxine Sodium [Synthroid] 75 mcg PO DAILY 01/22/17 07/18/17 History Pravastatin Sodium [Pravachol] 40 mg PO DAILY 01/22/17 07/18/17 History Jovanny/D3/Mag11/Zinc/Senior Sales Representative/Kana/Bor 1 tab PO DAILY 05/10/17 07/18/17 History [Caltrate 600+D Plus Tablet] Losartan [Cozaar] 50 mg PO DAILY 05/10/17 07/18/17 History Multivitamins, Thera [Multivitamin 1 tab PO DAILY 05/10/17 07/18/17 History (formulary)] Apixaban [Eliquis] 2.5 mg PO BID 05/27/17 07/18/17 History Flecainide Acetate 50 mg PO BID 05/27/17 07/18/17 History Metoprolol Tartrate [Lopressor] 12.5 mg PO BID 05/27/17 07/18/17 History Nitroglycerin Sl Tabs [Nitrostat] 0.4 mg SUBLINGUAL Q5M PRN 05/27/17 07/18/17 History amLODIPine [Norvasc] 5 mg PO DAILY 05/27/17 07/18/17 History Cholecalciferol [Vitamin D3] 1,000 unit PO DAILY 07/03/17 07/18/17 History Allergies Allergy/AdvReac Type Severity Reaction Status Date / Time latex Allergy Unknown Itching Verified 07/18/17 07:50 Surgical - Exam Vital Signs Temp Pulse Resp BP Pulse Ox 97.0 F L 81 20 196/93 97 07/17/17 23:25 07/17/17 23:25 07/17/17 23:25 07/17/17 23:25 07/17/17 23:25 GENERAL APPEARANCE: 86-year-old female patient is alert, oriented 3 pleasant cooperative, in no acute distress. VITAL SIGNS: Reviewed HEENT: Head is normocephalic and atraumatic. Pupils are equal and reactive. The nares are patent. Oropharynx is clear without lesions. NECK: Supple without lymphadenopathy. Traches midline. HEART: S1, S2. Irregular LUNGS: No crackles or wheezes are heard. Adequate air movement bilaterally on room air ABDOMEN: Soft, nontender, nondistended with good bowel sounds. No peritoneal signs. No palpable organomegaly or masses. EXTREMITIES: Normal skin color and turgor. No cyanosis, rash, ulceration, clubbing or edema. Radial pedal pulses are 2/4 bilaterally. NEUROLOGICAL: No focal deficits. Strength and sensation are grossly intact. Results - Labs 07/18/17 00:10 07/18/17 00:10 Abnormal Lab Results - Last 24 Hours (Table) 07/18/17 07/18/17 07/18/17 Range/Units 00:10 00:10 00:10 Lymphocytes # 0.8 L (1.0-4.8) k/uL INR 1.2 H (<1.2) Sodium 127 L (137-145) mmol/L Chloride 96 L (98-107) mmol/L Glucose 138 H (74-99) mg/dL Urine Ketones (Negative) 07/18/17 Range/Units 00:41 Lymphocytes # (1.0-4.8) k/uL INR (<1.2) Sodium (137-145) mmol/L Chloride (98-107) mmol/L Glucose (74-99) mg/dL Urine Ketones Trace H (Negative) Diabetes panel 07/18/17 Range/Units 00:10 Sodium 127 L (137-145) mmol/L Potassium 4.3 (3.5-5.1) mmol/L Chloride 96 L (98-107) mmol/L Carbon Dioxide 22 (22-30) mmol/L BUN 16 (7-17) mg/dL Creatinine 0.70 (0.52-1.04) mg/dL Glucose 138 H (74-99) mg/dL Calcium 9.1 (8.4-10.2) mg/dL AST 26 (14-36) U/L ALT 29 (9-52) U/L Alkaline Phosphatase 98 (38-126) U/L Total Protein 6.4 (6.3-8.2) g/dL Albumin 4.0 (3.5-5.0) g/dL Calcium panel 07/18/17 Range/Units 00:10 Calcium 9.1 (8.4-10.2) mg/dL Albumin 4.0 (3.5-5.0) g/dL Pituitary panel 07/18/17 Range/Units 00:10 Sodium 127 L (137-145) mmol/L Potassium 4.3 (3.5-5.1) mmol/L Chloride 96 L (98-107) mmol/L Carbon Dioxide 22 (22-30) mmol/L BUN 16 (7-17) mg/dL Creatinine 0.70 (0.52-1.04) mg/dL Glucose 138 H (74-99) mg/dL Calcium 9.1 (8.4-10.2) mg/dL Adrenal panel 07/18/17 Range/Units 00:10 Sodium 127 L (137-145) mmol/L Potassium 4.3 (3.5-5.1) mmol/L Chloride 96 L (98-107) mmol/L Carbon Dioxide 22 (22-30) mmol/L BUN 16 (7-17) mg/dL Creatinine 0.70 (0.52-1.04) mg/dL Glucose 138 H (74-99) mg/dL Calcium 9.1 (8.4-10.2) mg/dL Total Bilirubin 0.8 (0.2-1.3) mg/dL AST 26 (14-36) U/L ALT 29 (9-52) U/L Alkaline Phosphatase 98 (38-126) U/L Total Protein 6.4 (6.3-8.2) g/dL Albumin 4.0 (3.5-5.0) g/dL Assessment and Plan Plan: Impression Present on admission sudden onset right upper quadrant pain suspect low-grade small bowel obstruction cannot be ruled out CAT scan abdomen pelvis present on admission right inguinal hernia small amount of free air in the hernia sac cannot exclude incarceration History of a left hernia repair in January 2017 Atrial fibrillation on anticoagulation elquist History of a permanent pacemaker CAT scan abdomen and pelvis show: Diverticulosis no evidence of diverticulitis Present on admission hyponatremia Plan We'll repeat a CAT scan of the abdomen pelvis at 1:00 this afternoon with no contrast IV fluid for hydration Did speak with cardiology service in regards to the anticoagulation elquist could be held 24 hours before planned procedure Repeat labs follow results Pain control Further surgical recommendations pending repeat CAT scan after reviewed by this afternoon Update plan with the family questions answered DVT and GI prophylaxis if Surgery is indicated cardiology indicates Elquist can be stopped for 24 hours prior to the planned procedure No evidence of an acute surgical abdomen at this time Thank you for allowing us to participate in the surgical management of your patient further surgical recommendations will be forthcoming after following clinical course closely The above impression and plan of care have been discussed and directed by signing physician. Diane Jones nurse practitioner acting as scribe for signing physician.
[2017-07-18] MEDS: CHOLECALCIFEROL 1,000 UNIT TAB PO SCH (13:21)
[2017-07-18] MEDS: MULTIVITAMINS, THERA 1 EACH TAB PO SCH (13:21)
--- NOTE | 2017-07-18 13:25 | CT ---
EXAMINATION TYPE: CT abdomen pelvis wo con DATE OF EXAM: 07/18/2017 COMPARISON: 07/18/2017 HISTORY: Follow up scan. Evaluate for pneumoperitoneum. Right lower quadrant pain and right inguinal hernia. CT DLP: 261.1 mGycm Automated exposure control for dose reduction was used. TECHNIQUE: Helical acquisition of images was performed from the lung bases through the pelvis. FINDINGS: Evaluation of the solid viscera is limited secondary to the lack of intravenous contrast. E valuation of the hollow viscera is limited secondary lack of oral contrast. LUNG BASES: Small bilateral pleural effusions with bibasilar atelectasis are again noted. LIVER/GB: Again there are calcifications within the dome of the right lobe of the liver, either relat ed to prior trauma or granulomatous change. Cholecystectomy has been performed. There is unchanged in trahepatic biliary ductal dilatation, mild in degree as well as extrahepatic biliary ductal dilatatio n, likely postcholecystectomy change.. PANCREAS: The previously seen 8.7 mm cystic structure in the body the pancreas without ductal dilatat ion is not well-demonstrated on this unenhanced examination. SPLEEN: No significant abnormality is seen. ADRENALS: No significant abnormality is seen. KIDNEYS: Some contrast is seen within the collecting systems from the recent CT of earlier on the [facility] e date. Therefore the nonobstructing left renal calculus is not visualized. Additionally without cont rast the tiny right cortically based renal lesion in the superior pole is also not visualized. FREE AIR: No free air is visualized RETROPERITONEAL ADENOPATHY: None visualized REPRODUCTIVE ORGANS: No significant abnormality is seen URINARY BLADDER: No significant abnormality is seen. PELVIC ADENOPATHY: None visualized. OSSEOUS STRUCTURES: There is redemonstration of grade 1 anterolisthesis of L4 on L5 and L5 on S1. No acute fracture or dislocation is seen. Degenerative changes of the thoracolumbar and lumbosacral spi ne are redemonstrated. BOWEL: There appears to have been interval reduction of the right inguinal hernia with the cecum no longer seen within the right inguinal canal, however new loops of small bowel have now occupied the r ight inguinal hernia. Although there is no evidence of pneumoperitoneum or pneumatosis there is narro wing of the small bowel as it enters and exits the hernia sac. The hernia neck at this location measu res approximately 2.2 cm. There is evidence of a left inguinal hernia repair. Subcutaneous emphysema is seen of the anterior left paracentral pelvic soft tissues. Small hiatal hernia is noted. Scattered colonic diverticulosis without pericolonic fat stranding is a lso seen. There is no increase in bowel caliber in the interim. Small bowel loops remain mildly dilat ed measuring up to 3.1 cm. OTHER: Atherosclerosis of the abdominal aorta and its branches is again noted, circumferentially and moderate in degree. IMPRESSION: INTERVAL REDUCTION OF THE RIGHT INGUINAL HERNIA WITH THE CECUM NO LONGER CONTAINED WITHIN THE HERNIA SAC. LOOPS OF SMALL BOWEL ARE NOW PRESENT WITHIN THE RIGHT INGUINAL HERNIA WITH NARROWING OF CALIBER AT THE ENTRY AND EXIT SITE. HERNIA NECK MEASURES 2.2 CM. NO PNEUMATOSIS INTESTINALIS OR PNEUMOPERITON EUM. NO BOWEL WALL THICKENING TO SUGGEST CURRENT INCARCERATION. LOW-GRADE PARTIAL OBSTRUCTION PERSIST S A RESULT.
--- NOTE | 2017-07-18 15:52 | P.CON ---
Consult Note - . Consult date: 07/18/17 Assessment/Plan:: I I reviewed all the findings and the notes for read and agree with them . This is a summary of my findings assessment and plan Patient is an 86-year-old female with multiple medical problems including thyroid disorder, osteoarthritis, irregular heart rhythm, previous history of recurrent hernia repair. She presented with abdominal pain and was diagnosed as having an incarcerated hernia. Since presentation she is doing much better with resolution of her abdominal pain and she's not had any nausea and vomiting and abdominal distention is decreased. She not get her recall having passed any flatus. On focused clinical examination the abdomen is soft and is nondistended there are no peritoneal signs there is no obviously palpable hernia at this time. There's no jaundice or icterus distressed peripheral edema. Repeat computed tomography scan of the abdomen and pelvis and pre-abdomen pelvis were all reviewed at this time and to small bowel which is only partially distended and is not completely obstructed. The initial swelling has reduced both on CAT scan and clinically. Labs were also reviewed Assessment and plan the patient recently had a pacemaker placed and is currently on liquids. According to the medication inserted for ELIQUIS it is contraindicated in patients about 75 years of age primarily because of decreased clearance and increased risk of bleeding. The patient took her last early during the day yesterday. Due to her increased age and risk of bleeding I would not perform any surgery before 72 hours of complete discontinuation of the requested to her risk of bleeding. At this time she is not obstructed and therefore I she'll continue to observe her clinically. She is at a very high risk for bleeding at this time since the liquids. Less than 24 hours ago. At this time I will clinically observe this patient and have discussed with the patient that this surgery may be done potentially Saturday provided there is appropriate amount of washout time. This may probably be done by my partner Dr. garcía will discuss the case with her as well [place]
[2017-07-18 16:41] LABS: Glucose,Whole Blood 88 mg/dL (75-99)
[2017-07-18] MEDS: HEPARIN SODIUM,PORCINE 5,000 UNIT/ML 1 ML VIAL SQ SCH ×2 (17:01→23:25)
[2017-07-18] MEDS: FAMOTIDINE 20 MG TAB PO SCH (21:09)
[2017-07-18] MEDS: PRAVASTATIN SODIUM 40 MG TAB PO SCH (21:09)
[2017-07-19] MEDS: LEVOTHYROXINE 75 MCG TAB PO SCH (05:54)
[2017-07-19 07:48] LABS: ALT 26 U/L (9-52); AST 24 U/L (14-36); Alkaline Phosphatase 73 U/L (38-126); Anion Gap 5 mmol/L; Blood Urea Nitrogen 13 mg/dL (7-17); Calcium 8.3 mg/dL (8.4-10.2); Carbon Dioxide 22 mmol/L (22-30); Chloride 107 mmol/L (98-107); Glucose 70 mg/dL (74-99); Non-African American GFR(MDRD) >60 (>60 ml/min/1.73 sqM); Potassium 4.4 mmol/L (3.5-5.1); Sodium 134 mmol/L (137-145); Total Bilirubin 0.8 mg/dL (0.2-1.3); Total Protein 5.2 g/dL (6.3-8.2)
[2017-07-19 07:50] LABS: Aty Lym Flag Slight; CH 27.8; CHCM 31.4; HCT 35.5 % (34.0-46.0); HGB 11.4 gm/dL (11.4-16.0); MCH 28.7 pg (25.0-35.0); MCHC 32.2 g/dL (31.0-37.0); Mean Platelet Volume 7.2; RBC 3.99 m/uL (3.80-5.40); RDW 13.3 % (11.5-15.5); WBC 4.3 k/uL (3.8-10.6); WBC (Perox) 4.42
[2017-07-19] MEDS: HEPARIN SODIUM,PORCINE 5,000 UNIT/ML 1 ML VIAL SQ SCH (08:44)
[2017-07-19] MEDS: METOPROLOL TARTRATE 12.5 MG TAB PO SCH ×2 (08:44→22:22)
[2017-07-19] MEDS: SODIUM CHLORIDE 0.9% 1,000 ML IV SCH ×2 (08:48→22:20)
[2017-07-19] MEDS ORDERED: HEPARIN SODIUM,PORCINE 5,000 UNIT/ML 1 ML VIAL IV ONE (09:16)
[2017-07-19] MEDS ORDERED: HEPARIN SODIUM,PORCINE 5,000 UNIT/ML 1 ML VIAL IV PRN (09:21)
--- NOTE | 2017-07-19 09:24 | HP ---
DATE OF ADMISSION: 07/18/17 PRESENTING COMPLAINT: Abdominal pain. HISTORY OF PRESENTING COMPLAINT: This is a very pleasant 86-year-old patient being followed by Dr. Leigh. The patient MTDD
[2017-07-19] MEDS: amLODIPine 5 MG TAB PO SCH (09:33)
[2017-07-19] MEDS: ISOSORBIDE MONONITRATE ER 30 MG TAB.ER.24H PO SCH (09:33)
[2017-07-19] MEDS: FLECAINIDE 50 MG TAB PO SCH ×2 (09:33→22:22)
[2017-07-19] MEDS: LOSARTAN 50 MG TAB PO SCH (09:33)
--- NOTE | 2017-07-19 09:42 | HP ---
DATE OF ADMISSION: 07/18/2017 PRESENTING COMPLAINT: Abdominal pain. HISTORY OF PRESENTING COMPLAINT: This is a very pleasant 86-year-old patient with chronic stable medical conditions include GERD, hyperlipidemia, hypothyroid , secondary pulmonary hypertension, tricuspid regurgitation, permanent pacemaker , diverticulosis. Yesterday around 4:00 p.m. the patient slightly developed increasing pain in the right lower abdomen and felt it tensing, bulging, and came to the emergency room. CT scan did confirm inguinal hernia with cecum in there. There was slight nausea, no vomiting. No fever. Subsequently the patient had a bowel movement and the swelling settled down. Patient recently acquired a pacemaker for bradycardia. REVIEW OF SYSTEMS: CONSTITUTIONAL: Tired. HEENT: Decreased hearing. RESPIRATORY: None. CARDIOVASCULAR: Pacemaker. GASTROINTESTINAL: As above. GENITOURINARY: None. MUSCULOSKELETAL: Pain in the joints. DERMATOLOGICAL: None. HEMATOLOGICAL: None. LYMPHATIC: None. PSYCHIATRY: Slightly forgetful. NEUROLOGICAL: None. PAST MEDICAL HISTORY: Bradycardia causing getting a pacemaker, GERD, hyperlipidemia, hypertension, osteoarthritis, thyroid disorder, moderate tricuspid regurgitation, severe secondary pulmonary hypertension. PAST SURGICAL HISTORY: Cholecystectomy, hernia repair, tonsillectomy, pacemaker. SOCIAL HISTORY: Lives alone. No smoking, no alcohol. FAMILY HISTORY: Mother had liver cancer. HOME MEDICATIONS: Norvasc 5 mg p.o. daily, Pravachol 40 mg p.o. daily, Nitrostat 0.4 sublingual q.5 p.r.n., multivitamin 1 p.o. daily, Lopressor 12.5 p.o. b.i.d., Cozaar 50 mg p.o. daily, Synthroid 75 mcg, p.o. daily, Imdur ER 30 mg p.o. daily, Flecainide 50 mg p.o. b.i.d., Pepcid 20 mg p.o. q.h.s., vitamin D3 1000 units p.o. daily, calcium with vitamin D 1 tablet p.o. daily, Eliquis 2.5 mg p.o. b.i.d. ALLERGIES: LATEX. On examination, temperature 97.7, pulse 54, respirations 16, blood pressure 130/ 60, pulse ox 94% on room air. GENERAL APPEARANCE: Average built, lying in bed, tired appearing. EYES: Pupils equal, conjunctivae normal. HEENT: Oral cavity normal. NECK: JVD not raised. Mass not palpable. RESPIRATORY: Effort normal. LUNGS: Diminished breath sounds. CARDIOVASCULAR: Fist and second sounds are normal. No edema. ABDOMEN: Soft, nontender. Liver and spleen not palpable. LYMPHATIC: No lymph node palpable in the neck or axillae. PSYCHIATRIC: Alert, oriented x3. Mood and affect normal. MUSCULOSKELETAL: Evidence of osteoarthritis in multiple joints. INVESTIGATIONS: White count 6.3, hemoglobin 11.8, sodium 127, potassium 4.3. Abdominal CT scan showed right inguinal hernia with cecum present. ASSESSMENT: 1. Acute right inguinal hernia with obstruction present on admission. 2. Gastroesophageal reflux disease. 3. Hyperlipidemia. 4. Essential hypertension. 5. Hypothyroidism. 6. Severe secondary pulmonary hypertension. 7. Moderate tricuspid regurgitation, nonrheumatic. 8. Colonic diverticulosis. 9. Permanent pacemaker. PLAN: Home medications are resumed. Put on IV fluids. General Surgery was consulted for considering surgery tomorrow. I discussed the case with the patient and daughter at bedside. Questions were answered. URI
[2017-07-19 09:46] LABS: INR 1.2 (<1.2); Partial Thromboplastin Time 30.7 sec (22.0-30.0); Prothrombin Time 11.7 sec (9.0-12.0)
[2017-07-19 10:26] LABS: Add Differential Manual Differential
[2017-07-19 10:29] LABS: Nucleated Red Blood Cells 0 /100 WBC (0-0); Total Cells Counted 100
[2017-07-19 10:30] LABS: Manual Review Performed
[2017-07-19] MEDS: HEPARIN SODIUM,PORCINE/D5W PMX 25,000 UNIT in DEXTROSE/WATER 1 500ML.BAG IV SCH (10:41)
--- NOTE | 2017-07-19 12:39 | P.PN ---
Subjective 86-year-old female being seen in rounds this morning. Family at bedside. currently is resting comfortably in bed reports no abdominal pain. Reports no nausea no vomiting. Patient states she had a bowel movement this morning. Passing gas. Patient has prior history of having a right inguinal hernia repair. Patient this admission percent up with abdominal discomfort was diagnosed with an incarcerated hernia. Since being admitted to the hospital the abdominal pain has resolved patient has not had any nausea vomiting there is no abdominal distention. Repeat CAT scan was reviewed by it showed initial swelling had been reduced. At this time the small bowel is only partially distended is not completely obstructed. Patient is on elquist for paroxysmal atrial fibrillation. Surgery is indicating given that the patient is at an increased risk of bleeding would not perform surgery before 72 hours of complete discontinuing the eliquis will clinically observe the patient. Patient will be monitored closely with further clinical recommendations pending Objective - Vital Signs Vital signs: Vital Signs Temp 97.2 F L 07/19/17 07:15 Pulse 71 07/19/17 07:15 Resp 16 07/19/17 07:15 BP 148/73 07/19/17 07:15 Pulse Ox 95 07/19/17 07:15 Intake & Output 07/18/17 07/19/17 07/19/17 18:59 06:59 18:59 Intake Total 563 590 Balance 563 590 Intake: Intake, IV Titration 563 Amount Sodium Chloride 0.9% 1, 563 000 ml @ 75 mls/hr IV . [id number] [facility] Rx#:[id number] Oral 0 590 Other: # Voids 1 - Exam Physical exam 86-year-old female sitting up in bed does not appear in any acute distress pleasant cooperative oriented 3 Lungs essentially clear with adequate air movement on room air no cough noted Heart S1-S2 audible regular denying chest pain Abdomen soft no facial grimacing with palpitation to the abdominal wall positive bowel tones states had a bowel movement as morning urinating no difficulty no reports of nausea vomiting Extremities no edema noted - Labs CBC & Chem 7: 07/19/17 06:45 07/19/17 06:45 Labs: Abnormal Lab Results - Last 24 Hours (Table) 07/19/17 07/19/17 07/19/17 Range/Units 06:45 06:45 06:45 Lymphocytes # (Manual) 0.60 L (1.0-4.8) k/uL INR 1.2 H (<1.2) APTT 30.7 H (22.0-30.0) sec Sodium 134 L (137-145) mmol/L Glucose 70 L (74-99) mg/dL Calcium 8.3 L (8.4-10.2) mg/dL Total Protein 5.2 L (6.3-8.2) g/dL Albumin 3.0 L (3.5-5.0) g/dL Assessment and Plan Plan: Impression Present on admission sudden onset right upper quadrant pain suspect low-grade small bowel obstruction repeat CAT scans show improvement resolving CAT scan abdomen pelvis present on admission right inguinal hernia small amount of free air in the hernia sac cannot exclude incarceration History of a right hernia repair in January 2017 Paroxysmal atrial fibrillation on anticoagulationq elquist History of a permanent pacemaker CAT scan abdomen and pelvis show: Diverticulosis no evidence of diverticulitis Present on admission hyponatremia resolved Plan IV fluid for hydration Did speak with cardiology service in regards to the anticoagulation elquist could be held 24 hours before planned procedure Cardiology indicate start IV heparin drip no bolus. Subcu heparin until a decision is made regarding surgical management Repeat labs follow results Pain control Clear liquid diet advance as tolerated Update plan with the family questions answered DVT and GI prophylaxis No evidence of an acute surgical abdomen at this time repeat CAT scan imaging show improvement no signs of obstruction The above impression and plan of care have been discussed and directed by signing physician. Diane Jones nurse practitioner acting as scribe for signing physician.
[2017-07-19] MEDS: CHOLECALCIFEROL 1,000 UNIT TAB PO SCH (13:05)
[2017-07-19] MEDS: MULTIVITAMINS, THERA 1 EACH TAB PO SCH (13:05)
--- NOTE | 2017-07-19 19:32 | P.PN ---
<Juliana Plascencia - Last Filed: 07/19/17 19:20> Progress Note - Text DATE OF SERVICE: 07/19/2017 PRESENTING COMPLAINT: Abdominal pain INTERVAL HISTORY: This is an 86-year-old female who presented with increasing right lower quadrant pain, was found to have a right inguinal hernia with an obstruction. 07/19/2017: Sitting up on the edge of the bed no acute distress noted. Patient is eating her lunch is able to tolerate this. Has no complaints of abdominal pain at this time. Ambulatory within the room. No BM. Daughter at the bedside. Discussion had about plan of care and surgical intervention versus the possibility of going home. Questions were answered. REVIEW OF SYSTEMS: Done for constitutional ,cardiovascular, GI, pulmonary with relevant findings as above. CURRENT MEDICATIONS Norvasc, Pepcid, Tambocor, heparin, Synthroid, Imdur, Cozaar, Lopressor, nitro. PHYSICAL EXAM VITAL SIGNS: Temperature 97.2, respirations 18, pulse 71, blood pressure 148/73, oxygen saturation 95% on room air. GENERAL APPEARANCE: Lying in bed, not in distress. EYES: Pupils equal. Conjunctiva normal. NECK: JVD not raised. Mass not palpable. RESPIRATORY: Respiratory effort normal. Lungs diminished to auscultation. CARDIOVASCULAR: First and second sounds normal. No edema. ABDOMEN: Soft. Liver and spleen not palpable. No tenderness. No mass palpable. PSYCHIATRY: Alert and oriented x3. Mood and affect normal. INVESTIGATIONS: CBC grossly unremarkable, INR 1.2, sodium 134, Computed tomography scan abdomen: Interval reduction with the right inguinal hernia with the cecum no longer contained within the hernia sac. Loops small bowel are now present within the right inguinal hernia with narrowing of Kalber at the entry and exit site hernia neck measures 2.2 cm no pneumatosis intestinalis or pneumoperitoneum. ASSESSMENT: -Acute right inguinal hernia with obstruction present on admission. -Gastroesophageal reflux disease. -Hyperlipidemia. -Essential hypertension. -Hypothyroidism. -Severe secondary pulmonary hypertension. -Moderate tricuspid regurgitation nonrheumatic. -Colonic diverticulosis. -Permanent pacemaker. PLAN: Currently patient has no symptoms and appears to be pretty comfortable however we will continue to monitor patient clinically for any additional symptoms of acute abdomen. General surgery continues to follow. We will continue the current medication and treatment plan. Plan of care discussed with the patient and daughter at bedside there in agreement with this plan. PRODUCT ANALYST statement: Patient was seen and examined by nurse practitioner Juliana Plascencia and all elements of the case discussed with attending Dr. Segovia <Gagan Segovia - Last Filed: 07/20/17 12:58> Progress Note - Text Attending note. Date of service-07/19/2017 This patient was seen and examined by me . Discussed the patient with my nurse practitioner Ms. Plascencia. Admitted with right inguinal hernia obstructing now completely resolved. Surgery will decide if the patient to surgery now or weight maybe do down the road. Started on her diet On examination: Abdomen soft nontender pulses present Investigations: Computed tomography scan is as noted Assessment and plan: Right inguinal hernia with obstruction now resolved./IV heparin monitoring Care discussed with the patient and family the bedside. Await further input from surgery.
[2017-07-19] MEDS: FAMOTIDINE 20 MG TAB PO SCH (22:21)
[2017-07-19] MEDS: PRAVASTATIN SODIUM 40 MG TAB PO SCH (22:22)
[2017-07-20] MEDS: LEVOTHYROXINE 75 MCG TAB PO SCH (06:25)
[2017-07-20 08:09] LABS: Basophils % (A) 0 %; CHCM 31.6; Eosinophils # (A) 0.1 k/uL (0-0.7); Eosinophils % (A) 3 %; HCT 39.6 % (34.0-46.0); HDW 2.25; HGB 12.7 gm/dL (11.4-16.0); Luc # (Auto) 0.19; Luc % (Auto) 4; Lymphocytes # (A) 1.1 k/uL (1.0-4.8); Lymphocytes % (A) 25 %; MCH 28.4 pg (25.0-35.0); MCHC 31.9 g/dL (31.0-37.0); MCV 88.9 fL (80.0-100.0); Mean Platelet Volume 7.8; Monocytes # (A) 0.5 k/uL (0-1.0); Monocytes % (A) 10 %; Neutrophils # (A) 2.6 k/uL (1.3-7.7); Neutrophils % (A) 58 %; RBC 4.46 m/uL (3.80-5.40); RDW 13.1 % (11.5-15.5); WBC 4.5 k/uL (3.8-10.6); WBC (Perox) 4.51
[2017-07-20 08:39] LABS: ALT 30 U/L (9-52); AST 24 U/L (14-36); Alkaline Phosphatase 93 U/L (38-126); Anion Gap 7 mmol/L; Blood Urea Nitrogen 8 mg/dL (7-17); Calcium 8.6 mg/dL (8.4-10.2); Carbon Dioxide 25 mmol/L (22-30); Chloride 104 mmol/L (98-107); Glucose 87 mg/dL (74-99); Non-African American GFR(MDRD) >60 (>60 ml/min/1.73 sqM); Potassium 4.2 mmol/L (3.5-5.1); Sodium 136 mmol/L (137-145); Total Bilirubin 0.5 mg/dL (0.2-1.3); Total Protein 5.9 g/dL (6.3-8.2)
[2017-07-20] MEDS: METOPROLOL TARTRATE 12.5 MG TAB PO SCH ×2 (08:57→21:53)
[2017-07-20] MEDS: ISOSORBIDE MONONITRATE ER 30 MG TAB.ER.24H PO SCH (08:57)
[2017-07-20] MEDS: FLECAINIDE 50 MG TAB PO SCH ×2 (08:57→21:53)
[2017-07-20] MEDS: amLODIPine 5 MG TAB PO SCH (08:57)
[2017-07-20] MEDS: LOSARTAN 50 MG TAB PO SCH (08:57)
--- NOTE | 2017-07-20 09:37 | P.PN ---
Progress Note - Text This is Dr. Ly dictating a progress note from July 19. This patient is admitted to the hospital with abdominal pain and is diagnosed to have obstructed inguinal hernia. Patient subsequently has improved and the pain has subsided. Surgical team is following her closely. Surgery is not planned for July 19 and we're going to put her on heparin and hold Eliquis. There is a possibility that patient may have surgery within next 24-48 hours. Cardiac- rodriguez patient is stable. Physical examination reveals elderly female who is alert and oriented. Doesn't appear to be in acute distress. Vital signs are reviewed. Lungs are clear. Heart is regular. Abdomen is soft. Final impression: #1. Inguinal hernia with obstruction. Symptoms have resolved #2. Status post permanent pacemaker implantation #3. Paroxysmal atrial fibrillation. Plan. We'll hold oral anticoagulation at this time. Continue with IV heparin. Await surgical decision
[2017-07-20] MEDS: HEPARIN SODIUM,PORCINE/D5W PMX 25,000 UNIT in DEXTROSE/WATER 1 500ML.BAG IV SCH (10:03)
[2017-07-20] MEDS: CHOLECALCIFEROL 1,000 UNIT TAB PO SCH (11:50)
[2017-07-20] MEDS: SODIUM CHLORIDE 0.9% 1,000 ML IV SCH (11:50)
[2017-07-20] MEDS: MULTIVITAMINS, THERA 1 EACH TAB PO SCH (11:50)
--- NOTE | 2017-07-20 13:13 | P.PN ---
Subjective Principal diagnosis: Recurrent left spigelian hernia 86 yrs old female , known patient of Dr. Merida presented with recurrent left spigelian hernia. No obstruction or incarcerating. Tolerating diet. Off Eloquis. On heparin drip for bridge anticoagulationas per cardiology recommendations. Objective - Vital Signs Vital signs: Vital Signs Temp 97.7 F 07/20/17 07:38 Pulse 69 07/20/17 07:38 Resp 12 07/20/17 07:38 BP 156/80 07/20/17 07:38 Pulse Ox 97 07/20/17 07:38 Intake & Output 07/19/17 07/20/17 07/20/17 18:59 06:59 18:59 Intake Total 708.317 300 259.802 Output Total 650 Balance 708.317 -350 259.802 Intake: Intake, IV Titration 708.317 259.802 Amount Heparin Sodium,Porcine/ 108.317 259.802 D5w Pmx 25,000 unit In Dextrose/Water 1 500ml. bag @ 12 UNITS/KG/HR 15. 89 mls/hr IV .Q24H [facility] Rx #:[id number] Sodium Chloride 0.9% 1, 600 000 ml @ 75 mls/hr IV . [id number] [facility] Rx#:[id number] Oral 300 Output: Urine 650 Other: # Voids 6 - Exam Patient alerat and awake. Remote Medical Coder pain. Hernia - reducible - Labs CBC & Chem 7: 07/20/17 06:30 07/20/17 06:30 Labs: Abnormal Lab Results - Last 24 Hours (Table) 07/19/17 07/20/17 07/20/17 Range/Units 16:25 06:30 06:30 APTT 68.2 H 105.9 H* (22.0-30.0) sec Sodium 136 L (137-145) mmol/L Total Protein 5.9 L (6.3-8.2) g/dL Assessment and Plan (1) Recurrent incisional hernia Status: Acute (2) Atrial fibrillation Status: Acute Plan: 1. Elective hernia repair by Dr. Merida - on Saturday 2. Currently no emergency. 3. She needs bridge anticoagulation with heparin which can be shut off 6 hrs prior to surgery 4. advance doet 5. NPO after midnight on Saturday
--- NOTE | 2017-07-20 15:00 | P.PN ---
<Juliana Plascencia - Last Filed: 07/20/17 14:53> Progress Note - Text DATE OF SERVICE: 07/20/2017 PRESENTING COMPLAINT: Abdominal pain INTERVAL HISTORY: This is an 86-year-old female who presented with increasing right lower quadrant pain, was found to have a right inguinal hernia with an obstruction. 07/20/2017: Lying in the bed no acute distress, no complaints of abdominal pain. Ambulatory within the room. No BM, son at the bedside. Heparin drip continues , for anticoagulation. Diet advanced per surgery. Patient is tentatively scheduled for elective hernia repair on Saturday with Dr. Merida. 07/19/2017: Sitting up on the edge of the bed no acute distress noted. Patient is eating her lunch is able to tolerate this. Has no complaints of abdominal pain at this time. Ambulatory within the room. No BM. Daughter at the bedside. Discussion had about plan of care and surgical intervention versus the possibility of going home. Questions were answered. REVIEW OF SYSTEMS: Done for constitutional ,cardiovascular, GI, pulmonary with relevant findings as above. CURRENT MEDICATIONS Norvasc, Pepcid, Tambocor, heparin, Synthroid, Imdur, Cozaar, Lopressor, nitro. PHYSICAL EXAM VITAL SIGNS: Temperature 97.7, pulse 69, respirations 18, blood pressure 156/80, oxygen saturation 97% on room air. GENERAL APPEARANCE: Lying in bed, not in distress. EYES: Pupils equal. Conjunctiva normal. NECK: JVD not raised. Mass not palpable. RESPIRATORY: Respiratory effort normal. Lungs diminished to auscultation. CARDIOVASCULAR: First and second sounds normal. No edema. ABDOMEN: Soft. Liver and spleen not palpable. No tenderness. No mass palpable. PSYCHIATRY: Alert and oriented x3. Mood and affect normal. INVESTIGATIONS: CBC unremarkable., Sodium 136 ASSESSMENT: -Acute right inguinal hernia with obstruction present on admission. -Gastroesophageal reflux disease. -Hyperlipidemia. -Essential hypertension. -Hypothyroidism. -Severe secondary pulmonary hypertension. -Moderate tricuspid regurgitation nonrheumatic. -Colonic diverticulosis. -Permanent pacemaker. PLAN: Currently patient has no symptoms and appears to be pretty comfortable however we will continue to monitor patient clinically for any additional symptoms of acute abdomen. Tentative plan for surgical intervention Saturday. Heparin drip to continue through the weekend until Saturday at which time he will need to be shut off for surgery. Plan of care discussed with the patient and son at bedside there in agreement with this plan. PATIENT CARE MANAGER statement: Patient was seen and examined by nurse practitioner Juliana Plascencia and all elements of the case discussed with attending Dr. Segovia <Gagan Segovia - Last Filed: 07/20/17 17:20> Progress Note - Text Attending note. Date of service-07/20/2017 This patient was seen and examined by me . Discussed the patient with my nurse practitioner Ms. Plascencia. Admitted with acute right inguinal hernia with obstruction now resolved. On IV heparin. schedule for surgery on Saturday. On examination: Abdomen-soft nontender bowel sounds present Investigations: White count 4.5 Assessment and plan: Acute right inguinal hernia with obstruction now resolved. For surgery on Saturday. Other medical conditions stable. IV heparin monitoring Discussed with Dr. Rousseau. Surgery on Saturday. Switch patient to Lovenox will hold her p.m. dose on Saturday
[2017-07-20] MEDS: FAMOTIDINE 20 MG TAB PO SCH (21:53)
[2017-07-20] MEDS: ENOXAPARIN 60 MG/0.6 ML SYRINGE SQ SCH (21:53)
[2017-07-20] MEDS: PRAVASTATIN SODIUM 40 MG TAB PO SCH (21:53)
[2017-07-21] MEDS: SODIUM CHLORIDE 0.9% 1,000 ML IV SCH ×2 (01:16→13:14)
[2017-07-21] MEDS: LEVOTHYROXINE 75 MCG TAB PO SCH (05:50)
[2017-07-21 07:47] LABS: Aty Lym Flag Slight; CH 28.2; CHCM 31.9; HCT 38.2 % (34.0-46.0); HDW 2.25; HGB 12.6 gm/dL (11.4-16.0); MCH 29.2 pg (25.0-35.0); MCV 88.7 fL (80.0-100.0); Mean Platelet Volume 7.1; RBC 4.31 m/uL (3.80-5.40); RDW 13.2 % (11.5-15.5); WBC 3.5 k/uL (3.8-10.6)
[2017-07-21] MEDS: LOSARTAN 50 MG TAB PO SCH (08:02)
[2017-07-21] MEDS: METOPROLOL TARTRATE 12.5 MG TAB PO SCH ×2 (08:02→21:20)
[2017-07-21] MEDS: ISOSORBIDE MONONITRATE ER 30 MG TAB.ER.24H PO SCH (08:02)
[2017-07-21] MEDS: FLECAINIDE 50 MG TAB PO SCH ×2 (08:02→21:20)
[2017-07-21] MEDS: amLODIPine 5 MG TAB PO SCH (08:02)
[2017-07-21 08:03] LABS: ALT 28 U/L (9-52); AST 23 U/L (14-36); Alkaline Phosphatase 84 U/L (38-126); Anion Gap 7 mmol/L; Blood Urea Nitrogen 6 mg/dL (7-17); Calcium 8.6 mg/dL (8.4-10.2); Carbon Dioxide 26 mmol/L (22-30); Chloride 103 mmol/L (98-107); Glucose 85 mg/dL (74-99); Non-African American GFR(MDRD) >60 (>60 ml/min/1.73 sqM); Potassium 3.9 mmol/L (3.5-5.1); Sodium 136 mmol/L (137-145); Total Bilirubin 0.5 mg/dL (0.2-1.3); Total Protein 5.8 g/dL (6.3-8.2)
[2017-07-21] MEDS: ENOXAPARIN 60 MG/0.6 ML SYRINGE SQ SCH ×2 (08:03→19:22)
[2017-07-21 08:42] LABS: Add Differential Manual Differential
[2017-07-21 08:44] LABS: Nucleated Red Blood Cells 0 /100 WBC (0-0); Total Cells Counted 100
[2017-07-21 08:45] LABS: Manual Review Performed
--- NOTE | 2017-07-21 11:37 | P.PN ---
Subjective Principal diagnosis: Recurrent left spigelian hernia 86 yrs old female , known patient of Dr. Merida presented with recurrent left spigelian hernia. No obstruction or incarcerating. Tolerating diet. Off Eloquis. Objective - Vital Signs Vital signs: Vital Signs Temp 98.1 F 07/21/17 07:00 Pulse 67 07/21/17 07:00 Resp 12 07/21/17 07:00 BP 162/84 07/21/17 07:00 Pulse Ox 97 07/21/17 07:00 Intake & Output 07/20/17 07/21/17 07/21/17 18:59 06:59 18:59 Intake Total 1059.802 900 Balance 1059.802 900 Intake: Intake, IV Titration 259.802 900 Amount Heparin Sodium,Porcine/ 259.802 D5w Pmx 25,000 unit In Dextrose/Water 1 500ml. bag @ 12 UNITS/KG/HR 15. 89 mls/hr IV .Q24H [facility] Rx #:[id number] Sodium Chloride 0.9% 1, 900 000 ml @ 75 mls/hr IV . [id number] [facility] Rx#:[id number] Oral 800 Other: # Voids 2 2 - Exam Patient alert and awake. No pain. Hernia - reducible - Labs CBC & Chem 7: 07/21/17 07:18 07/21/17 07:18 Labs: Abnormal Lab Results - Last 24 Hours (Table) 07/20/17 07/21/17 07/21/17 Range/Units 17:02 07:18 07:18 WBC 3.5 L (3.8-10.6) k/uL Lymphocytes # (Manual) 0.91 L (1.0-4.8) k/uL APTT 44.8 H (22.0-30.0) sec Sodium 136 L (137-145) mmol/L BUN 6 L (7-17) mg/dL Total Protein 5.8 L (6.3-8.2) g/dL Albumin 3.4 L (3.5-5.0) g/dL Assessment and Plan (1) Recurrent incisional hernia Status: Acute (2) Atrial fibrillation Status: Acute Plan: 1. Elective hernia repair by Dr. Merida - possibly on Saturday. 2. Currently no emergency. 3. Anticoagulation as per medicine team 4. Advance diet
[2017-07-21] MEDS: MULTIVITAMINS, THERA 1 EACH TAB PO SCH (13:13)
[2017-07-21] MEDS: CHOLECALCIFEROL 1,000 UNIT TAB PO SCH (13:13)
--- NOTE | 2017-07-21 19:15 | P.PN ---
<Juliana Plascencia - Last Filed: 07/21/17 19:05> Progress Note - Text DATE OF SERVICE: 07/21/2017 PRESENTING COMPLAINT: Abdominal pain HISTORY OF PRESENT ILLNESS: This is an 86-year-old female who presented with increasing right lower quadrant pain, was found to have a right inguinal hernia with an obstruction. INTERVAL HISTORY: 07/20/2017: Walking in the hallway with her son, no complaints of abdominal pain. Tolerating her diet, Lovenox for anticoagulation. No BM since day of admission. Plan of care discussed with the family at the bedside, questions answered. 07/20/2017: Lying in the bed no acute distress, no complaints of abdominal pain. Ambulatory within the room. No BM, son at the bedside. Heparin drip continues , for anticoagulation. Diet advanced per surgery. Patient is tentatively scheduled for elective hernia repair on Saturday with Dr. Merida. 07/19/2017: Sitting up on the edge of the bed no acute distress noted. Patient is eating her lunch is able to tolerate this. Has no complaints of abdominal pain at this time. Ambulatory within the room. No BM. Daughter at the bedside. Discussion had about plan of care and surgical intervention versus the possibility of going home. Questions were answered. REVIEW OF SYSTEMS: Done for constitutional ,cardiovascular, GI, pulmonary with relevant findings as above. CURRENT MEDICATIONS Norvasc, Pepcid, Tambocor, Lovenox Synthroid, Imdur, Cozaar, Lopressor, nitro. PHYSICAL EXAM VITAL SIGNS: Temperature 98.1, pulse 67, respirations 18, blood pressure 162/84, oxygen saturation 97% on room air. GENERAL APPEARANCE: Walking in the [place], not in distress. EYES: Pupils equal. Conjunctiva normal. NECK: JVD not raised. Mass not palpable. RESPIRATORY: Respiratory effort normal. Lungs diminished to auscultation. CARDIOVASCULAR: First and second sounds normal. No edema. ABDOMEN: Soft. Liver and spleen not palpable. No tenderness. No guarding or rigidity No mass palpable. PSYCHIATRY: Alert and oriented x3. Mood and affect normal. INVESTIGATIONS: White blood cell count 3.5, sodium 136 BUN 6 creatinine 0.70 ASSESSMENT: -Acute right inguinal hernia with obstruction, present on admission.now resolved -Gastroesophageal reflux disease. -Hyperlipidemia. -Essential hypertension. -Hypothyroidism. -Severe secondary pulmonary hypertension. -Moderate tricuspid regurgitation nonrheumatic. -Colonic diverticulosis. -Permanent pacemaker. PLAN: Currently patient has no symptoms and appears to be pretty comfortable however we will continue to monitor patient clinically for any additional symptoms of acute abdomen. Tentative plan for surgical intervention Saturday. Current anticoagulation plan is Lovenox twice a day through Saturday morning hold Saturday p.m. dose for possible surgical intervention on Saturday. Plan of care discussed with the patient and son at bedside and they are in agreement with this plan. NUT AND BOLT ASSEMBLER statement: Patient was seen and examined by nurse practitioner Juliana Plascencia and all elements of the case discussed with attending Dr. Segovia <Gagan Segovia - Last Filed: 07/21/17 21:54> Progress Note - Text Attending note. Date of service-07/21/2017 This patient was seen and examined by me . Discussed the patient with my nurse practitioner Ms. Plascencia. Sitting up in a chair comfortable. No abdominal pain. On examination: Abdomen soft nontender, lungs-clear Investigations: White count 3.5, potassium 3.9 Assessment and plan: Acute right inguinal hernia with obstruction now resolved. Dr. Rousseau to call me to let. Patient is scheduled for surgery tomorrow. Hence patient's evening dose of Lovenox has been discontinued by her. earlier has spoken to the family.
[2017-07-21] MEDS: PRAVASTATIN SODIUM 40 MG TAB PO SCH (21:20)
[2017-07-21] MEDS: FAMOTIDINE 20 MG TAB PO SCH (21:20)
[2017-07-22] MEDS: SODIUM CHLORIDE 0.9% 1,000 ML IV SCH ×2 (05:11→18:17)
[2017-07-22 07:42] LABS: Aty Lym Flag Slight; CH 29.1; CHCM 32.3; HCT 39.7 % (34.0-46.0); HDW 2.22; HGB 12.5 gm/dL (11.4-16.0); MCH 28.5 pg (25.0-35.0); MCHC 31.5 g/dL (31.0-37.0); MCV 90.5 fL (80.0-100.0); Mean Platelet Volume 7.5; RBC 4.39 m/uL (3.80-5.40); WBC 3.5 k/uL (3.8-10.6); WBC (Perox) 3.54
[2017-07-22 08:52] LABS: Add Differential Manual Differential
[2017-07-22 08:57] LABS: Band Neutrophils % 1 %; Nucleated Red Blood Cells 0 /100 WBC (0-0); Total Cells Counted 100
[2017-07-22 08:58] LABS: Manual Review Performed
[2017-07-22] MEDS: LEVOTHYROXINE 75 MCG TAB PO SCH (09:27)
[2017-07-22] MEDS: ISOSORBIDE MONONITRATE ER 30 MG TAB.ER.24H PO SCH (10:15)
[2017-07-22] MEDS: METOPROLOL TARTRATE 12.5 MG TAB PO SCH ×2 (10:15→20:57)
[2017-07-22] MEDS: FLECAINIDE 50 MG TAB PO SCH ×2 (10:15→20:57)
[2017-07-22] MEDS: amLODIPine 5 MG TAB PO SCH (10:15)
[2017-07-22] MEDS: LOSARTAN 50 MG TAB PO SCH (10:16)
[2017-07-22] MEDS: MULTIVITAMINS, THERA 1 EACH TAB PO SCH (13:26)
[2017-07-22] MEDS: CHOLECALCIFEROL 1,000 UNIT TAB PO SCH (13:26)
[2017-07-22] MEDS ORDERED: IV FLUID CONTINUATION 1,000 ML IV ONE (13:34)
[2017-07-22] MEDS ORDERED: LACTATED RINGERS 1,000 ML IV ONE ×3 (13:47→16:33)
[2017-07-22] MEDS ORDERED: LIDOCAINE 1% 20 ML VIAL (10MG/ML) FOR IV START INTRADERMA ONE (14:00)
--- NOTE | 2017-07-22 14:55 | P.PN ---
Subjective Principal diagnosis: Right inguinal hernia 86 yrs old female , known patient of Dr. Merida presented with right inguinal hernia. No obstruction or incarcerating. Tolerating diet. Off Eloquis. Objective - Vital Signs Vital signs: Vital Signs Temp 97.6 F 07/22/17 13:45 Pulse 67 07/22/17 13:45 Resp 16 07/22/17 13:45 BP 140/69 07/22/17 13:45 Pulse Ox 98 07/22/17 13:45 Intake & Output 07/21/17 07/22/17 07/22/17 18:59 06:59 18:59 Intake Total 800 900 613 Balance 800 900 613 Intake: IV 50 Intake, IV Titration 600 900 563 Amount Sodium Chloride 0.9% 1, 600 900 563 000 ml @ 75 mls/hr IV . [id number] [facility] Rx#:[id number] Oral 200 Other: Voiding Method Toilet # Voids 2 2 - Exam Patient alert and awake. No pain. Hernia - reducible - Labs CBC & Chem 7: 07/22/17 06:57 07/21/17 07:18 Labs: Abnormal Lab Results - Last 24 Hours (Table) 07/22/17 Range/Units 06:57 WBC 3.5 L (3.8-10.6) k/uL Lymphocytes # (Manual) 0.84 L (1.0-4.8) k/uL Assessment and Plan (1) Recurrent incisional hernia Status: Acute (2) Atrial fibrillation Status: Acute Plan: 1.Robotic assist lap right inguinal hernia repair with mesh possible open.
[2017-07-22] MEDS ORDERED: ceFAZolin 2 GM in SODIUM CHLORIDE 0.9% 100 ML IVPB ONE (15:03)
[2017-07-22] MEDS ORDERED: PROPOFOL 10 MG/ML 20 ML VIAL IV ONE (15:29)
[2017-07-22] MEDS ORDERED: LIDOCAINE 1% INJ 10MG/ML (20 ML MDV) ONE (15:29)
[2017-07-22] MEDS ORDERED: GLYCOPYRROLATE 0.2 MG/ML 2 ML VIAL ONE (15:29)
[2017-07-22] MEDS ORDERED: fentaNYL (PF) 50 MCG/ML 2 ML AMP ONE (15:29)
[2017-07-22] MEDS ORDERED: PHENYLEPHRINE-0.9% NACL SYG 1 MG/10 ML SYRINGE ONE (15:29)
[2017-07-22] MEDS ORDERED: SUCCINYLCHOLINE CHLORIDE 100 MG/5 ML SYR IV ONE (15:29)
[2017-07-22] MEDS ORDERED: NEOSTIGMINE 1 MG/ML 10 ML VIAL ONE (15:29)
[2017-07-22] MEDS ORDERED: ePHEDrine SULFATE/0.9% NACL/PF 50 MG/5 ML SYRINGE IV ONE (15:29)
[2017-07-22] MEDS ORDERED: ROCURONIUM BROMIDE 10 MG/ML 10 ML VIAL IV ONE (15:29)
[2017-07-22] MEDS ORDERED: LIDOCAINE 2%-EPI 1:100,000 20 ML VIAL SQ ONE (16:07)
[2017-07-22] MEDS: FAMOTIDINE 20 MG TAB PO SCH (20:57)
[2017-07-22] MEDS: PRAVASTATIN SODIUM 40 MG TAB PO SCH (22:57)
[2017-07-22] MEDS: MORPHINE SULFATE 4 MG/ML SYRINGE IV PRN (22:57)
[2017-07-23] MEDS: MORPHINE SULFATE 4 MG/ML SYRINGE IV PRN ×2 (04:18→07:34)
[2017-07-23] MEDS: SODIUM CHLORIDE 0.9% 1,000 ML IV SCH (04:19)
[2017-07-23] MEDS: LEVOTHYROXINE 75 MCG TAB PO SCH (05:48)
[2017-07-23 07:25] LABS: Basophils % (A) 0 %; CHCM 31.1; Eosinophils % (A) 0 %; HCT 39.7 % (34.0-46.0); HDW 2.23; HGB 12.6 gm/dL (11.4-16.0); Luc # (Auto) 0.21; Luc % (Auto) 3; Lymphocytes # (A) 0.7 k/uL (1.0-4.8); Lymphocytes % (A) 10 %; MCH 28.6 pg (25.0-35.0); MCHC 31.6 g/dL (31.0-37.0); MCV 90.4 fL (80.0-100.0); Mean Platelet Volume 7.2; Monocytes # (A) 0.6 k/uL (0-1.0); Monocytes % (A) 8 %; Neutrophils # (A) 5.5 k/uL (1.3-7.7); Neutrophils % (A) 78 %; RBC 4.39 m/uL (3.80-5.40); RDW 13.3 % (11.5-15.5); WBC (Perox) 7.64
[2017-07-23] MEDS: amLODIPine 5 MG TAB PO SCH (07:33)
[2017-07-23] MEDS: LOSARTAN 50 MG TAB PO SCH (07:33)
[2017-07-23] MEDS: METOPROLOL TARTRATE 12.5 MG TAB PO SCH (07:33)
[2017-07-23] MEDS: ISOSORBIDE MONONITRATE ER 30 MG TAB.ER.24H PO SCH (07:33)
[2017-07-23] MEDS: FLECAINIDE 50 MG TAB PO SCH (07:34)
[2017-07-23] MEDS ORDERED: HYDROcodone/APAP 5-325MG 1 EACH TAB PO PRN (10:03)
[2017-07-23] MEDS ORDERED: MORPHINE SULFATE 2 MG/ML SYRINGE IV PRN (10:05)
--- NOTE | 2017-07-23 10:06 | P.PN ---
Subjective 86-year-old female being seen on rounds this morning. Patient is post op robotic-assisted lap right inguinal hernia repair with mesh done on July 22. Currently resting comfortably in bed surgical laparoscopic sites benign no redness denies dizziness lightheadedness no chest pain or shortness of breath white count this morning 7 hemoglobin stable at 12. Patient states pain medication effective for pain control Objective - Vital Signs Vital signs: Vital Signs Temp 98.4 F 07/23/17 07:00 Pulse 60 07/23/17 09:21 Resp 14 07/23/17 07:00 BP 150/76 07/23/17 07:00 Pulse Ox 95 07/23/17 07:00 Intake & Output 07/22/17 07/23/17 07/23/17 18:59 06:59 18:59 Intake Total 1913 1450 120 Output Total 605 Balance 1308 1450 120 Intake: IV 1350 Intake, IV Titration 563 1200 Amount Sodium Chloride 0.9% 1, 563 1200 000 ml @ 75 mls/hr IV . [id number] [facility] Rx#:[id number] Oral 250 120 Output: Urine 600 Estimated Blood Loss 5 Other: Voiding Method Toilet # Voids 5 - Exam Physical exam Pleasant 86-year-old female resting in bed in appears in no acute distress oriented 3 Lungs essentially clear with adequate air movement no shortness of breath noted Heart S1-S2 audible regular denying chest pain Abdomen slight surgical tenderness not distended passing gas rectally no stool states urinating no difficulty states tolerated the diet this morning with no nausea vomiting surgical laparoscopic sites no redness Extremities Venodyne's on to the bilateral lower extremities - Labs CBC & Chem 7: 07/23/17 06:32 07/21/17 07:18 Labs: Abnormal Lab Results - Last 24 Hours (Table) 07/23/17 Range/Units 06:32 Plt Count 135 L (150-450) k/uL Lymphocytes # 0.7 L (1.0-4.8) k/uL Assessment and Plan Plan: Impression Present on admission sudden onset right upper quadrant pain suspect low-grade small bowel obstruction repeat CAT scans show improvement resolving CAT scan abdomen pelvis present on admission right inguinal hernia small amount of free air in the hernia sac cannot exclude incarceration History of a right hernia repair in January 2017 Paroxysmal atrial fibrillation on anticoagulationq elquist History of a permanent pacemaker CAT scan abdomen and pelvis show: Diverticulosis no evidence of diverticulitis Present on admission hyponatremia resolved Status post July 22 robotic-assisted lap right inguinal hernia repair with mesh for recurrent incisional hernia Plan Patient is felt to be appropriate to proceed with a discharge from a surgical perspective refer to the timing of the discharge to medicine service Eloquence can be restarted in the next 24 hours IV fluid for hydration Continue postop surgical care Repeat labs follow results Pain control DVT and GI prophylaxis Increase activity The above impression and plan of care have been discussed and directed by signing physician. Diane Jones nurse practitioner acting as scribe for signing physician.
[2017-07-23] MEDS: CHOLECALCIFEROL 1,000 UNIT TAB PO SCH (13:10)
[2017-07-23] MEDS: MULTIVITAMINS, THERA 1 EACH TAB PO SCH (13:10)
[2017-07-23 14:48] VITALS: BP 94/58; PULSE 89; RESP 16; TEMP 97.2
--- NOTE | 2017-07-23 17:43 | P.DS ---
<Juliana Plascencia - Last Filed: 07/23/17 17:34> Providers Date of admission: 07/18/17 04:21 Expected date of discharge: 07/23/17 Attending physician: Gagan Segovia Consults: 07/18/17 03:02 Consult Physician Stat Consulting Provider: Leola Rousseau Consult Reason/Comments: Right inguinal hernia; R/O incarceration; SBO Do you want consulting provider notified?: Yes 07/18/17 09:21 Consult Physician Stat Consulting Provider: Rose Ly Consult Reason/Comments: cardiac eval pre op sx Do you want consulting provider notified?: Yes Primary care physician: Oscar [facility] Course: FINAL DIAGNOSES: -Acute right inguinal hernia with obstruction, status post right robotic- assisted laparoscopic inguinal hernia repair -Gastroesophageal reflux disease. -Hyperlipidemia. -Essential hypertension. -Hypothyroidism. -Severe secondary pulmonary hypertension. -Moderate tricuspid regurgitation nonrheumatic. -Colonic diverticulosis. -Permanent pacemaker. HOSPTIAL COURSE: This is an 86-year-old female who presented with increasing pain in the right lower abdomen. Patient was found have an inguinal hernia with cecum and the hernia pocket. Patient had a bowel movement and the swelling settled down. Patient admitted for internal hernia repair, Gen. surgery consulted, IV fluids initiated. Now status post robotic-assisted lab scopic right inguinal hernia repair with mesh. Patient up in a chair, ambulatory in the [place] and room, tolerating her diet, moving her bowels. Overall condition improved from admission, condition stabilized and is ready for discharge. PHYSICAL EXAM: CARDIOVASCULAR: First and second sounds noted no edema RESPIRATORY: Respiratory effort normal lung sounds clear to auscultation bilaterally. GI: Abdomen soft tender right inguinal area with surgical dressing in place no shadowing noted. Liver and spleen not palpable. PSYCHIATRY: Mood and affect normal alert and oriented 3. Patient was seen and examined by nurse practitioner Juilana Plascencia in all elements of the case discussed with attending Dr. Segovia DISPOSITION: Home to the care of her family Patient Condition at Discharge: Fair Plan - Discharge Summary New Discharge Prescriptions: New HYDROcodone/APAP 5-325MG [Roll 5-325] 1 each PO Q4HR PRN #15 tab PRN Reason: Moderate Pain Continue Pravastatin Sodium [Pravachol] 40 mg PO DAILY Isosorbide Mononitrate ER [Imdur] 30 mg PO DAILY Levothyroxine Sodium [Synthroid] 75 mcg PO DAILY Famotidine [Pepcid] 40 mg PO HS Losartan [Cozaar] 50 mg PO DAILY Multivitamins, Thera [Multivitamin (formulary)] 1 tab PO DAILY Jovanny/D3/Mag11/Zinc/Frame Opener/Kana/Bor [Caltrate 600+D Plus Tablet] 1 tab PO DAILY Nitroglycerin Sl Tabs [Nitrostat] 0.4 mg SUBLINGUAL Q5M PRN PRN Reason: Chest Pain Apixaban [Eliquis] 2.5 mg PO BID amLODIPine [Norvasc] 5 mg PO DAILY Flecainide Acetate 50 mg PO BID Metoprolol Tartrate [Lopressor] 12.5 mg PO BID Cholecalciferol [Vitamin D3] 1,000 unit PO DAILY Discharge Medication List Famotidine [Pepcid] 40 mg PO HS 01/22/17 [History] Isosorbide Mononitrate ER [Imdur] 30 mg PO DAILY 01/22/17 [History] Levothyroxine Sodium [Synthroid] 75 mcg PO DAILY 01/22/17 [History] Pravastatin Sodium [Pravachol] 40 mg PO DAILY 01/22/17 [History] Jovanny/D3/Mag11/Zinc/Frame Opener/Kana/Bor [Caltrate 600+D Plus Tablet] 1 tab PO DAILY 05/10 [History] Losartan [Cozaar] 50 mg PO DAILY 05/10/17 [History] Multivitamins, Thera [Multivitamin (formulary)] 1 tab PO DAILY 05/10/17 [History ] Apixaban [Eliquis] 2.5 mg PO BID 05/27/17 [History] Flecainide Acetate 50 mg PO BID 05/27/17 [History] Metoprolol Tartrate [Lopressor] 12.5 mg PO BID 05/27/17 [History] Nitroglycerin Sl Tabs [Nitrostat] 0.4 mg SUBLINGUAL Q5M PRN 05/27/17 [History] amLODIPine [Norvasc] 5 mg PO DAILY 05/27/17 [History] Cholecalciferol [Vitamin D3] 1,000 unit PO DAILY 07/03/17 [History] HYDROcodone/APAP 5-325MG [Roll 5-325] 1 each PO Q4HR PRN #15 tab 07/23/17 [Rx] Follow up Appointment(s)/Referral(s): Nuria Merida MD [STAFF PHYSICIAN] - 08/05/17 2:00 pm Oscar Leigh MD [Primary Care Provider] - 1 Week Rose Ly MD [STAFF PHYSICIAN] - 1 Week Patient Instructions/Handouts: Inguinal Hernia Repair (DC), Inguinal Hernia Repair (GEN) Activity/Diet/Wound Care/Special Instructions: soft bland diet advance as tolerated surgical post -op orders Discharge Disposition: HOME SELF-CARE <Gagan Segovia - Last Filed: 07/24/17 18:59> Hospital Course: Attending note. Date of service-07/24/2017 This patient was seen and examined by me . Discussed the patient with my nurse practitioner Ms. Plascencia. Feeling well. Tolerated diet. Pain well controlled. Keen to go home. On examination: Abdomen-mild tenderness, soft Investigations: White count 7 Assessment and plan: Right inguinal hernia repair. Doing well. Discharge home. care was discussed with the patient's family at the bedside
--- NOTE | 2017-07-24 13:31 | P.OP ---
Date of Procedure: 07/22/17 Preoperative Diagnosis: Right incarcerated inguinal hernia containing small bowel and cecum Atrial fibrillation Postoperative Diagnosis: Same Procedure(s) Performed: Robotic assist laparoscopic right indirect inguinal hernia repair with mesh Implants: Progrip 10x15 cm Anesthesia: STEPHANIE Surgeon: Leola Rousseau Pathology: none sent Condition: stable Disposition: PACU Indications for Procedure: 86 years old female presented with right groin bulge. Computed tomography scan shows incarcerated inguinal hernia containing cecum and small bowel. Informed consent obtained and patient elected to undergo surgery. Operative Findings: Left incarcerated indirect hernia Description of Procedure: The patient was brought to the operating room and placed in supine position. General anesthesia with endotracheal intubation was performed as per anesthesia team. Both arms were tucked against the abdominal wall and a shunt was positioned in lithotomy using yellowfin stirrups. A pratt catheter was inserted under sterile aseptic precautions. Chlorhexidine was used to prep the skin followed by application of sterile drapes and Ioban dressing. A timeout was performed to verify correct patient, correct procedure and correct side. Patient was confirmed to receive perioperative IV antibiotics, subcutaneous heparin 5000 units and bilateral SCDs were placed. A 2 mm skin incision was made in the left subcostal area and Veress needle was inserted to establish pneumoperitoneum to a pressure of 15 mmHg. A 1.5 cm supraumbilical incision was made which was deepened through the subcutaneous tissue . Two additional 8 mm skin incisions were made on either side of the midline approximately 8 cm away. A 5 mm 30 laparoscope was used to enter the peritoneum using direct Optiview technique. A 12 mm robotic trocar was inserted in the supraumbilical area and 8 mm robotic trocars were inserted on either side of the midline. The patient was placed in Trendelenburg position and the robot was brought in between the legs. The robotic arms including the camera arm were docked on the trocars. The robotic prograsp and monopolar scissors were introduced via arm 1 and 2 respectively. Upon inspection of the peritoneal cavity, right indirect inguinal hernia identified. The right hernia contained incarcerated small bowel and colon which was reduced using gentle traction and countertraction.The borja anatomical landmarks including the pubic symphysis, median and medial umbilical ligaments and bilateral epigastric vessels were identified. There were sutures present from prior left spigelian hernia repair Using monopolar scissors a peritoneal flap was created extending medially from the median umbilical ligament and laterally to the direct hernia space. Using gentle traction and countertraction the flap was developed posteriorly. Loose fibrofatty tissue was bluntly dissected. Medially the dissection was carried along the Mj's ligament till pubic tubercle was identified. Care was taken to stay away from the urinary bladder. Dissection was carried out to leave the epigastric vessels against the anterior abdominal wall and laterally beyond the hernia defect. The indirect hernia sac was completely reduced. The iliofemoral vessels were identified. The peritoneal reflection overlying the round ligament was also dissected off. Care was taken not to injure any gonadal vessels. The round ligament was doubly ligated and cut between 2 sutures. Enough inferior dissection was carried out 2 cm below the hernia defect. No direct hernia noted. The indirect hernia defect was closed using running sutures of 2-0 V lock 10x15 cm progrip mesh was rolled and introduced through the 12mm camera port. The right mesh was placed in the preperitoneal cavity with green portion overlying the pubic tubercle . The mesh was rolled upwards so that the mesh covered the direct , indirect inguinal hernia and the femoral hernia space without any kinks or folds. Similarly left parietex progrip mesh was rolled and introduced through the 8mm camera port and secured over the right direct, indirect and femoral hernia space. The peritoneal flap was then sutured to the cut edge of the peritoneum using continuous 2-0 V lock sutures. The hernia sacs were completely reduced and the mesh lay flat without any kinks or folds. The robotic arms were then undocked and 30 degree laparoscope was inserted. All the needles were removed from the abdominal cavity. The 12mm camera trocar site was closed with 2 transfascial sutures of 0 Vicryl. The sponge, instrument and needle count were correct x2. The skin was closed with interrupted sutures of 4-0 Monocryl. Dermabond skin glue was applied followed by Telfa and Tegaderm dressing. Pratt catheter was removed The patient tolerated the procedure well and was taken to post anesthesia care unit in stable condition
--- NOTE | 2017-07-25 12:56 | PN ---
PROGRESS NOTE Date of Service: 07/22/2017 PRESENTING COMPLAINT: Inguinal hernia obstruction. INTERVAL HISTORY: This patient was seen on 07/22/17. The patient had right inguinal hernia with obstruction that resolved. Pending surgery. Patient is getting anticoagulated. Family is at the bedside. REVIEW OF SYSTEMS: Done for constitutional, cardiovascular, GI, pulmonary; relevant findings as above. CURRENT MEDICATIONS: Reviewed that include anticoagulation. PHYSICAL EXAMINATION: Temperature 97.2, pulse 104, respirations 16, blood pressure 140/72, pulse ox 99%. GENERAL APPEARANCE: Sitting up, comfortable. EYES: Pupils, conjunctivae normal. NECK: JVD not raised. RESPIRATORY: Effort normal. LUNGS: Decreased breath sounds. CARDIOVASCULAR: First and second sounds, no edema. ABDOMEN: Soft, nontender. Liver and spleen not palpable. PSYCH: Alert and oriented x3. Mood and affect normal. INVESTIGATIONS: White count 7, hemoglobin 12.6. ASSESSMENT: 1. Acute right inguinal hernia with obstruction, resolved, pending surgery. 2. Gastroesophageal reflux disease. 3. Hyperlipidemia. 4. Essential hypertension. 5. Hypothyroidism. 6. Severe secondary pulmonary hypertension. 7. Moderate tricuspid regurgitation, nonrheumatic. 8. Colonic diverticulosis, asymptomatic. 9. Permanent pacemaker. 10.Anticoagulation with Lovenox. PLAN: Continue current medication and treatment plan. Case discussed with the family at the bedside. Pending surgery. MMODL / IJN: [id number] /
== END 2017-07-23 17:20 | disposition home or self-care (01) | DRG 351 ==
LOC: EC 23:21 → 3SUR 07-18 04:21
PROVIDERS: ADMIT Hospitalist; ATTEND Hospitalist
PROC: 8E0W4CZ Robotic Assisted Procedure of Trunk Region, Percutaneous Endoscopic Approach (ICD-10-PCS; 2017-07-22)
PROC: 0YU54JZ Supplement Right Inguinal Region with Synthetic Substitute, Percutaneous Endoscopic Approach (ICD-10-PCS; principal; 2017-07-22 17:25)
DX: K40.30 Unilateral inguinal hernia, with obstruction, without gangrene, not specified as recurrent (principal); I48.1 Persistent atrial fibrillation; E87.1 Hypo-osmolality and hyponatremia; I48.0 Paroxysmal atrial fibrillation; I27.2 Other secondary pulmonary hypertension; I36.1 Nonrheumatic tricuspid (valve) insufficiency; I10 Essential (primary) hypertension; E11.9 Type 2 diabetes mellitus without complications; E78.5 Hyperlipidemia, unspecified; K21.9 Gastro-esophageal reflux disease without esophagitis; E03.9 Hypothyroidism, unspecified; K57.30 Diverticulosis of large intestine without perforation or abscess without bleeding; M17.0 Bilateral primary osteoarthritis of knee; K59.00 Constipation, unspecified; Z79.01 Long term (current) use of anticoagulants; Z79.899 Other long term (current) drug therapy; Z95.0 Presence of cardiac pacemaker; Z90.49 Acquired absence of other specified parts of digestive tract
CPT/HCPCS: 36415; 74176; 74177; 80053; 81003; 82150; 82272; 82550; 82553; 83605; 83690; 84484; 85025; 85610; 85730; 86850; 86900; 86901; 87324; 93005; 96374; 96375; 99285

== ENCOUNTER → 2018-09-25 | Outpatient (CLI) | payer MEDICARE, BC ==
[2018-09-25 18:57] LABS: Albumin 4.4 g/dL (3.80-4.90); Albumin/Globulin Ratio 2.75 (1.20-2.10); Anion Gap 5.7 mmol/L (4.00-12.00); Calcium 9.2 mg/dL (8.7-10.3); Carbon Dioxide 29.3 mmol/L (21.6-31.8); Globulin 1.6 g/dL (2.1-3.7); Potassium 4.5 mmol/L (3.5-5.5); Total Bilirubin 0.8 mg/dL (0.2-1.2)
== END ==
LOC: LABWHC1 11:57
PROVIDERS: ATTEND Internal Medicine Cardiovascular Disease
DX: I48.91 Unspecified atrial fibrillation (principal); I50.9 Heart failure, unspecified
CPT/HCPCS: 36415; 80053; 83880